=== PATIENT | female | born 1980 | race Caucasian/White ===

== ENCOUNTER 2019-08-31 09:10 | Outpatient (CLI) | payer OTHER, SELFPAY ==
--- NOTE | 2019-08-31 09:30 | MM_ITS ---
WS: [id number] BILATERAL DIGITAL DIAGNOSTIC MAMMOGRAM MAMMOGRAPHY WITH CAD CLINICAL INFORMATION: LUMP IN BREAST HISTORY: Multiple bilateral breast lumps COMPARISON: None available TECHNIQUE: Bilateral CC, MLO, and ML views. FINDINGS: The breasts are composed of heterogeneous fibroglandular density, which can limit the detection of sm all underlying mass lesions. No suspicious abnormalities right breast. Dense breast tissue upper outer left breast in the area of the 2 palpable markers. Ultrasound is pending. ULTRASOUND BILATERAL BREAST TECHNIQUE: Ultrasound bilateral breast focused area of concern. CLINICAL INFORMATION: LUMP IN BREAST FINDINGS: Ultrasound RIGHT breast 9:00 position. No evidence of cystic or solid mass right breast in the area o f concern. No pathologic lesions right breast. Ultrasound LEFT breast at the 12:00 and 2:00 position. Hypoechoic irregular lesion at the 2:00 positi on measuring 1.0 x 0.6 x 0.8 cm. Dense associated shadowing. This lesion has a suspicious appearance and recommend further evaluation with ultrasound-guided biopsy. Additional palpable lesion at the 12:00 position appears to represent a slightly enlarged lymph node measuring 1.0 x 0.4 x 0.9 CM. Echogenic fatty hilum with cortical thickening. This could also be biop sied at the time of above procedure. MM/[place] [id number] IMPRESSION: Recommend Ultrasound guided biopsy of the 2 lesions LEFT breast. BI-RADS: 4C-Suspicious: Moderate FOLLOW UP: US Guided Biopsy Recommended
--- NOTE | 2019-08-31 10:33 | US_ITS ---
WS: [id number] BILATERAL DIGITAL DIAGNOSTIC MAMMOGRAM MAMMOGRAPHY WITH CAD CLINICAL INFORMATION: LUMP IN BREAST HISTORY: Multiple bilateral breast lumps COMPARISON: None available TECHNIQUE: Bilateral CC, MLO, and ML views. FINDINGS: The breasts are composed of heterogeneous fibroglandular density, which can limit the detection of sm all underlying mass lesions. No suspicious abnormalities right breast. Dense breast tissue upper outer left breast in the area of the 2 palpable markers. Ultrasound is pending. ULTRASOUND BILATERAL BREAST TECHNIQUE: Ultrasound bilateral breast focused area of concern. CLINICAL INFORMATION: LUMP IN BREAST FINDINGS: Ultrasound RIGHT breast 9:00 position. No evidence of cystic or solid mass right breast in the area o f concern. No pathologic lesions right breast. Ultrasound LEFT breast at the 12:00 and 2:00 position. Hypoechoic irregular lesion at the 2:00 positi on measuring 1.0 x 0.6 x 0.8 cm. Dense associated shadowing. This lesion has a suspicious appearance and recommend further evaluation with ultrasound-guided biopsy. Additional palpable lesion at the 12:00 position appears to represent a slightly enlarged lymph node measuring 1.0 x 0.4 x 0.9 CM. Echogenic fatty hilum with cortical thickening. This could also be biop sied at the time of above procedure. US/US breast BI limited* [id number] IMPRESSION: Recommend Ultrasound guided biopsy of the 2 lesions LEFT breast. BI-RADS: 4C-Suspicious: Moderate FOLLOW UP: US Guided Biopsy Recommended
== END 2019-08-31 09:11 | disposition home or self-care (01) ==
PROVIDERS: Family Provider Family Medicine; Visit Provider Obstetrics & Gynecology
DX: N63.21 Unspecified lump in the left breast, upper outer quadrant (principal); N63.20 Unspecified lump in the left breast, unspecified quadrant; N63.10 Unspecified lump in the right breast, unspecified quadrant
CPT/HCPCS: 76642; 77066

== ENCOUNTER 2019-09-11 12:05 | Outpatient (CLI) | payer MEDICAID, SELFPAY ==
--- NOTE | 2019-09-11 12:42 | US_ITS ---
WS: [id number] ULTRASOUND-GUIDED LEFT BREAST BIOPSY CLINICAL INFORMATION: LUMP S LEFT BREAST COMPARISON: None. FINDINGS: The procedure including risks, benefits, and complications were discussed with the patient who agreed to proceed. Using sterile technique patient was prepped and draped in the usual sterile fashion. Aft er 1% lidocaine utilizing real-time ultrasound guidance 5 14-gauge cores were obtained of the left br east lesion at the 12 o'clock position. Subsequently a titanium clip was placed in the biopsy cavity. No immediate complications. Attention was then turned to the 2:00 lesion and 5 14-gauge cores were obtained. Titanium clip was pl aced in the biopsy cavity. Pathology demonstrates : Left breast 12:00, needle core biopsy: 1. Changes consistent with fibroadenoma 2. No malignancy identified 3. Microcalifications identified Left breast 2:00, needle core biopsy: 1. Fibrocystic changes and focal changes suggestive of fibroadenoma 2. No malignancy identified 1. Uncomplicated ultrasound-guided left breast biopsy with biopsy of the 12:00 and 2:00 lesions. 2. The pathology demonstrates changes consistent with fibroadenoma at the 12:00 and 2:00 position. N o evidence of malignancy. US/[place] [id number] IMPRESSION: BI-RADS: 2-Benign FOLLOW UP: 1 year Recommend return to annual screening mammography.
== END 2019-09-11 12:06 | disposition home or self-care (01) ==
PROVIDERS: Family Provider Family Medicine; PCP Family Medicine; Visit Provider Obstetrics & Gynecology
DX: N63.21 Unspecified lump in the left breast, upper outer quadrant (principal); R92.0 Mammographic microcalcification found on diagnostic imaging of breast
CPT/HCPCS: 19083; 19084; 88305; J2001

== ENCOUNTER 2020-09-14 18:53 | Emergency (ER) | payer SELFPAY ==
--- NOTE | 2020-09-14 18:55 | XR_ITS ---
WS: [id number] Exam: XR chest 1V portable [id number] Date/Time of Exam: 09/14/2020 7:01 PM Reason For Exam: cp Comparison 02/27/2016. Findings: The lungs are clear and fully expanded. Costophrenic angles are sharp. No infiltrates. Bronchovascula r relief appears normal. Cardiac silhouette is unremarkable. Bony elements are intact. XR/XR chest 1V portable [id number] IMPRESSION: Unremarkable chest radiograph.
[2020-09-14 19:06] VITALS: BP 110/71; PULSE 64; RESP 18; TEMP 36.8; O2SAT 97; BMI 26.9
--- NOTE | 2020-09-14 19:21 | ED_ITS ---
HPI - Chest Pain General: Chief Complaint: Chest Pain Stated Complaint: CHEST PAIN Time Seen by Provider: 09/14/20 19:21 Source: patient and family Mode of arrival: ambulatory Limitations: no limitations History of Present Illness: HPI narrative: 40 yo female comes in with chest pain since 1 pm. She states she felt lightheaded and dizzy with this pain. She states it did resolve but then came back again. She had similar pain last . She did see her PCP on saturday. She is scheduled to see a paralegal supervisor next week. She states it feels like someone is sitting on her chest. She stated her arms felt funny at that time as well. She rated it as a 8-9/10 at it's worse. MD complaint: chest pain and chest heaviness Timing of current episode: still present (less intense pain, now 2/10) Prior episodes: Yes Onset: during rest Pain location: left chest Pain radiation: left arm and jaw/teeth Severity: similar to previous episodes Pain scale (0-10): 9 Quality: heaviness Relieving factors: nothing Exacerbating factors: nothing Associated symptoms: Reports nausea (no new N/V) and vomiting (no new N/V); Deny abdominal pain, diaphoresis, dyspnea, fever(s), leg edema, palpitations, sense of impending doom or syncope Treatment prior to arrival: none Review of Systems General: Reports: 10 or more systems reviewed and unremarkable except in HPI and below Const: Denies: fever(s), chills, body aches, fatigue, night sweats or diaphoresis Eyes: Denies: blurry vision ENMT: Denies: throat pain or odynophagia Card: Reports: chest pain (current chief complaint) and lightheadedness; Denies: palpitations, irregular heart rhythm, edema, swelling of feet/ankles, syncope, pre-syncope, dyspnea on exertion, orthopnea, leg pain with exertion or acrocyanosis Resp: Denies: dyspnea, productive cough, non-productive cough, wheezing, stridor, pain on inspiration or chest congestion GI: Reports: nausea (no new N/V) and vomiting (no new N/V); Denies: abdominal pain, dysphagia, heartburn, diarrhea, constipation or bloating : Denies: flank pain, difficulty voiding or dysuria Musc: Reports: other (arms felt funny); Denies: neck pain, back pain, extremity pain, extremity swelling, joint pain, joint swelling, joint redness, joint warmth, joint stiffness, limited range of motion, muscle cramps, muscle weakness or decrease in muscle mass Neuro: Reports: headache(s) (she stated chest pain went up here jaw into her head); Denies: weakness in extremities, difficulty walking, dizziness, vertigo or confusion Physical Exam Narrative: EXAM NARRATIVE: 40 yo female appears in no acute distress. Const: COMMON NORMALS: no acute distress, average body habitus, patient oriented x3, no limitations, healthy appearing, alert and well nourished GENERAL APPEARANCE: cooperative, comfortable, well kempt and well developed; not in distress and not anxious NUTRITIONAL APPEARANCE: not cachectic ORIENTATION/CONSCIOUSNESS: Yes awake, Yes oriented to person, Yes oriented to place and Yes oriented to time HENMT: COMMON NORMALS: normocephalic and atraumatic HEAD & SCALP: normal to inspection, normocephalic and atraumatic FACE & SINUS: normal facial exam and face symmetric MOUTH: Normal oral and palatal mucosa present Eye: COMMON NORMALS: Equal, round and reactive pupils present, EOMs intact bilaterally, conjunctivae normal and no scleral icterus GENERAL EYE: appearance normal, both eyes and all related structures CONJUNCTIVA: Yes conjunctivae normal PUPIL: Yes Equal, round and reactive pupils present Neck/C-Spine: COMMON NORMALS: full ROM, supple, no meningeal signs and no JVD GENERAL: Yes normal visual inspection and Yes trachea midline Resp: COMMON NORMALS: normal respiratory effort, No retractions, No use of accessory muscles and clear to auscultation bilaterally EFFORT & INSPECTION: Yes able to speak in complete sentences, Yes symmetric chest movement, No respiratory distress, No decreased respiratory effort and No uses accessory muscles AUSCULTATION: clear to auscultation bilaterally Cardio: COMMON NORMALS: no JVD, regular rate, regular rhythm and No murmurs present (Cardio) JUGULAR VENOUS DISTENTION: no JVD RATE: regular rate RHYTHM: regular rhythm GI: COMMON NORMALS: Soft to palpation, non-tender and No hepatosplenomegaly present INSPECTION: Yes normal to inspection PALPATION: Yes Soft to palpation and Yes No hepatosplenomegaly present : COMMON NORMALS: Yes no CVA tenderness BLADDER/KIDNEY EXAM: Yes no CVA tenderness Back/Pelvis: COMMON NORMALS: no CVA tenderness THORACIC SPINE/UPPER BACK: Yes thoracic spinal tenderness and Yes paraspinal muscle tenderness Extremity: COMMON NORMALS: normal to inspection, full ROM, capillary refill normal, no joint enlargement, no clubbing, cyanosis or edema, no calf tenderness and no pedal edema Neuro: COMMON NORMALS: patient oriented x3 SENSORIUM/ORIENTATION: Yes alert, Yes oriented to person, Yes oriented to place and Yes oriented to time MENINGEAL SIGNS: Yes no meningeal signs Psych: APPEARANCE: Yes well kempt Skin: COMMON NORMALS: no rashes or lesions noted, no wounds, turgor normal, no jaundice, no petechiae and no mottling GENERAL SKIN EXAM: no rashes or lesions noted and turgor normal Course Vital Signs: Vital signs: Vital Signs Temperature 98.3 F 09/14/20 19:06 Pulse Rate 86 09/14/20 21:16 Respiratory Rate 22 H 09/14/20 21:16 Blood Pressure 110/77 09/14/20 21:16 Pulse Oximetry 98 09/14/20 21:16 MDM - Chest Pain Lab Data: Labs: Lab Results 09/14/20 09/14/20 09/14/20 Range/Units 19:29 19:29 19:29 WBC 7.8 (4.0-10.0) 10^3/ uL RBC 4.94 (4.1-5.3) 10^6/u L Hgb 12.6 (11.5-15.3) g/dL Hct 39.2 (37.0-47.0) % MCV 79.4 L (81-99) fL MCH 25.5 L (28.0-34.0) pg MCHC 32.1 (30.0-36.0) g/dL RDW 15.3 H (12.1-15.1) % Plt Count 370 (130-400) 10^3/c mm MPV 9.5 (7.4-10.4) fL Neut % (Auto) 53.3 % Lymph % (Auto) 38.7 % Wilkes % (Auto) 6.5 % Eos % (Auto) 1.0 % Baso % (Auto) 0.4 % Neut # (Auto) 4.17 (1.8-7.7) 10^3/u L Lymph # (Auto) 3.0 (0.8-4.8) 10^3/u L Wilkes # (Auto) 0.5 (0.2-0.9) 10^3/u L Eos # (Auto) 0.1 (0.0-0.8) 10^3/u L Baso # (Auto) 0.0 (0.0-0.1) 10^3/u L Nucleated RBC % (a uto) 0 % Nucleated RBCs # 0.0 /100WBC Sodium 142 (136-145) mmol/L Potassium 3.9 (3.5-5.1) mmol/L Chloride 108 H (98-107) mmol/L Carbon Dioxide 19 L (22-29) mmol/L Anion Gap 18.9 (5-19) BUN 8 (6-20) mg/dL Creatinine 0.7 (0.5-0.9) mg/dL GFR Calculation 93.2 (90-130) mL/min Glucose 86 (65-115) mg/dL Calculated Osmolal ity 292 (285-295) mOsm/k g Calcium 8.5 (8.5-10.5) mg/dL Total Bilirubin 0.2 (0.15-1.2) mg/dL AST 18 (0-32) U/L ALT 12 (0-33) U/L Alkaline Phosphata se 74 (35-105) IU/L Troponin T Baselin e 9 (0-10) ng/L Troponin T 120 Min praveen (0-10) ng/L Delta Troponin T (0-10) ABS# Total Protein 7.8 (6.6-8.7) g/dL Albumin 4.4 (3.5-5.2) g/dL Globulin 3.4 (1.3-4.6) g/dL 09/14/20 Range/Units 21:00 WBC (4.0-10.0) 10^3/ uL RBC (4.1-5.3) 10^6/u L Hgb (11.5-15.3) g/dL Hct (37.0-47.0) % MCV (81-99) fL MCH (28.0-34.0) pg MCHC (30.0-36.0) g/dL RDW (12.1-15.1) % Plt Count (130-400) 10^3/c mm MPV (7.4-10.4) fL Neut % (Auto) % Lymph % (Auto) % Wilkes % (Auto) % Eos % (Auto) % Baso % (Auto) % Neut # (Auto) (1.8-7.7) 10^3/u L Lymph # (Auto) (0.8-4.8) 10^3/u L Wilkes # (Auto) (0.2-0.9) 10^3/u L Eos # (Auto) (0.0-0.8) 10^3/u L Baso # (Auto) (0.0-0.1) 10^3/u L Nucleated RBC % (a uto) % Nucleated RBCs # /100WBC Sodium (136-145) mmol/L Potassium (3.5-5.1) mmol/L Chloride (98-107) mmol/L Carbon Dioxide (22-29) mmol/L Anion Gap (5-19) BUN (6-20) mg/dL Creatinine (0.5-0.9) mg/dL GFR Calculation (90-130) mL/min Glucose (65-115) mg/dL Calculated Osmolal ity (285-295) mOsm/k g Calcium (8.5-10.5) mg/dL Total Bilirubin (0.15-1.2) mg/dL AST (0-32) U/L ALT (0-33) U/L Alkaline Phosphata se (35-105) IU/L Troponin T Baselin e (0-10) ng/L Troponin T 120 Min praveen 8.92 (0-10) ng/L Delta Troponin T -0.08 L (0-10) ABS# Total Protein (6.6-8.7) g/dL Albumin (3.5-5.2) g/dL Globulin (1.3-4.6) g/dL Discharge Plan Discharge Prescriptions: No Action No Known Home Medications RF: 0 Referrals: Rakesh Cruz [Primary Care Provider] - Coding Level of Care Code ED Monorail Operator for Camilla Brown
[2020-09-14 19:36] LABS: Basophils % 0.4 %; Eosinophils # 0.1 10^3/uL (0.0-0.8); Hematocrit 39.2 % (37.0-47.0); Hemoglobin 12.6 g/dL (11.5-15.3); Lymphocytes % 38.7 %; Mean Corpuscular HGB Conc 32.1 g/dL (30.0-36.0); Mean Corpuscular Hemoglobin 25.5 pg (28.0-34.0); Mean Corpuscular Volume 79.4 fL (81-99); Mean Platelet Volume 9.5 fL (7.4-10.4); Monocytes # 0.5 10^3/uL (0.2-0.9); Monocytes % 6.5 %; Neutrophils # 4.17 10^3/uL (1.8-7.7); Neutrophils % 53.3 %; Nucleated Red Blood Cells % 0 %; Platelet Count 370 10^3/cmm (130-400); Red Blood Count 4.94 10^6/uL (4.1-5.3); Red Cell Distribution Width 15.3 % (12.1-15.1); White Blood Count 7.8 10^3/uL (4.0-10.0)
[2020-09-14 19:53] VITALS: PULSE 96; RESP 21; O2SAT 99
--- NOTE | 2020-09-14 19:53 | PC.NURSE ---
EKG taken and given to provider
[2020-09-14 20:23] LABS: Troponin(5th) Baseline 9 ng/L (0-10)
[2020-09-14 20:24] LABS: Alanine Aminotransferase 12 U/L (0-33); Albumin Level 4.4 g/dL (3.5-5.2); Alkaline Phosphatase 74 IU/L (35-105); Anion Gap 18.9 (5-19); Aspartate Amino Transferase 18 U/L (0-32); Blood Urea Nitrogen 8 mg/dL (6-20); Calcium 8.5 mg/dL (8.5-10.5); Carbon Dioxide 19 mmol/L (22-29); Chloride 108 mmol/L (98-107); Globulin 3.4 g/dL (1.3-4.6); Glomerular Filtration Rate 93.2 mL/min (90-130); Glucose 86 mg/dL (65-115); Osmolality Calculated 292 mOsm/kg (285-295); Potassium 3.9 mmol/L (3.5-5.1); Sodium 142 mmol/L (136-145); Total Bilirubin 0.2 mg/dL (0.15-1.2); Total Protein 7.8 g/dL (6.6-8.7)
[2020-09-14 20:48] VITALS: BP 121/53; PULSE 83; RESP 20; O2SAT 99
--- NOTE | 2020-09-14 21:09 | PC.NURSE ---
when coming out of another exam room the visitor for this patient was leaving the room stating how do I get the hell out of here . When this nurse went into patient exam room patient was pacing, visibly upset, saying I have to leave now or he'll leave me, he's got my truck keys. Asked patient if she wanted to speak with Dr. Cadet. Patient said no, get this IV out now . This nurse notified Dr. Cadet and asked community health representative to get AMA form. AMA form signed and IV dc'd.
[2020-09-14 21:16] VITALS: BP 110/77; PULSE 86; RESP 22; O2SAT 98
[2020-09-14 21:24] LABS: Troponin 5 2HR 8.92 ng/L (0-10)
[2020-09-14 21:28] LABS: Troponin 5 2HR Delta -0.08 ABS# (0-10)
== END 2020-09-14 21:16 | disposition left against medical advice (07) ==
PROVIDERS: Emergency Medicine; Emergency Provider Emergency Medicine; PCP Family Medicine
DX: R07.9 Chest pain, unspecified (principal)
CPT/HCPCS: 71045; 80053; 84484; 85025; 99284

== ENCOUNTER 2020-10-06 07:00 | Outpatient (CLI) | payer SELFPAY ==
--- NOTE | 2020-10-06 07:15 | USCV_ITS ---
Eloina Orellana Age: 40 Gender: F : 1980 Exam Date: 10/06/2020 07:31 Ordering Phys: Samara Mathews MD ([email or web address]) Technologist: Mckay Casillas Exam Location: [facility] [place] Indication: PALPITATIONS BP: 109 / 66 HR: 47 Rhythm: Sinus Technical Quality: Good MEASUREMENTS (Male / Female) Normal Values 2D ECHO LV Diastolic Diameter PLAX 4.6 cm 4.2 - 5.9 / 3.9 - 5.3 cm LV Systolic Diameter PLAX 2.2 cm IVS Diastolic Thickness 1.5 cm 0.6 - 1.0 / 0.6 - 0.9 cm IVS Systolic Thickness 1.7 cm LVPW Diastolic Thickness 1.3 cm 0.6 - 1.0 / 0.6 - 0.9 cm LVPW Systolic Thickness 2.4 cm LVOT Diameter 2.0 cm LV Ejection Fraction 2D Teich 83.1 % LV Ejection Fraction MOD 2C 85.1 % LV Ejection Fraction 2C AL 87.4 % LA Diameter 3.6 cm LA Width 4.4 cm LA Height 5.0 cm RA Width 4.0 cm RA Height 4.2 cm Aorta at Sinotubular Diameter 2.9 cm M-MODE LV Diastolic Diameter MM 4.7 cm 4.2 - 5.9 / 3.9 - 5.3 cm LV Systolic Diameter MM 2.3 cm LV Ejection Fraction MM Teich 83.2 % IVS Diastolic Thickness MM 0.9 cm 0.6 - 1.0 / 0.6 - 0.9 cm IVS Systolic Thickness MM 1.5 cm LVPW Diastolic Thickness MM 1.2 cm 0.6 - 1.0 / 0.6 - 0.9 cm LVPW Systolic Thickness MM 1.9 cm Aortic Annulus Diameter 2.9 cm LA Ao Ratio MM 1.2 MV E Point Septal Separation 0.3 cm DOPPLER AV Peak Velocity 358.0 cm/s LVOT Peak Velocity 264.0 cm/s AV Area Cont Eq vti 2.8 cm squared AV Area Cont Eq pk 2.3 cm squared MV Area PHT 3.7 cm squared Mitral E to A Ratio 1.4 MV E' Velocity 50.0 cm/s Mitral E to MV E' Ratio 7.4 Mitral E to LV E' Lateral Ratio 6.8 Mitral E to LV E' Septal Ratio 8.4 TR Peak Velocity 209.1 cm/s TR Peak Gradient 17.5 mmHg TR Mean Velocity 143.5 cm/s TR Mean Gradient 9.0 mmHg TR Velocity Time Integral 46.0 cm Right Atrial Pressure 3.0 mmHg Pulmonary Artery Systolic Pressu 20.5 mmHg PV Peak Velocity 104.0 cm/s FINDINGS Left Ventricle Normal left ventricular cavity size. Increased left ventricular wall thickness. Severe concentric left ventricular hypertrophy. Normal left ventricular systolic function. Left ventricular ejection fraction is estimated at 70-75 %. No regional wall motion abnormalities. Normal diastolic function. Right Ventricle Normal right ventricular size and systolic function. Right ventricular systolic pressure 20.5 mmHg. Right Atrium Normal right atrial size. Left Atrium Mildly increased left atrial size. Mitral Valve Moderately thickened mitral valve. Systolic anterior motion of anterior mitral valve leaflet. No mitral valve stenosis. Mild somewhat posteriorly directed mitral valve regurgitation. Aortic Valve Possibly bicuspid aortic valve. No aortic valve stenosis. Mild aortic valve regurgitation. Flow acceleration noted in left ventricular outflow tract. Peak velocity through left ventricular outflow tract of 3.6 m/sec and peak gradient 51 mm Hg and mean gradient 24 mm Hg. Tricuspid Valve Structurally normal tricuspid valve. Mild tricuspid valve regurgitation. Pulmonic Valve Pulmonic valve not well visualized. Pericardium No pericardial effusion. Aorta Normal size aortic root and proximal ascending aorta. CONCLUSIONS 1. Normal left ventricular cavity size. Severe concentric left ventricular hypertrophy. Normal left ventricular systolic function. Left ventricular ejection fraction is estimated at 70- 75 %. No regional wall motion abnormalities. Normal diastolic function. 2.Mildly increased left atrial size. 3. Moderately thickened mitral valve. Systolic anterior motion of anterior mitral valve leaflet. Mild somewhat posteriorly directed mitral valve regurgitation. 4. Possibly bicuspid aortic valve. Flow acceleration noted in left ventricular outflow tract. Peak velocity through left ventricular outflow tract of 3.6 m/sec and peak gradient 51 mm Hg and mean gradient 24 mm Hg. No aortic valve stenosis. Mild aortic valve regurgitation. 5. No prior similar studies to compare. Samara Mathews MD (Electronically Signed) Final Date: 09 October 2020 12:04 S
== END 2020-10-06 07:01 | disposition home or self-care (01) ==
LOC: US 07:02
PROVIDERS: PCP Nurse Practitioner Family; Visit Provider Internal Medicine Cardiovascular Disease
DX: R00.2 Palpitations (principal); R01.1 Cardiac murmur, unspecified; I08.0 Rheumatic disorders of both mitral and aortic valves
CPT/HCPCS: 93306

== ENCOUNTER → 2020-11-22 10:13 | Outpatient (BNVA) | payer OTHER, SELFPAY | PROVIDERS: PCP Nurse Practitioner Family; Visit Provider Internal Medicine Cardiovascular Disease | DX: Z01.818 Encounter for other preprocedural examination (principal); Z20.822 Contact with and (suspected) exposure to COVID-19 | CPT/HCPCS: 87635 ==

== ENCOUNTER 2020-11-28 10:37 | Day surgery (SDC) | payer SELFPAY ==
[2020-11-25 08:25] VITALS: BMI 26.9
[2020-11-28 11:07] VITALS: BP 116/64; PULSE 48; RESP 18; TEMP 36.8; O2SAT 100
[2020-11-28] MEDS: sodium chloride 0.9% 1,000 ML 30 ML IV (11:13)
--- NOTE | 2020-11-28 11:41 | ANES.PREANE2 ---
Pre-Anesthetic Assessment Pre-Anesthetic Assessment: Height/Weight: Height 1.57 m Weight 66.678 kg Temp Pulse Resp BP Pulse Ox 98.3 F 48 L 18 116/64 100 11/28/20 11:07 11/28/20 11:07 11/28/20 11:07 11/28/20 11:07 11/28/20 11:07 Preop Diagnosis: HOCM Proposed Procedure: Operation Date: 11/28/20 12:00 Proposed Procedures p ANATOLY 29159 I34.0(Not Applicable) - Samara Mathews MD Familial anesthetic complications: None Was Beta Aditya taken within 24 hours: Yes Was Clonidine taken within 24 hours: N/A Last intake: Intake > 8 hrs Last Liquid Date 11/27/20 Last Solid Date 11/27/20 Social: Social History: Alcohol and Tobacco Comment: 2-4 beers a day Exam: Pre-Anes Outpt Exam: alert, oriented x 3, clear to auscultation bilaterally and regular rate & rhythm Airway: Cervical ROM: WNL MP: 3 Dentition: Other (missing, poor dentition) CV/HEM: Comments: HCM w/ WU, AVR and MVR --> avoid tachycardia, increased contractility, and volume contraction Anesthetic Plan: ASA status: 3 Anesthesia: MAC Risk of > 500 ml blood loss (7ml/kg in children): No Meds/Allergies Current Medications: Current Medications Generic Name Dose Route Start Last Admin Trade Name Freq PRN Reason Stop Dose Admin Sodium Chloride 1,000 mls @ 30 ml s/hr 11/28/20 11:15 11/28/20 11:13 Sodium Chloride 0.9% IV 11/29/20 11:14 30 mls/hr .Q24H YASMIN Administration PFSH Anesthesia PFSH: Medical History (Updated 10/19/20 @ 12:51 by Samara Mathews MD) Aortic valve regurgitation Mitral valve regurgitation Surgical History Hx of section Family History Brother Hypertension Grandmother Hypertension Diabetes Mother Hypertension Stroke Diabetes Cancer Breast Grandfather Cancer Father Cirrhosis of liver Social History Smoking and tobacco status: current every day smoker Alcohol intake: current Alcohol intake frequency: 3 or more drinks per day Marital status: Female Reproductive History: Date of last menstrual period: 11/21/20 Data Anesthesia Cardiac Studies: Holter Monitor 10/12/20
--- NOTE | 2020-11-28 11:45 | W.PM.OPSFHP ---
Same Day Surgery H&P Indication for Procedure/HPI DATE OF PROCEDURE: November 28, 2020 CHIEF COMPLAINT/INDICATIONFOR SURGICAL PROCEDURE: 40 yo woman with suspicion of bicuspid aortic valve and HOCM on last echo. Other findings being: Systolic anterior motion of anterior mitral valve leaflet. Mild somewhat posteriorly directed mitral valve regurgitation. Possibly bicuspid aortic valve. Flow acceleration noted in left ventricular outflow tract. Peak velocity through left ventricular outflow tract of 3.6 m/sec and peak gradient 51 mm Hg and mean gradient 24 mm Hg. No aortic valve stenosis. Mild aortic valve regurgitation. She is here today for assessment of aortic valve, mitral valve and LVOT. PREOP DIAGNOSIS: HOCM PLANNED PROCEDRUE: Operation Date: 11/28/20 12:00 Proposed Procedures p ANATOLY 67526 I34.0(Not Applicable) - Samara Mathews MD Medications/Allergies* Home Medications Medication Instructions Recorded Confirmed Type ondansetron HCl 4 mg tablet 4 mg PO Q8H 09/21/20 11/28/20 History Allergies/Adverse Reactions Allergy/AdvReac Type Severity Reaction Status Date / Time morphine Allergy ALGY-Hives Verified 11/28/20 11:06 Current Medications: Generic Name Dose Route Start Last Admin Trade Name Freq PRN Reason Stop Dose Admin Sodium Chloride 1,000 mls @ 30 mls/hr 11/28/20 11:15 11/28/20 11:13 Sodium Chloride 0.9% IV 11/29/20 11:14 30 mls/hr .Q24H YASMIN Administration Pertinent History/Comorbid Conditions* Medical History (Updated 10/19/20 @ 12:51 by Samara Mathews MD) Aortic valve regurgitation Mitral valve regurgitation Surgical History (Updated 09/21/20 @ 10:32 by Samara Mathews MD) Hx of section Family History (Updated 09/21/20 @ 10:05 by Apple Soriano RN) Diabetes Grandmother Mother Cirrhosis of liver Father Cancer Mother Breast Grandfather Hypertension Brother Grandmother Mother Stroke Mother Social History Smoking and tobacco status: current every day smoker Alcohol intake: current Alcohol intake frequency: 3 or more drinks per day Marital status: Pertinent Exam Findings alert, oriented x 3, clear to auscultation bilaterally, regular rate & rhythm and procedure specific exam findings (ASA II, Airway 3) Recommendations Surgery/Procedure today Coding Level of Care Code Acute Nematology Teacher for Xenag Stephanie
--- NOTE | 2020-11-28 12:00 | USCV_ITS ---
Eloina Orellana Age: 40 Gender: F : 1980 Exam Date: 11/28/2020 12:15 Ordering Phys: Samara Mathews MD ([email or web address]) Technologist: Shayy Daily Exam Location: [facility] – [place] Indication: Severe left ventricular hypertrophy, bicuspid aortic valve, aortic regurgitation, ?HOCM BP: 126 / 49 HR: 64 Rhythm: Sinus Technical Quality: Good MEASUREMENTS (Male / Female) Normal Values DOPPLER AV Peak Velocity 365.8 cm/s LVOT Peak Velocity 306.0 cm/s Medications Patient given IV sedation by anesthesia service, for details please refer to the anesthesia report. Complications To patient easily. Attempts x1. No blood on probe post procedure. Patient tolerated procedure well. Proc. Components The patient was brought to the ANATOLY examination room in a fasting state after obtaining an informed consent. The ANATOLY probe was passed into the posterior pharynx , mid-esophagus, distal esophagus, and gastric fundus. The patient tolerated the procedure well and there were no complications. FINDINGS Left Ventricle Normal left ventricular cavity size and systolic function. Moderately to markedly increased left ventricular wall thickness. Severe asymmetric left ventricular hypertrophy ( IVSd=2.7 cm, LVPWd=1.3 cm) . Left ventricular ejection fraction is estimated at 70-75 %. No regional wall motion abnormalities. Flow acceleration noted in left ventricular outflow tract. Peak left-ventricular outflow velocity of 4 m/s and peak gradient 64 mmHg. Right Ventricle Normal right ventricular size and systolic function. Right ventricular systolic pressure 29 mmHg. Right Atrium Normal right atrial size. Left Atrium Mildly increased left atrial size. LA Appendage Normal left atrial appendage. Normal flow velocities in the left atrial appendage. No thrombus visualized in the left atrial appendage. IA Septum Normal interatrial septum. No patent foramen ovale or atrial septal defect by color Doppler or agitated saline study. Mitral Valve Systolic anterior motion of anterior mitral leaflet. No mitral valve stenosis. Trace to mild eccentric mitral valve regurgitation. Aortic Valve Bicuspid Type 1 aortic valve (fusion of right and left coronary cusp). No aortic valve stenosis. Mild to moderate aortic valve regurgitation. Tricuspid Valve Structurally normal tricuspid valve. No tricuspid valve stenosis. Trace to mild tricuspid valve regurgitation. Pulmonic Valve Structurally normal pulmonic valve. Trace pulmonary valve regurgitation. Pericardium No pericardial effusion. Aorta Normal size aortic root and proximal ascending aorta. No aortic dilation aneurysm or dissection noted. CONCLUSIONS 1. Normal left ventricular cavity size and systolic function. Moderately to markedly increased left ventricular wall thickness. Severe asymmetric left ventricular hypertrophy ( IVSd=2.7 cm, LVPWd=1.3 cm) . Left ventricular ejection fraction is estimated at 70-75 %. No regional wall motion abnormalities. 2. Flow acceleration noted in left ventricular outflow tract. Peak left-ventricular outflow velocity of 4 m/s and peak resting gradient 64 mmHg. 3. Bicuspid Type 1 aortic valve (fusion of right and left coronary cusp). No aortic valve stenosis. Mild to moderate aortic valve regurgitation. 4. Systolic anterior motion of anterior mitral leaflet. Trace to mild eccentric mitral valve regurgitation. 5. Pulmonary artery pressure estimated at 29 mmHg. 6. No prior similar studies to compare. Samara Mathews MD (Electronically Signed) Final Date: 09 December 2020 17:05 S
--- NOTE | 2020-11-28 13:08 | PM.ACPR ---
Procedure/Consent Time out: Time Out Performed: Yes Consent: Consent for Procedure: Consent obtained from patient, Risks & Benefits reviewed and Agrees to proceed with procedure Procedure Narrative: ANATOLY Procedure note Indication: Evaluation of aortic valve, mitral valve and HOCM Sedation: Propofol by anesthesia The patient was brought down to the GI lab. Procedure was explained to the patient in detail and informed consent was obtained. Timeout was called. After achieving adequate sedation, the probe was inserted on first attempt. No blood on the probe post procedure. Prelim report: Normal left ventricle size and systolic function. Asymmetric left ventricular hypertrophy with WU of anterior mitral valve leaflet. At least moderate MR. Bicuspid aortic valve. No left atrial or left atrial appendage mass or thrombus visualized. No ASD or PFO identified. Full report to follow. Patient tolerated the procedure well and initial recovery in GI lab and subsequently was discharged home. No changes to medications were made. Acute Procedures Epistaxis Control: Time out performed: Yes
[2020-11-28 13:09] VITALS: BP 101/58; PULSE 69; RESP 18; TEMP 36.6; O2SAT 97
[2020-11-28 13:23] VITALS: BP 94/62; PULSE 60; RESP 18; O2SAT 99
--- NOTE | 2020-11-28 14:24 | ANE.PACU2 ---
Inpatient post-anesthesia follow up: Airway intact: Yes Vital signs: Temperature 97.8 F Pulse Rate 60 Respiratory Rate 18 Blood Pressure 94/62 Pulse Oximetry 99 Oxygen Delivery Me thod Room Air Oxygen Flow Rate Fraction of Inspir ed Oxygen Hydration adequate: Yes Nausea and vomiting: No Pain level: 2 Mental status: Baseline
== END 2020-11-28 13:59 | disposition home or self-care (01) ==
PROVIDERS: PCP Nurse Practitioner Family; Visit Provider Internal Medicine Cardiovascular Disease
PROC: (CPT 93312; principal; 2020-11-28 12:00)
DX: I34.0 Nonrheumatic mitral (valve) insufficiency (principal); F17.210 Nicotine dependence, cigarettes, uncomplicated
CPT/HCPCS: 81025; 93312; 93318; 93320; 93325; 96360; 96361; J2704; J7030

== ENCOUNTER 2020-12-07 10:59 | Outpatient (CLI) | payer SELFPAY ==
[2020-12-07 12:03] VITALS: BMI 28.7
--- NOTE | 2020-12-07 12:04 | ECG_ITS ---
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 Interpretive Statements NAME OF STUDY: TREADMILL STRESS ECHOCARDIOGRAM INDICATION: Hypertrophic cardiomyopathy protocol PROCEDURE: At the baseline, the patient's blood pressure was 153/77 mm Hg with a heart rate of 58 bpm. The baseline electrocardiogram showed normal sinus rhythm, right axis deviation, IVCD. Possible old anteroseptal infarct. The patient exercised for 6 minutes and 21 seconds on a [standard Carlos A protocol]. Patient attained a maximum heart rate of 131 beats per minute( 72 % of the maximum predicted heart rate) with a blood pressure at the peak exercise of 1773/81 mm Hg. The EKG at the peak exercise revealed sinus tachycardia with no significant St-T wave changes. Patient did not have any chest pain or any significant EKG changes with the exercise. Study was terminated due to exertional fatigue. During the recovery phase, there were no new changes. Blood pressure at the end of the recovery phase was 91/74 mm Hg with a heart rate of 68 beats per minute. Echocardiographic pictures were taken at the baseline, immediately following the peak exercise and during the recovery phase. CONCLUSION: 1. Normal EKG response to treadmill exercise with submaximal stress. 2. No exercise-induced chest pain or cardiac arrhythmia. 3. Patient reached 72% MPHR after exercising for 6 minutes 20 seconds. Decreased for age exercise tolerance, attained a maximum of 10.2 METs. Maximum VO2 of 35.7 ml/kg/min. 4. Please see separate report for the echocardiographic response to exercise. Electronically Signed On 12-16-2020 8:04:06 CDT by Samara Mathews M.D. [id number]
--- NOTE | 2020-12-07 12:12 | USCV_ITS ---
Stress Echo Eloina Orellana Age: 40 Gender: F : 1980 Exam Date: 12/07/2020 12:25 Ordering Phys: Samara Mathews MD ([email or web address]) Technologist: Exam Location: [facility] – [place] Indication: HCM Protocol Rhythm: Sinus Patient History: Cardiac Medications: Beta bill Medications in past 24 hours: Contrast: Stress Results Protocol: Carlos A Total dose(mL): Exercise Duration (min:sec): 6:20 METS: 10.2 Resting HR: 69 Resting BP: 153 / 77 Peak HR: 131 Peak BP: 173 / 93 Max Predicted HR: 181 72 % Max Predicted HR Target HR: 154 Double Product: [id number] Stress Summary: The patient's target heart rate was not achieved due to fatigue BP Response: Normal Reason for Termination: Maximal effort/unable to continue Cardiac Symptoms: None ECG Analysis Resting ECG: Stress ECG: Arrhythmia: MEASUREMENTS (Male/Female) Normal Values FINDINGS PROCEDURE: At the baseline, the patient's blood pressure was 153/77 mmHg with a heart rate of 69 bpm. The patient exercised for 6 minutes and 20 seconds on a standard Carlos A protocol. Patient attained a maximum heart rate of 131 beats per minute( 72 % of the maximum predicted heart rate) with a blood pressure at the peak exercise of 173/93 mm Hg. During the recovery phase, there were no new changes. Echocardiographic pictures were taken at the baseline, immediately following the peak exercise and during the recovery phase. Baseline echocardiogram: Normal left ventricular size and hyperdynamic systolic function with ejection fraction estimated at 75 %. No regional wall motion abnormalities. Somewhat asymmetric septal hypertrophy (basal to mid septal wall). Resting left ventricular outflow tract gradient of 71 mm Hg (peak velocity 4.2 m/sec). Left ventricular outflow tract gradient with valsalva of 117 mm Hg (5.4 m.sec). Turbulence noted in left ventricular outflow tract. Thickened and elongated anterior mitral valve leaflet with systolic anterior motion of anterior mitral leaflet. Mild mitral valve regurgitation. Mild to moderate AI. Normal right ventricle size and systolic function. Normal left and right atrial size. No pericardial effusion. Peak exercise echocardiogram: Marked augmentation of left ventricular systolic function with exercise. No new regional wall motion abnormalities. Left ventricular outflow tract gradient post exercise of 96 mm Hg (4.9 m/sec) Recovery echocardiogram: Left ventricular systolic function normalizes. No regional wall motion abnormalities. CONCLUSIONS 1. This is a treadmill stress echocardiogram with HCM protocol. 2. Decreased exercise tolerance for age. Patient exercised for 6 minutes and 20 seconds and achieves peak HR of 131 bpm (72% of maximum predicted heart rate). 3. Normal left ventricular size and hyperdynamic systolic function with ejection fraction estimated at 75 %. No regional wall motion abnormalities. Somewhat asymmetric septal hypertrophy (basal to mid septal wall). Resting left ventricular outflow tract gradient of 71 mm Hg (peak velocity 4.2 m/sec). Left ventricular outflow tract gradient with valsalva of 117 mm Hg (5.4 m.sec). Turbulence noted in left ventricular outflow tract. Thickened and elongated anterior mitral valve leaflet with systolic anterior motion of anterior mitral leaflet. Mild mitral valve regurgitation. Mild to moderate AI 4. Left ventricular outflow tract gradient post exercise of 96 mm Hg (4.9 m/sec). 5. Normal echocardiographic response to sub maximal exercise. 6. Please see separate report for the EKG portion of the study. Samara Mathews MD (Electronically Signed) Final Date: 16 December 2020 07:25 S
[2020-12-07 13:07] VITALS: BP 91/74; PULSE 68
== END 2020-12-07 11:00 | disposition home or self-care (01) ==
LOC: CDL 11:00
PROVIDERS: PCP Nurse Practitioner Family; Visit Provider Internal Medicine Cardiovascular Disease
DX: I42.2 Other hypertrophic cardiomyopathy (principal); I05.9 Rheumatic mitral valve disease, unspecified
CPT/HCPCS: 93017; 93350

== ENCOUNTER 2020-12-08 07:57 | Outpatient (CLI) | payer SELFPAY ==
--- NOTE | 2020-12-08 08:04 | MM_ITS ---
WS: [id number] SCREENING DIGITAL MAMMOGRAM WITH CAD HISTORY: Screening. COMPARISON: 08/31/2019 and 04/07/2018 Bilateral CC and MLO views submitted. Computer aided detection analyzed. Breast composition: The breasts are heterogeneously dense, which may obscure small masses. There is b een a moderate change in appearance of the breasts since the prior study. Increase in the bilateral f ibroglandular densities. Irregular shaped asymmetries are noted posteriorly within each breast, just medial to the nipple line and probably just above the nipple line. There is an additional asymmetry s een in the lateral posterior RIGHT breast. MM/[place] [id number] IMPRESSION: BI-RADS: 0-Incomplete: Need additional imaging evaluation FOLLOW UP: Need Additional Imaging Bilateral breast: Spot compression views (CC and MLO). True ML. Ultrasound to f ollow if abnormality persists.
== END 2020-12-08 07:58 | disposition home or self-care (01) ==
LOC: RADSHAW 08:00
PROVIDERS: PCP Nurse Practitioner Family; Visit Provider Nurse Practitioner Family
DX: Z12.31 Encounter for screening mammogram for malignant neoplasm of breast (principal)
CPT/HCPCS: 77067

== ENCOUNTER 2021-02-08 08:59 | Outpatient (CLI) | payer OTHER, SELFPAY ==
--- NOTE | 2021-02-08 09:19 | US_ITS ---
WS: [id number] ADDITIONAL VIEWS BILATERAL MAMMOGRAM AND BILATERAL BREAST ULTRASOUND ADDITIONAL VIEWS BILATERAL MAMMOGRAM HISTORY: INCONCLUSIVE MAMMOGRAM COMPARISON: 12/08/2020, 08/31/2019 and 04/07/2018 Right breast: Asymmetry in the superior posterior and medial/central RIGHT breast nearly completely r esolves. There is dense fibroglandular tissue persisting for which ultrasound will be submitted. Left breast: Asymmetric density towards the posterior mid LEFT breast nearly completely resolves with additional views. Ultrasound will be performed. BREAST ULTRASOUND RIGHT breast: At 10:00 hypoechoic fibroglandular echoes are identified. Very benign in appearance and is consistent with fibrocystic disease or complex cyst. LEFT breast: Multiple hypoechoic masses are identified in the LEFT breast. These have been previously described an d some of these masses have undergone biopsy as noted on 09/11/2019. These masses are very similar in appearance to each other and prior examinations. 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 As these masses ar e very similar to each other and several prior biopsies were negative no additional workup necessary unless there is a palpable abnormality. US/US breast BI limited* [id number] IMPRESSION: BI-RADS: 2-Benign FOLLOW UP: 1 Year Follow-up
== END 2021-02-08 09:00 | disposition home or self-care (01) ==
LOC: RADSHAW 09:09
PROVIDERS: PCP Nurse Practitioner Family; Visit Provider Nurse Practitioner Family
DX: R92.8 Other abnormal and inconclusive findings on diagnostic imaging of breast (principal); N63.20 Unspecified lump in the left breast, unspecified quadrant
CPT/HCPCS: 76642; 77066

== ENCOUNTER → 2021-06-02 15:22 | Outpatient (BNVA) | payer MEDICAID, SELFPAY | PROVIDERS: PCP Nurse Practitioner Family; Referring Provider Nurse Practitioner Family; Visit Provider Obstetrics & Gynecology | DX: Z12.4 Encounter for screening for malignant neoplasm of cervix (principal); N93.9 Abnormal uterine and vaginal bleeding, unspecified | CPT/HCPCS: 84443; 87624; 88305 ==

== ENCOUNTER → 2021-07-18 09:55 | Outpatient (BNVA) | payer MEDICAID, SELFPAY | PROVIDERS: PCP Nurse Practitioner Family; Visit Provider Obstetrics & Gynecology | DX: N93.9 Abnormal uterine and vaginal bleeding, unspecified (principal); D25.9 Leiomyoma of uterus, unspecified | CPT/HCPCS: 76830 ==

== ENCOUNTER → 2021-08-18 13:02 | Outpatient (BNVA) | payer MEDICAID, SELFPAY | PROVIDERS: PCP Nurse Practitioner Family; Visit Provider Obstetrics & Gynecology | DX: N93.9 Abnormal uterine and vaginal bleeding, unspecified (principal); N94.6 Dysmenorrhea, unspecified; R93.89 Abnormal findings on diagnostic imaging of other specified body structures; Z20.822 Contact with and (suspected) exposure to COVID-19 | CPT/HCPCS: 87635 ==

== ENCOUNTER 2021-08-22 08:36 | Day surgery (SDC) | payer MEDICAID, SELFPAY ==
--- NOTE | 2021-08-21 08:04 | ECG_ITS ---
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 Measurements Intervals [place] Rate: 64 P: 67 TX: 184 QRS: 171 QRSD: 111 T: 47 QT: 420 QTc: 433 Interpretive Statements SINUS RHYTHM POSSIBLE LEFT ATRIAL ENLARGEMENT [-0.1mV P-WAVE IN V1/V2] POSSIBLE RIGHT VENTRICULAR HYPERTROPHY [SOME/ALL OF: PROMINENT R IN V1, LATE TRANSITION, RAD, JACIEL, SSS] ANTERIOR MYOCARDIAL INFARCTION , OF INDETERMINATE AGE [40+ ms Q WAVE AND/OR ST/T ABNORMALITY IN V3/V4] No previous ECG available for comparison Electronically Signed On 08-21-2021 17:19:50 BONDING AGENT by Walter Hennessy M.D. [id number]
[2021-08-21 08:08] VITALS: BMI 28.0
--- NOTE | 2021-08-21 09:46 | P.ANESASSM_ITS ---
Pre-Anesthetic Assessment Height/Weight: Height 1.57 m Weight 69.4 kg Preop Diagnosis: HOCM Operation Date: 08/22/21 10:10 Proposed Procedures p Hysteroscopy w/ Myosure 66180,41343/thick end R93.89/abn uterine blee N93.9(Not Applicable) - Vanda Larson MD Familial anesthetic complications: None Was Beta Aditya taken within 24 hours: Yes Was Clonidine taken within 24 hours: N/A Social Alcohol (Daily beer) and Tobacco Exam alert, oriented x 3, clear to auscultation bilaterally and regular rate & rhythm Airway Submandibular: within normal limits Cervical ROM: within normal limits Mallampati: Class II Dentition: chipped Pulmonary Chronic Obstructive Pulmonary Disease CV/HEM Hypertension and Murmur (AI and MR) HCM: Echo 12/12 CONCLUSIONS ?1. This is a treadmill stress echocardiogram with HCM protocol.? ?2. Decreased exercise tolerance for age. Patient exercised for 6 ?minutes and 20 seconds and achieves peak HR of 131 bpm (72% of ?maximum predicted heart rate). ?3. Normal left ventricular size and hyperdynamic systolic ?function with ejection fraction estimated at 75 %.? No regional ?wall motion abnormalities.? Somewhat asymmetric septal ?hypertrophy (basal to mid septal wall). Resting left ventricular ?outflow tract gradient of 71 mm Hg (peak velocity 4.2 m/sec).? ?Left ventricular outflow tract gradient with valsalva of 117 mm ?Hg (5.4 m.sec). Turbulence noted in left ventricular outflow ?tract. Thickened and elongated anterior mitral valve leaflet ?with systolic anterior motion of anterior mitral leaflet. Mild ?mitral valve regurgitation. Mild to moderate AI ?4. Left ventricular outflow tract gradient post exercise of 96 ?mm Hg (4.9? m/sec). ?5. Normal echocardiographic response to sub maximal exercise. ?6. Please see separate report for the EKG portion of the study. GI Gastroesophageal Reflux Disease Anesthetic Plan ASA status: 3 Anesthesia: General Medications/Allergies Home Medications Medication Instructions Recorded Confirmed Last Taken Type ondansetron HCl 4 mg tablet 4 mg PO Q8H 09/21/20 08/21/21 2 Weeks Ago History (Zofran) ~11/14/20 epinephrine 0.3 mg/0.3 mL 0.3 mg IM Q10M PRN 06/02/21 08/21/21 Unknown History injection, auto-injector metoprolol tartrate 25 mg tablet 25 mg PO TID #90 tab 07/06/21 08/21/21 Unknown Rx Allergies Allergy/AdvReac Type Severity Reaction Status Date / Time morphine Allergy ALGY-Hives Verified 07/24/21 13:05 [facility] Anesthesia Medical History Aortic valve regurgitation Mitral valve regurgitation Surgical History History of hernia repair Hx of section Family History Brother Hypertension Grandmother Hypertension Maternal Diabetes Maternal Mother Hypertension Stroke Diabetes Breast cancer Grandfather Cancer Maternal--unsure if liver or lung Father Cirrhosis of liver Denies family history of CAD (coronary artery disease) Hyperlipidemia Chronic kidney disease (CKD) Bleeding disorder Thyroid disease Social History Alcohol intake: current Alcohol intake frequency: 3 or more drinks per day Marital status: Female Reproductive History Date of last menstrual period: 08/04/21 Data Anesthesia Cardiac Studies: Echocardiogram Ultrasound 10/06/20 Transesophageal Echocardiogram 11/28/20 Stress Echocardiogram 12/07/20 Cardiac Event Monitor 05/09/21 Holter Monitor 10/12/20
[2021-08-22] VITALS (8 sets, daily range): BP systolic 92–154; BP diastolic 48–83; PULSE 61–73; RESP 16–18; TEMP 36.1–36.8; O2SAT 99–100
--- NOTE | 2021-08-22 09:01 | ANES.PAUD2 ---
Pre-Anesthetic Update Pre-Anesthetic Assessment: Date of Surgery/Procedure: 08/22/21 Preop Diagnosis: AUB Proposed Procedure: Operation Date: 08/22/21 10:10 Proposed Procedures p Hysteroscopy w/ Myosure 13727,77325/thick end R93.89/abn uterine blee N93.9(Not Applicable) - Vanda Larson MD Any changes to Pre-Anesthetic Assessment?: No Changes from Pre-Anesthetic Assessment: None Last Intake: > 8 hrs Exam: Pre-Anes Outpt Exam: alert, oriented x 3, clear to auscultation bilaterally and regular rate & rhythm Cardiac Studies: Echocardiogram Ultrasound 10/06/20 Transesophageal Echocardiogram 11/28/20 Stress Echocardiogram 12/07/20 Cardiac Event Monitor 05/09/21 Holter Monitor 10/12/20
[2021-08-22] MEDS: sodium chloride 0.9% 1,000 ML 30 ML IV (09:13)
[2021-08-22] MEDS: ketorolac 30 mg/mL INJ IVP (09:15)
[2021-08-22] MEDS: ondansetron 2 mg/ML SDV 2 mL 4 MG IVP (09:15)
[2021-08-22] MEDS: scopolamine 1.5 Patch 1 PATCH TRANSDERMA (09:19)
--- NOTE | 2021-08-22 09:20 | W.PM.OPSUD ---
Surgery/Procedure H&P Update DATE OF PROCEDURE: August 22, 2021 DATE H&P PERFORMED: 08/21/21 H&P UPDATE INFORMATION: I have reviewed H&P completed within last 30 days, I have examined patient prior to procedure and No changes to prior documentation PREOP DIAGNOSIS: AUB PLANNED PROCEDURE: Operation Date: 08/22/21 10:10 Proposed Procedures p Hysteroscopy w/ Myosure 28461,71501/thick end R93.89/abn uterine blee N93.9(Not Applicable) - Vanda Larson MD Related Problem List Diagnoses (1) Abnormal uterine bleeding (AUB):
[2021-08-22 09:24] LABS: OR HCG Qualitative Urine Negative (Negative)
--- NOTE | 2021-08-22 10:19 | P.OP_ITS ---
Operative Report Date of procedure: August 22, 2021 Pre-op diagnosis: Preop Diagnosis AUB Post-op diagnosis: same Post-op findings: multiple uterine fibroids and polyps Procedure done: hysteroscopy, dilation and curettage with myosure Specimens removed/disposition: endometrial curettings to pathology Surgeon: Vanda Larson Anesthesia: General Estimated blood loss (mL): 5 IV fluids (mL): 700 Complications: none Findings: hysteroscopy deficit 125 ml Condition: stable Disposition: PACU Procedure: The patient was taken to the operating room where monitored anesthesia was administered and to be adequate. She was prepped and draped in the normal sterile fashion in the dorsal lithotomy position in [facility]. A weighted speculum was placed into the vagina and the anterior lip of the cervix grasped with a single-tooth tenaculum. The uterus was sounded to 8.5 cm. The cervix was dilated to 16 Albanian. The hysteroscope was advanced into the endometrial cavity. There was some extra tissue, polyps, fibroids visualized. The MyoSure device was activated and the tissue was removed. Pictures were taken pre procedure. There was some bleeding with the fibroids and a post procedure picture was unable to be obtained. All instruments were removed. The patient tolerated the procedure well. Sponge lap and needle counts were correct x3. She was taken to the recovery room in stable condition.
--- NOTE | 2021-08-22 10:25 | PM.DCS ---
Discharge Providers Date of Admission: 08/22/21 Date of Discharge: August 22, 2021 Attending Provider at Admission: Vanda Larson MD Attending Provider at Discharge: Vanda Larson MD Primary Care Provider: PAUL Cantu Diagnoses at Discharge Discharge Diagnosis (1) Abnormal uterine bleeding (AUB): Status: Acute Reason for Visit Reason for Visit: thick endometrium R93.89/N93.9 Hospital Course Hospital Course The patient was admitted for surgery. she did well postoperativley and was ready for discharge. Discharge Data Studies Completed and Pending Pending at discharge Category Date Time Status ES surgery / GI images Routine Exams 08/22/21 09:07 Taken Pathology: Surgical [PTH] Routine Pth 08/22/21 09:56 Ordered Laboratory Results Urine HCG, Qual Negative (Negative) 08/22/21 09:19 Vitals Last Vital Signs Temp 98.2 F 08/22/21 10:16 Pulse 70 08/22/21 10:20 Resp 18 08/22/21 10:20 BP 147/65 08/22/21 10:20 Pulse Ox 100 08/22/21 10:20 Discharge Plan Discharge Patient Disposition: Home Condition: Stable Prescriptions: Continued ondansetron HCl [Zofran] 4 mg tablet 4 mg PO Q8H 0RF epinephrine 0.3 mg/0.3 mL auto-injector 0.3 mg IM Q10M PRN (Reason: wasp stings) 0RF Rx Instructions: for 2 doses metoprolol tartrate 25 mg tablet 25 mg PO TID Qty: 90 11RF Discharge Orders: Discharge Order (Routine); Ordered 08/22/21 Ordered By: Vanda Larson Discharge Attestations Time Spent in Discharge Care*: less than 30 min Quality Metrics Clinical Quality Measures [ No reported AMI, CVA or VTE this stay] Coding Level of Care Code Acute Chg FW DC note Diagnoses Abnormal uterine bleeding (AUB) N93.9
--- NOTE | 2021-08-22 12:51 | ANE.PACU2 ---
Inpatient post-anesthesia follow up: Airway intact: Yes Vital signs: Temperature 97.0 F Pulse Rate 66 Respiratory Rate 16 Blood Pressure 121/62 Pulse Oximetry 99 Oxygen Delivery Me thod Room Air Oxygen Flow Rate Fraction of Inspir ed Oxygen Hydration adequate: Yes Nausea and vomiting: No Pain level: 2 Mental status: Baseline
== END 2021-08-22 11:08 | disposition home or self-care (01) ==
PROVIDERS: Anesthesiology; PCP Nurse Practitioner Family; Visit Provider Obstetrics & Gynecology
PROC: 0UDB8ZZ Extraction of Endometrium, Via Natural or Artificial Opening Endoscopic (ICD-10-PCS; CPT 58558; principal; 2021-08-22 10:00)
DX: D25.9 Leiomyoma of uterus, unspecified (principal); N93.9 Abnormal uterine and vaginal bleeding, unspecified; J44.9 Chronic obstructive pulmonary disease, unspecified; I10 Essential (primary) hypertension; Z82.49 Family history of ischemic heart disease and other diseases of the circulatory system
CPT/HCPCS: 58558; 81025; 84703; 88305; 93005; 96374; 96375; J0690; J1100; J1200; J1885; J2250; J2405; J2704; J3010; J7030

== ENCOUNTER → 2022-01-30 14:57 | Outpatient (BNVA) | payer MEDICAID, SELFPAY | PROVIDERS: PCP Nurse Practitioner Family; Visit Provider Internal Medicine Cardiovascular Disease | DX: R00.2 Palpitations (principal); R55 Syncope and collapse; I42.2 Other hypertrophic cardiomyopathy; Q23.1 Congenital insufficiency of aortic valve; F17.200 Nicotine dependence, unspecified, uncomplicated | CPT/HCPCS: 99213; 99214 ==

== ENCOUNTER 2022-06-19 10:52 | Outpatient (CLI) | payer MEDICAID, SELFPAY ==
--- NOTE | 2022-06-19 10:58 | MM_ITS ---
WS: [id number] SCREENING DIGITAL BREAST TOMOSYNTHESIS MAMMOGRAM WITH CAD HISTORY: SCREENING COMPARISON: 09/11/2019, 12/08/2020, 02/08/2021, 08/31/2019 Bilateral CC and MLO with tomosynthesis and synthetic mammography submitted. Computer aided detection analyzed. Breast composition: The breasts are heterogeneously dense, which may obscure small masses. 2 prior br east biopsy clips are noted in the LEFT breast, one at 12:00 and one in the upper-outer quadrant. The re is an additional partially obscured mass in the posterior LEFT breast against the chest wall which is just medial to the nipple line. This appears slightly smaller in size as compared to prior studie s but better visualized due to reduction in the fibroglandular densities. This mass has not definitel y been visualized on prior ultrasounds. Attempt at visualizing by ultrasound is recommended. The RIGH T breast is negative. MM/[id number] IMPRESSION: BI-RADS: 0-Incomplete: Need additional imaging evaluation FOLLOW UP: Need Additional Imaging Recommendation: LEFT breast ultrasound directed along the chest wall central an d just medial to the nipple line. There is a partially obscured nodule measurin g approximately 12 mm. This mass has not been previously described. 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 Ultrasound should be directed t o the posterior LEFT breast along the chest wall. The previously biopsied fibro adenomas do not need to be breech imaged.
== END 2022-06-19 10:53 | disposition home or self-care (01) ==
LOC: RAD 10:53
PROVIDERS: PCP Nurse Practitioner Family; Visit Provider Nurse Practitioner Family
DX: Z12.31 Encounter for screening mammogram for malignant neoplasm of breast (principal)
CPT/HCPCS: 77063; 77067

== ENCOUNTER 2022-06-27 13:11 | Outpatient (CLI) | payer MEDICAID, SELFPAY ==
--- NOTE | 2022-06-27 13:20 | US_ITS ---
WS: [id number] ULTRASOUND BREAST LEFT TECHNIQUE: Ultrasound left breast focused area of concern. CLINICAL INFORMATION: ABNORMAL MAMMO COMPARISON: June 19, 2022 and FINDINGS: Ultrasound LEFT breast 10:00-11:00 position and 4 cm from the nipple near the chest wall. Well-circum scribed hypoechoic nodule measuring 1.6 x 0.8 x 1.4 CM. This appears to correspond to the prior lesio n at the 10:00 position 4 cm from the nipple identified on February 08, 2021. This does not appear sign ificantly changed and has imaging characteristics compatible with fibroadenoma. 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 No other suspicious findings. US/US breast LT limited* [id number] IMPRESSION: Recommend return to annual screening mammography.
== END 2022-06-27 13:12 | disposition home or self-care (01) ==
PROVIDERS: PCP Nurse Practitioner Family; Visit Provider Nurse Practitioner Family
DX: R92.8 Other abnormal and inconclusive findings on diagnostic imaging of breast (principal)
CPT/HCPCS: 76642

== ENCOUNTER 2023-02-20 08:27 | Outpatient (CLI) | payer MEDICAID, SELFPAY ==
--- NOTE | 2023-02-20 08:45 | USCV_ITS ---
Eloina Orellana Age: 42 Gender: F : 1980 Exam Date: 02/20/2023 08:39 Ordering Phys: Samara Mathews MD ([email or web address]) Technologist: Shayy Daily Exam Location: [facility] [place] Indication: HCM, SOB, bicuspid AOV BP: 104 / 60 HR: 51 Rhythm: Sinus Technical Quality: Good MEASUREMENTS (Male / Female) Normal Values 2D ECHO LV Diastolic Diameter PLAX 4.5 cm 4.2 - 5.9 / 3.9 - 5.3 cm LV Systolic Diameter PLAX 1.9 cm IVS Diastolic Thickness 1.5 cm 0.6 - 1.0 / 0.6 - 0.9 cm IVS Systolic Thickness 2.4 cm LVPW Diastolic Thickness 1.1 cm 0.6 - 1.0 / 0.6 - 0.9 cm LVPW Systolic Thickness 2.2 cm LVOT Diameter 2.0 cm LV Ejection Fraction 2D Teich 87.8 % LV Ejection Fraction MOD 2C 91.5 % LV Ejection Fraction 2C AL 93.0 % LA Diameter 3.3 cm LA Width 3.7 cm LA Height 3.3 cm RA Width 2.6 cm RA Height 3.7 cm Aorta at Sinotubular Diameter 2.2 cm IVC Diameter 1.4 cm M-MODE MV E Point Septal Separation 0.7 cm DOPPLER AV Peak Velocity 413.3 cm/s LVOT Peak Velocity 347.0 cm/s AV Area Cont Eq vti 2.2 cm squared AV Area Cont Eq pk 2.6 cm squared MV Peak Velocity 163.0 cm/s MV Area PHT 2.7 cm squared Mitral E to A Ratio 1.8 MV E' Velocity 44.8 cm/s Mitral E to MV E' Ratio 10.3 Mitral E to LV E' Lateral Ratio 12.2 Mitral E to LV E' Septal Ratio 8.9 TR Peak Velocity 242.8 cm/s TR Peak Gradient 23.6 mmHg Right Atrial Pressure 5.0 mmHg Pulmonary Artery Systolic Pressu 28.6 mmHg PV Peak Velocity 240.7 cm/s RV Acceleration Time 0.2 s RV Ejection Time 0.3 s RV AcT/ET 0.5 FINDINGS Left Ventricle Normal left ventricular size, systolic function and markedly increased wall thickness, with no regional wall motion abnormalities. Severe asymmetric left ventricular hypertrophy (IVSd=2.3 cm, PWd=1.6 cm) Left ventricular ejection fraction is estimated at 75 %. Grade II diastolic dysfunction, moderately elevated filling pressures. Right Ventricle Normal right ventricular size and systolic function. Right ventricular systolic pressure 28.6 mmHg. Right Atrium Normal right atrial size. Left Atrium Mildly increased left atrial size. Mitral Valve Severely thickened mitral valve. No mitral valve stenosis. Mild mitral valve regurgitation. Systolic anterior motion of anterior mitral valve leaflet. Aortic Valve Aortic valve not well visualized. Possibly bicuspid aortic valve. Flow acceleration noted in left ventricular outflow tract. Peak velocity through left ventricular outflow tract of 3.9 m/sec and peak gradient 60 mm Hg and mean gradient 24 mm Hg. No aortic valve stenosis. Mild aortic valve regurgitation. Tricuspid Valve Structurally normal tricuspid valve. No tricuspid valve stenosis. Trace to mild tricuspid valve regurgitation. Pulmonic Valve Structurally normal pulmonic valve. No pulmonary valve stenosis. Trace pulmonary valve regurgitation. Pericardium No pericardial effusion. Aorta Normal size aortic root and proximal ascending aorta. IVC Normal IVC dimension with >50% respiratory change of the inferior vena cava. CONCLUSIONS 1. Normal left ventricular size, systolic function and markedly increased wall thickness, with no regional wall motion abnormalities. Severe asymmetric left ventricular hypertrophy (IVSd=2.3 cm, PWd=1.6 cm) Left ventricular ejection fraction is estimated at 75 %. Grade II diastolic dysfunction, moderately elevated filling pressures. 2. Severely thickened mitral valve. Mild mitral valve regurgitation. Systolic anterior motion of anterior mitral valve leaflet. 3. Possibly bicuspid aortic valve. Flow acceleration noted in left ventricular outflow tract. Peak velocity through left ventricular outflow tract of 3.9 m/sec and peak gradient 60 mm Hg and mean gradient 24 mm Hg. No aortic valve stenosis. Mild aortic valve regurgitation. 4. When compared to previous study LV wall thickness and LVOT velocity seems to have increased. Samara Mathews MD (Electronically Signed) Final Date: 20 March 2023 23:00 S
== END 2023-02-20 08:28 | disposition home or self-care (01) ==
PROVIDERS: PCP Nurse Practitioner Family; Visit Provider Internal Medicine Cardiovascular Disease
DX: I42.2 Other hypertrophic cardiomyopathy (principal); R06.02 Shortness of breath; I08.0 Rheumatic disorders of both mitral and aortic valves
CPT/HCPCS: 93306

== ENCOUNTER 2023-07-25 10:41 | Outpatient (CLI) | payer MEDICAID, SELFPAY ==
--- NOTE | 2023-07-25 | US_ITS ---
WS: [id number] BILATERAL 3D TOMOSYNTHESIS DIGITAL DIAGNOSTIC MAMMOGRAPHY WITH CAD CLINICAL INFORMATION: BREAST PAIN HISTORY: LEFT breast pain. History of fibroadenomas. COMPARISON: 2021 TECHNIQUE: Bilateral CC, MLO, and ML views. FINDINGS: The breasts are composed of heterogeneous fibroglandular density, which can limit the detection of sm all underlying mass lesions. Parenchymal pattern is unchanged compared to 2022. Palpable marker LEFT breast. Prior biopsy clips LE FT breast unchanged. RIGHT breast is unchanged and unremarkable. ULTRASOUND BREAST LEFT TECHNIQUE: Ultrasound left breast focused area of concern. CLINICAL INFORMATION: BREAST PAIN COMPARISON: 06/27/2022 FINDINGS: Ultrasound LEFT breast at the 10:00 and 12:00 positions. Well-circumscribed hypoechoic nodules in the se locations compatible with fibroadenomas. The 10:00 lesion is unchanged measuring 1.1 x 1.2 x 0.7 c m 4 cm from the nipple. 12:00 lesion 3 cm from the nipple measures 1.0 x 0.8 x 0.4 cm also compatible with fibroadenoma. This is unchanged in appearance since 02/08/2021. No other suspicious findings. IMPRESSION: US/US breast LT limited* [id number] BI-RADS: 2-Benign FOLLOW UP: 1 Year Follow-up Recommend return to annual screening mammography.
--- NOTE | 2023-07-25 10:50 | MM_ITS ---
WS: [id number] BILATERAL 3D TOMOSYNTHESIS DIGITAL DIAGNOSTIC MAMMOGRAPHY WITH CAD CLINICAL INFORMATION: BREAST PAIN HISTORY: LEFT breast pain. History of fibroadenomas. COMPARISON: 2021 TECHNIQUE: Bilateral CC, MLO, and ML views. FINDINGS: The breasts are composed of heterogeneous fibroglandular density, which can limit the detection of sm all underlying mass lesions. Parenchymal pattern is unchanged compared to 2022. Palpable marker LEFT breast. Prior biopsy clips LE FT breast unchanged. RIGHT breast is unchanged and unremarkable. ULTRASOUND BREAST LEFT TECHNIQUE: Ultrasound left breast focused area of concern. CLINICAL INFORMATION: BREAST PAIN COMPARISON: 06/27/2022 FINDINGS: Ultrasound LEFT breast at the 10:00 and 12:00 positions. Well-circumscribed hypoechoic nodules in the se locations compatible with fibroadenomas. The 10:00 lesion is unchanged measuring 1.1 x 1.2 x 0.7 c m 4 cm from the nipple. 12:00 lesion 3 cm from the nipple measures 1.0 x 0.8 x 0.4 cm also compatible with fibroadenoma. This is unchanged in appearance since 02/08/2021. No other suspicious findings. IMPRESSION: MM/[place] [id number] BI-RADS: 2-Benign FOLLOW UP: 1 Year Follow-up Recommend return to annual screening mammography.
== END 2023-07-25 10:42 | disposition home or self-care (01) ==
LOC: RAD 10:41
PROVIDERS: PCP Nurse Practitioner Family; Visit Provider Family Medicine
DX: Z12.31 Encounter for screening mammogram for malignant neoplasm of breast (principal); Z80.3 Family history of malignant neoplasm of breast
CPT/HCPCS: 76642; 77062; G0279

== ENCOUNTER 2023-11-10 20:28 | Emergency (ER) | payer MEDICAID, SELFPAY ==
--- NOTE | 2023-11-10 20:31 | ECG_ITS ---
[facility] Test Date: 2023-11-10 Pat Name: Eloina Orellana Department: Room: Gender: Female Ncqa Specialist: : 1980 Requested By: Pee Rondon Order Number: [id number] Norwood MD: Jeremie Bartholomew M.D. Measurements Intervals [place] Rate: 74 P: -85 AL: 345 QRS: 167 QRSD: 113 T: 64 QT: 395 QTc: 439 Interpretive Statements SINUS RHYTHM RIGHT AXIS DEVIATION [QRS AXIS > 100] PATTERN CONSISTENT WITH PULMONARY DISEASE MODERATE INTRAVENTRICULAR CONDUCTION DELAY [110+ ms QRS DURATION] Compared to ECG 08/21/2021 08:23:49 Right-axis deviation now present Intraventricular conduction delay now present Myocardial infarct finding no longer present Electronically Signed On 11-11-2023 12:53:20 CDT by Jeremie Bartholomew M.D. [id number]
[2023-11-10 20:35] VITALS: BP 97/62; PULSE 74; RESP 17; TEMP 36.6; O2SAT 96; BMI 26.3
--- NOTE | 2023-11-10 20:40 | XRR_ITS ---
PROCEDURE INFORMATION: Exam: XR Chest Exam date and time: 11/10/2023 9:07 PM Age: 43 years old Clinical indication: Angina pectoris; Patient HX: Chest pain/jaw pain; Hypertrophic cardiomyopathy TECHNIQUE: Imaging protocol: Radiologic exam of the chest. Views: 1 view. COMPARISON: CR XR chest 1V portable [id number] 09/14/2020 7:31 PM FINDINGS: Lungs: No significant or acute findings. No consolidation. Pleural spaces: No significant costophrenic angle blunting. No pneumothorax. Heart/Mediastinum: Heart size is normal. Bones/joints: No acute osseous abnormality. XR/XR chest 1V portable [id number] IMPRESSION: No acute abnormality demonstrated.
[2023-11-10 21:01] LABS: Basophils % 0.3 %; Eosinophils # 0.1 10^3/uL (0.0-0.8); Eosinophils % 1.5 %; Hematocrit 43.2 % (36-47); Lymphocytes # 3.1 10^3/uL (0.8-4.8); Lymphocytes % 43.1 %; Mean Corpuscular HGB Conc 34.7 g/dL (30-55); Mean Corpuscular Volume 89.3 fl (85-98); Mean Platelet Volume 9.3 fL (7.4-10.4); Monocytes # 0.5 10^3/uL (0.2-0.9); Neutrophils # 3.42 10^3/uL (1.8-7.7); Nucleated Red Blood Cells % 0 %; Platelet Count 286 10^3/cmm (157-399); Red Blood Count 4.84 10^6/uL (3.85-5.65); Red Cell Distribution Width 13.1 % (12.1-15.1); White Blood Count 7.13 10^3/uL (3.29-11.43)
[2023-11-10 21:17] LABS: HCG, Serum Qual Negative (Negative)
[2023-11-10 21:18] LABS: Troponin(5th) Baseline 9 ng/L (0-10)
[2023-11-10 21:26] LABS: NT Pro B Type Natriuretic Pept 1884 pg/mL (0-125)
[2023-11-10 21:44] LABS: Alanine Aminotransferase 9 U/L (0-33); Albumin Level 4.1 g/dL (3.5-5.2); Alkaline Phosphatase 60 U/L (35-105); Anion Gap 14.9 (5-19); Aspartate Amino Transferase 14 U/L (0-32); Blood Urea Nitrogen 9 mg/dL (6-20); Calcium 9.2 mg/dL (8.5-10.5); Carbon Dioxide 23 mmol/L (22-29); Chloride 108 mmol/L (98-107); Creatinine Clr Calc Pharmacy 92.8643; Globulin 2.6 g/dL (1.3-4.6); Glomerular Filtration Rate 91.8 mL/min (90-130); Glucose 98 mg/dL (65-115); Osmolality Calculated 293 mOsm/kg (285-295); Potassium 3.9 mmol/L (3.5-5.1); Sodium 142 mmol/L (136-145); Total Bilirubin 0.3 mg/dL (0.15-1.2); Total Protein 6.7 g/dL (6.6-8.7)
[2023-11-10 21:47] VITALS: BP 121/62; PULSE 61; RESP 17; O2SAT 98
[2023-11-10 22:33] VITALS: BP 108/55; PULSE 66; RESP 18; O2SAT 97
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
== END 2023-11-10 22:35 | disposition home or self-care (01) ==
PROVIDERS: Nurse Practitioner Family; Emergency Provider Emergency Medicine; PCP Nurse Practitioner Family
DX: R07.9 Chest pain, unspecified (principal); I42.2 Other hypertrophic cardiomyopathy
CPT/HCPCS: 36415; 71045; 80053; 83880; 84484; 84703; 85025; 93005; 99285

== ENCOUNTER 2024-01-19 22:03 | Emergency (ER) | payer MEDICAID, SELFPAY ==
[2024-01-19 22:19] VITALS: BP 92/56; PULSE 66; RESP 16; TEMP 36.7; O2SAT 99
--- NOTE | 2024-01-19 22:24 | ECG_ITS ---
[facility] Test Date: 2024-01-19 Pat Name: Eloina Orellana Department: Room: Gender: Female Ldr Rn: : 1980 Requested By: Pee Rondon Order Number: [id number] Cuco MD: Jeremie Bartholomew M.D. Measurements Intervals [place] Rate: 57 P: 51 [place]: 134 QRS: 117 QRSD: 116 T: 49 QT: 418 QTc: 409 Interpretive Statements SINUS BRADYCARDIA LEFT POSTERIOR FASCICULAR BLOCK [QRS AXIS > 109, INFERIOR Q] POSSIBLE ANTERIOR MYOCARDIAL INFARCTION , OF INDETERMINATE AGE [30 ms Q WAVE IN V3/V4, OR R < 0.2 mV IN V4] Compared to ECG 11/10/2023 20:31:01 Left posterior fascicular block now present Myocardial infarct finding now present Sinus rhythm no longer present Right-axis deviation no longer present Intraventricular conduction delay no longer present Electronically Signed On 01-20-2024 7:52:45 CDT by Jeremie Bartholomew M.D. [id number]
[2024-01-20 00:06] VITALS: BP 114/48; PULSE 63; O2SAT 100
[2024-01-20 00:30] VITALS: BP 107/54; PULSE 62; O2SAT 100
--- NOTE | 2024-01-20 00:41 | CTR_ITS ---
PROCEDURE INFORMATION: Exam: CT Head Without Contrast Exam date and time: 01/20/2024 12:59 AM Age: 43 years old Clinical indication: Pain; Headache; Patient HX: C/O MORENO with hypertension TECHNIQUE: Imaging protocol: Computed tomography of the head without contrast. Radiation optimization: All CT scans at this facility use at least one of these dose optimization techniques: automated exposure control; mA and/or kV adjustment per patient size (includes targeted exams where dose is matched to clinical indication); or iterative reconstruction. COMPARISON: No relevant prior studies available. RADIATION DOSE METRICS: Total DLP (mGy-cm): 961.28 FINDINGS: Brain: Normal. No hemorrhage. Unremarkable white matter. No mass effect. Cerebral ventricles: No ventriculomegaly. Paranasal sinuses: Visualized sinuses are unremarkable. No fluid levels. Mastoid air cells: Visualized mastoid air cells are well aerated. Bones: Unremarkable. No acute fracture. Soft tissues: Unremarkable. CT/CT head wo con* [id number] IMPRESSION: No acute intracranial abnormality.
--- NOTE | 2024-01-20 01:21 | W.ED.HA ---
HPI - Headache General: Chief Complaint: Headache Stated Complaint: Dizzy\Weak\N\Headache Time Seen by Provider: 01/20/24 00:10 History of Present Illness: 43-year-old female complaining of several days of headache, throbbing frontal in nature, with associated generalized weakness, chest discomfort at times, and dizziness. She does not normally get headaches. She has a history of hypertrophic cardiomyopathy, and called her gallery or museum attendant in [place]'s office earlier in the evening and was told to come to the emergency department. She went to an outside facility emergency department last night, and was given medication for headache which seem to help transiently. Evidently her blood work was normal at that facility at that time. [facility] ED PFSH: Medical History NSVT (nonsustained ventricular tachycardia) Mitral valve regurgitation Aortic valve regurgitation Surgical History S/P partial hysterectomy History of hernia repair Hx of section Family History Brother Hypertension Grandmother Hypertension Maternal Diabetes Maternal Mother Hypertension Stroke Diabetes Breast cancer Grandfather Cancer Maternal--unsure if liver or lung Father Cirrhosis of liver Social History Smoking and tobacco/nicotine status: current every day tobacco/nicotine user Alcohol intake: current Alcohol intake frequency: 3 or more drinks per day Substance/Drug Use: current 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 Marital status: Physical Exam Const: COMMON NORMALS: no acute distress GENERAL APPEARANCE: cooperative and ill appearing (Mildly); not frail appearing HENMT: COMMON NORMALS: normocephalic, atraumatic and Normal external nose present HEAD & SCALP: normocephalic and atraumatic FACE & SINUS: normal facial exam and face symmetric NOSE: Normal external nose present Eye: COMMON NORMALS: Equal, round and reactive pupils present and EOMs intact bilaterally PUPIL: Yes Equal, round and reactive pupils present Neck/C-Spine: GENERAL: Yes trachea midline Chest: CHEST: Yes Symmetrical chest wall rise Resp: COMMON NORMALS: normal respiratory effort, No retractions, No use of accessory muscles and clear to auscultation bilaterally AUSCULTATION: clear to auscultation bilaterally Cardio: COMMON NORMALS: regular rate and regular rhythm RATE: regular rate RHYTHM: regular rhythm GI: COMMON NORMALS: Normal to inspection, nondistended, normoactive bowel sounds present Extremity: COMMON NORMALS: no pedal edema Neuro: KALE COMA SCALE: document GCS findings Kale coma scale eye opening: Spontaneous [place] coma scale verbal response: Orientated [place] coma scale motor response: Obey commands Kale coma scale total score: 15 SENSORY EXAM: Yes extremities (intact) Psych: COMMON NORMALS: speech normal SPEECH: Yes normal speech Skin: COMMON NORMALS: no rashes or lesions noted GENERAL SKIN EXAM: no rashes or lesions noted Course Vital Signs: Vital signs: Vital Signs Temperature 98.1 F 01/19/24 22:19 Pulse Rate 50 L 01/20/24 02:30 Respiratory Rate 16 01/19/24 22:19 Blood Pressure 120/53 01/20/24 02:30 Pulse Oximetry 100 01/20/24 02:30 Oxygen Delivery Me thod Room Air 01/20/24 01:30 MDM - Headache Medical Decision Making Head CT shows no acute abnormality. She is mildly hypotensive, but relates that this is not abnormal for her. Her vital signs are otherwise stable. Laboratories pending. She is given Toradol and Reglan for her head. Pain is down to 1-2. She is feeling much improved after fluid. Hemoglobin is 14, white count is 7. BNP is mildly elevated as is her baseline. Her head CT is negative. Urinalysis is negative. EKG shows no acute ST wave changes. She will be allowed discharge. Lab Data 01/20/24 01:26 01/20/24 01:[address] 01/20/24 00:41 IMPRESSION: No acute intracranial abnormality. Laboratory Results WBC 7.02 10^3/uL (3.29-11.43) 01/20/24 01:26 RBC 4.55 10^6/uL (3.85-5.65) 01/20/24 01:26 Hgb 14.10 g/dL (11.27-16.99) 01/20/24 01:26 Hct 41.1 % (36-47) 01/20/24: MCV 90.3 fl (85-98) 07/29/24 01:26 MCH 31.0 pg (27-33) 01/20/24 01: MCHC 34.3 g/dL (30-55) 01/20/24 01:26 RDW 12.9 % (12.1-15.1) 01/20/24 01:26 Plt Count 216 10^3/cmm (157-399) 01/20/24 01:26 MPV 9.9 fL (7.4-10.4) 01/20/24 01:26 Neut % (Auto) 52.2 % 01/20/24 01:26 Lymph % (Auto) 39.7 % 01/20/24 01:26 [place] % (Auto) 6.1 % 01/20/24 01: Eos % (Auto) 1.6 % 01/20/24 01:26 Baso % (Auto) 0.3 % 01/20/24 01:26 Neut # (Auto) 3.66 10^3/uL (1.8-7.7) 01/20/24 01:26 Lymph # (Auto) 2.8 10^3/uL (0.8-4.8) 01/20/24 01:26 [place] # (Auto) 0.4 10^3/uL (0.2-0.9) 01/20/24 01:26 Eos # (Auto) 0.1 10^3/uL (0.0-0.8) 01/20/24 01:26 Baso # (Auto) 0.0 10^3/uL (0.0-0.1) 01/20/24 01:26 Nucleated RBC % (auto) 0 % 01/20/24 01:26 Nucleated RBCs # 0.0 /100WBC 01/20/24 01:26 Sodium 143 mmol/L (136-145) 01/20/24 01:26 Potassium 3.9 mmol/L (3.5-5.1) 01/20/24 01:26 Chloride 111 mmol/L (98-107) H 01/20/24 01:26 Carbon Dioxide 21 mmol/L (22-29) L 01/20/24 01:26 Anion Gap 14.9 (5-19) 01/20/24 01:26 BUN 13 mg/dL (6-20) 01/20/24 01:26 Creatinine 0.7 mg/dL (0.5-0.9) 01/20/24 01:26 GFR Calculation 91.8 mL/min (90-130) 01/20/24 01:26 Glucose 101 mg/dL (65-115) 01/20/24 01:26 Calculated Osmolality 296 mOsm/kg (285-295) H 01/20/24 01:26 Calcium 8.9 mg/dL (8.5-10.5) 01/20/24 01:26 Magnesium 1.8 mg/dL (1.7-2.3) 01/20/24 01:26 Total Bilirubin 0.2 mg/dL (0.15-1.2) 01/20/24 01:26 AST 14 U/L (0-32) 01/20/24 01:26 ALT 9 U/L (0-33) 01/20/24 01:26 Alkaline Phosphatase 49 U/L (35-105) 01/20/24 01:26 NT-Pro-B Natriuret Pep 1139 pg/mL (0-125) H 01/20/24 01:26 Total Protein 6.2 g/dL (6.6-8.7) L 01/20/24 01:26 Albumin 3.7 g/dL (3.5-5.2) 01/20/24 01:26 Globulin 2.5 g/dL (1.3-4.6) 01/20/24 01:26 Urine Color Yellow (Yellow) 01/20/24 01:47 Urine Appearance Clear (CLEAR) 01/20/24 01:47 Urine pH 5 (5-7) 01/20/24 01:47 Ur Specific [place] 1.020 (1.005-1.030) 01/20/24 01:47 Urine Protein Neg (Negative) 01/20/24 01:47 Urine Glucose (UA) Norm (Normal) 01/20/24 01:47 Urine Ketones Negative (Negative) 01/20/24 01:47 Urine Blood Neg (Negative) 01/20/24 01:47 Urine Nitrate Negative (Negative) 01/20/24 01:47 Urine Bilirubin Neg (Negative) 01/20/24 01:47 Urine Urobilinogen Neg mg/dL (Negative) 01/20/24 01:47 Ur Leukocyte Esterase Negative (Negative) 01/20/24 01:47 SARS-CoV-2 Ag (Rapid) negative (Negative) 01/20/24 01:47 All radiology interpretation(s) finalized by discharge Discharge Plan Discharge Patient Disposition: Home Clinical Impression: Headache, Dizziness Condition: Stable Prescriptions: No Action atenolol 50 mg tablet 50 mg PO DAILY Discharge Orders: Discharge ED (Routine); Ordered 01/20/24 Ordered By: Pee Rutherford Referrals: Sierra Law FNP [Primary Care Provider] - 1-3 days Patient Instructions: Acute Headache (ED), Dizziness (ED), Opioid Safety, Pain Management Activity Restrictions/Additional Instructions: Your lab work was not remarkable this morning. Your head CAT scan showed normal brain. Drink plenty of liquids the next 48 hours. Return for fever, shortness of breath, return of chest pain, vision changes, mental status changes, significant weakness, other concerning symptoms. See your doctor this week. 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
[2024-01-20 01:30] VITALS: BP 104/45; PULSE 62; O2SAT 100
[2024-01-20 01:32] LABS: Basophils % 0.3 %; Eosinophils # 0.1 10^3/uL (0.0-0.8); Eosinophils % 1.6 %; Hematocrit 41.1 % (36-47); Lymphocytes # 2.8 10^3/uL (0.8-4.8); Lymphocytes % 39.7 %; Mean Corpuscular HGB Conc 34.3 g/dL (30-55); Mean Corpuscular Volume 90.3 fl (85-98); Mean Platelet Volume 9.9 fL (7.4-10.4); Monocytes # 0.4 10^3/uL (0.2-0.9); Monocytes % 6.1 %; Neutrophils # 3.66 10^3/uL (1.8-7.7); Neutrophils % 52.2 %; Nucleated Red Blood Cells % 0 %; Platelet Count 216 10^3/cmm (157-399); Red Blood Count 4.55 10^6/uL (3.85-5.65); Red Cell Distribution Width 12.9 % (12.1-15.1); White Blood Count 7.02 10^3/uL (3.29-11.43)
[2024-01-20] MEDS: metoclopramide 5 mg/mL SDV 2 mL 10 MG IVP (01:34)
[2024-01-20] MEDS: sodium chloride 0.9% 1,000 ML 999 ML IV (01:34)
[2024-01-20] MEDS: ketorolac 30 mg/mL INJ IVP (01:34)
[2024-01-20 02:00] VITALS: BP 97/49; PULSE 62; O2SAT 99
[2024-01-20 02:03] LABS: Alanine Aminotransferase 9 U/L (0-33); Albumin Level 3.7 g/dL (3.5-5.2); Alkaline Phosphatase 49 U/L (35-105); Blood Urea Nitrogen 13 mg/dL (6-20); Calcium 8.9 mg/dL (8.5-10.5); Carbon Dioxide 21 mmol/L (22-29); Chloride 111 mmol/L (98-107); Creatinine Clr Calc Pharmacy 94.0642; Globulin 2.5 g/dL (1.3-4.6); Glomerular Filtration Rate 91.8 mL/min (90-130); Glucose 101 mg/dL (65-115); Magnesium 1.8 mg/dL (1.7-2.3); NT Pro B Type Natriuretic Pept 1139 pg/mL (0-125); Osmolality Calculated 296 mOsm/kg (285-295); Sodium 143 mmol/L (136-145); Total Bilirubin 0.2 mg/dL (0.15-1.2); Total Protein 6.2 g/dL (6.6-8.7)
[2024-01-20 02:06] LABS: Add Urine Microscopic? NO; Charge for UA Resulting for Rev
[2024-01-20 02:08] LABS: Anion Gap 14.9 (5-19); Aspartate Amino Transferase 14 U/L (0-32); Potassium 3.9 mmol/L (3.5-5.1)
[2024-01-20 02:25] LABS: Bilirubin Urine Neg (Negative); Blood Urine Neg (Negative); Glucose Urine UA Norm (Normal); Ketones Urine Negative (Negative); Leukocyte Esterase Urine Negative (Negative); Nitrate Urine Negative (Negative); Protein Urine Neg (Negative); Urine Appearance Clear (CLEAR); Urine Color Yellow (Yellow); Urobilinogen Urine Neg (Negative); pH Urine 5 (5-7)
[2024-01-20 02:30] VITALS: BP 120/53; PULSE 50; O2SAT 100
[2024-01-20 02:36] LABS: SARS Covid-2 Antigen negative (Negative)
== END 2024-01-20 03:12 | disposition home or self-care (01) ==
PROVIDERS: Emergency Provider Emergency Medicine; PCP Nurse Practitioner Family
DX: R51.9 Headache, unspecified (principal); R42 Dizziness and giddiness; Z11.52 Encounter for screening for COVID-19; Z72.0 Tobacco use
CPT/HCPCS: 70450; 80053; 81003; 83735; 83880; 85025; 87426; 93005; 96374; 96375; 99285; J1885; J2765; J7030

== ENCOUNTER 2024-02-14 20:37 | Emergency (ER) | payer MEDICAID, SELFPAY ==
--- NOTE | 2024-02-14 20:38 | XRR_ITS ---
PROCEDURE INFORMATION: Exam: XR Chest Exam date and time: 02/14/2024 8:55 PM Age: 43 years old Clinical indication: Chest pressure; Patient HX: Chest pain; Hypertrophic cardiomyopathy; Additional info: Chest chest pain; Hypertrophic cardiomyopathy TECHNIQUE: Imaging protocol: Radiologic exam of the chest. Views: 1 view. COMPARISON: CR XR chest 1V portable [id number] 11/10/2023 9:07 PM FINDINGS: Lungs: Unremarkable. No consolidation. Pleural spaces: Unremarkable. No pleural effusion. No pneumothorax. Heart/Mediastinum: Unremarkable. No cardiomegaly. Bones/joints: Unremarkable. XR/XR chest 1V portable [id number] IMPRESSION: No acute findings.
--- NOTE | 2024-02-14 20:38 | ECG_ITS ---
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 Measurements Intervals [place] Rate: 81 P: 60 AL: 186 QRS: 83 QRSD: 123 T: 45 QT: 386 QTc: 449 Interpretive Statements SINUS RHYTHM POSSIBLE LEFT ATRIAL ENLARGEMENT [-0.1mV P-WAVE IN V1/V2] MODERATE INTRAVENTRICULAR CONDUCTION DELAY [110+ ms QRS DURATION] Compared to ECG 01/19/2024 22:23:03 Intraventricular conduction delay now present Sinus bradycardia no longer present Left posterior fascicular block no longer present Myocardial infarct finding no longer present Electronically Signed On 02-14-2024 22:13:31 CDT by Jeremie Bartholomew M.D. [id number]
[2024-02-14 20:40] VITALS: BP 127/52; PULSE 81; RESP 16; TEMP 37.1; O2SAT 96; BMI 24.7
--- NOTE | 2024-02-14 20:45 | W.ED.CHESTPA ---
HPI - Chest Pain General: Chief Complaint: Chest Pain Stated Complaint: CP Time Seen by Provider: 02/14/24 20:45 History of Present Illness: Presents to the ER today by EMS with complaints of sudden onset chest pain. Chest pain started about 730 was substernal radiated pain into both arms. Patient stated her heart rate was 140 beats a minute with the maximum this was occurring. She states the business info consultant does not like her heart rate to be above 60 and also wants her blood pressure to be on the lower side due to her hypertrophic cardiomyopathy. There was no nausea vomiting diaphoresis or shortness of breath. She called EMS. By the time EMS arrived there the pain was resolving and by the time she arrived to the ER the pain had totally resolved. Patient is on a new medicine for her hypertrophic cardiomyopathy that she just darted today. She is only taken 1 dose. She sees a doctor up in [place] for her hypertrophic cardiomyopathy, she also sees Dr. Hutson. Related Data Home Medications Medication Instructions Recorded Confirmed atenolol 50 mg tablet 50 mg PO DAILY 07/30/23 01/06/24 Allergies Allergy/AdvReac Type Severity Reaction Status Date / Time morphine Allergy ALGY-Hives Verified 01/19/24 22:24 Review of Systems General: Reports: 10 or more systems reviewed and unremarkable except in HPI and below PFSH ED PFSH: Medical History NSVT (nonsustained ventricular tachycardia) Mitral valve regurgitation Aortic valve regurgitation Surgical History S/P partial hysterectomy History of hernia repair Hx of section Family History Brother Hypertension Grandmother Hypertension Maternal Diabetes Maternal Mother Hypertension Stroke Diabetes Breast cancer Grandfather Cancer Maternal--unsure if liver or lung Father Cirrhosis of liver Social History Smoking and tobacco/nicotine status: current every day tobacco/nicotine user Alcohol intake: current Alcohol intake frequency: 3 or more drinks per day Substance/Drug Use: current 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 Marital status: Physical Exam Const: COMMON NORMALS: no acute distress, average body habitus, patient oriented x3, no limitations, healthy appearing, alert and well nourished HENMT: COMMON NORMALS: normocephalic, atraumatic, hearing grossly normal bilaterally, external ears normal, Normal external nose present and moist oral mucous membranes HEAD & SCALP: normocephalic and atraumatic NOSE: Normal external nose present EXTERNAL EAR: Yes external ears normal Neck/C-Spine: COMMON NORMALS: no JVD Chest: COMMONS NORMALS: normal inspection of the chest and normal palpation of entire chest wall Resp: COMMON NORMALS: normal respiratory effort, No retractions, No use of accessory muscles and clear to auscultation bilaterally AUSCULTATION: clear to auscultation bilaterally Cardio: COMMON NORMALS: no JVD, regular rate, regular rhythm, S1 normal heart sound present, S2 normal heart sound present, No gallops present (Cardio), No clicks present (Cardio), No murmurs present (Cardio) and No rub (Cardio) RATE: regular rate RHYTHM: regular rhythm HEART SOUNDS: S1 normal heart sound present and S2 normal heart sound present GI: COMMON NORMALS: Normal to inspection, nondistended, normoactive bowel sounds present, Soft to palpation, non-tender, No hepatosplenomegaly present and no masses PALPATION: Yes Soft to palpation and Yes No hepatosplenomegaly present Neuro: COMMON NORMALS: patient oriented x3 SENSORIUM/ORIENTATION: Yes alert Course Vital Signs: Vital signs: Vital Signs Temperature 98.8 F 02/14/24 20:40 Pulse Rate 66 02/14/24 23:23 Respiratory Rate 16 02/14/24 21:13 Blood Pressure 111/61 02/14/24 23:23 Pulse Oximetry 96 02/14/24 23:23 Oxygen Delivery Me thod Room Air 02/14/24 23:23 MDM - Chest Pain Medical Decision Making Patient was worked up in a standard chest pain fashion with serial lab work serial EKGs serial enzymes and chest x-ray, serial EKGs negative for ST changes, initial troponin was seven 2-hour troponin was 11.3 for delta of 4.3. Patient was pain-free during her time here. Patient be discharged home. Differential Diagnosis Unlikely acute massive pulmonary embolism, acute respiratory failure, acute myocardial infarction, cardiac arrest or sudden cardiac Medical Records I reviewed the patient's medical records. Lab Data I reviewed the patient's lab results. 02/14/24 20:57 02/14/24 20:57 Radiology Impressions Chest X-Ray 02/14/24 20:38 IMPRESSION: No acute findings. Laboratory Results WBC 6.46 10^3/uL (3.29-11.43) 02/14/24 20:57 RBC 4.73 10^6/uL (3.85-5.65) 02/14/24 20:57 Hgb 14.60 g/dL (11.27-16.99) 02/14/24 20:57 Hct 42.8 % (36-47) 02/14/24 20:57 MCV 90.5 fl (85-98) 02/14/24 20:57 MCH 30.9 pg (27-33) 02/14/24 20:57 MCHC 34.1 g/dL (30-55) 02/14/24 20:57 RDW 12.5 % (12.1-15.1) 02/14/24 20:57 Plt Count 240 10^3/cmm (157-399) 02/14/24 20:57 MPV 9.7 fL (7.4-10.4) 02/14/24 20:57 Neut % (Auto) 91.9 % 02/14/24 20:57 Lymph % (Auto) 7.4 % 02/14/24 20:57 [place] % (Auto) 0.3 % 02/14/24 20:57 Eos % (Auto) 0.0 % 02/14/24 20:57 Baso % (Auto) 0.2 % 02/14/24 20:57 Neut # (Auto) 5.94 10^3/uL (1.8-7.7) 02/14/24 20:57 Lymph # (Auto) 0.5 10^3/uL (0.8-4.8) L 02/14/24 20:57 [place] # (Auto) 0.0 10^3/uL (0.2-0.9) L 02/14/24 20:57 Eos # (Auto) 0.0 10^3/uL (0.0-0.8) 02/14/24 20:57 Baso # (Auto) 0.0 10^3/uL (0.0-0.1) 02/14/24 20:57 Nucleated RBC % (auto) 0 % 02/14/24 20:57 Nucleated RBCs # 0.0 /100WBC 02/14/24 20:57 Sodium 139 mmol/L (136-145) 02/14/24 20:57 Potassium 3.9 mmol/L (3.5-5.1) 02/14/24 20:57 Chloride 106 mmol/L (98-107) 02/14/24 20:57 Carbon Dioxide 17 mmol/L (22-29) L 02/14/24 20:57 Anion Gap 19.9 (5-19) H 02/14/24 20:57 BUN 16 mg/dL (6-20) 02/14/24 20:57 Creatinine 0.7 mg/dL (0.5-0.9) 02/14/24 20:57 GFR Calculation 91.8 mL/min (90-130) 02/14/24 20:57 Glucose 220 mg/dL (65-115) H 02/14/24 20:57 Calculated Osmolality 296 mOsm/kg (285-295) H 02/14/24 20:57 Calcium 9.0 mg/dL (8.5-10.5) 02/14/24 20:57 Total Bilirubin 0.2 mg/dL (0.15-1.2) 02/14/24 20:57 AST 14 U/L (0-32) 02/14/24 20:57 ALT 9 U/L (0-33) 02/14/24 20:57 Alkaline Phosphatase 55 U/L (35-105) 02/14/24 20:57 Troponin T Baseline 7 ng/L (0-10) 02/14/24 20:57 Troponin T 120 Minute 11.30 ng/L (0-10) H 02/14/24 22:50 Delta Troponin T 4.30 ABS# (0-10) 02/14/24 22:50 Total Protein 6.3 g/dL (6.6-8.7) L 02/14/24 20:57 Albumin 4.1 g/dL (3.5-5.2) 02/14/24 20:57 Globulin 2.2 g/dL (1.3-4.6) 02/14/24 20:57 Urine Color Yellow (Yellow) 02/14/24 21:15 Urine Appearance Clear (CLEAR) 02/14/24 21:15 Urine pH 6.0 (5-7) 02/14/24 21:15 Ur Specific [place] 1.013 (1.005-1.030) 02/14/24 21:15 Urine Protein Negative (Negative) 02/14/24 21:15 Urine Glucose (UA) 2+ (Normal) H 02/14/24 21:15 Urine Ketones Negative (Negative) 02/14/24 21:15 Urine Blood Trace (Negative) A 02/14/24 21:15 Urine Nitrate Negative (Negative) 02/14/24 21:15 Urine Bilirubin Negative (Negative) 02/14/24 21:15 Urine Urobilinogen 0.2 mg/dL (Negative) 02/14/24 21:15 Ur Leukocyte Esterase Negative (Negative) 02/14/24 21:15 Urine RBC 0-2 /hpf (0-2) 02/14/24 21:15 Urine WBC 0-5 /hpf (0-5) 02/14/24 21:15 Ur Squamous Epith Cells 6-10 /hpf (0-5) 02/14/24 21:15 Amorphous Sediment Not Reportable 02/14/24 21:15 Urine Bacteria None seen /hpf (NONE) 02/14/24 21:15 Hyaline Casts 2.46 /lpf 02/14/24 21:15 All radiology interpretation(s) finalized by discharge Discharge Plan Discharge Patient Disposition: Home Clinical Impression: Chest pain Qualifiers: Chest pain type: unspecified Qualified Code(s): R07.9 - Chest pain, unspecified Condition: Stable Prescriptions: No Action atenolol 50 mg tablet 50 mg PO DAILY Discharge Orders: Discharge ED (Routine); Ordered 02/14/24 Ordered By: Gelacio Cazares Referrals: Sierra Law FNP [Primary Care Provider] - 1 week Patient Instructions: Chest Pain (DC) Activity Restrictions/Additional Instructions: Your evaluation ER did not show any acute cardiac cause of your chest pain. Your chest pain is felt to be noncardiac in nature. Your cardiac enzymes were normal as well as your EKGs. Please follow-up with your family practice physician and/or business info consultant within next 7 to 10 days for further evaluation and treatment. Thank you for choosing [facility] for your healthcare needs today. Please realize that you were seen in the emergency department and that we are providing you with an emergency medical screening exam and this may not be a complete and all exclusive of all testing and/or medical workup we may need to determine your element or severity of your illness. It is very important that you follow-up as instructed with your primary care provider or specialist for the additional evaluation and to discuss your medical treatment plan. You may return to the emergency department should you have concerns or if your condition changes or worsens in any way. Coding Level of Care Code ED Retail Maintenance Technician for Camilla Brown
[2024-02-14 20:53] VITALS: BP 127/52; PULSE 81; RESP 16; O2SAT 96
[2024-02-14 21:00] LABS: Basophils % 0.2 %; Hematocrit 42.8 % (36-47); Lymphocytes # 0.5 10^3/uL (0.8-4.8); Lymphocytes % 7.4 %; Mean Corpuscular HGB Conc 34.1 g/dL (30-55); Mean Corpuscular Hemoglobin 30.9 pg (27-33); Mean Corpuscular Volume 90.5 fl (85-98); Mean Platelet Volume 9.7 fL (7.4-10.4); Monocytes % 0.3 %; Neutrophils # 5.94 10^3/uL (1.8-7.7); Neutrophils % 91.9 %; Nucleated Red Blood Cells % 0 %; Platelet Count 240 10^3/cmm (157-399); Red Blood Count 4.73 10^6/uL (3.85-5.65); Red Cell Distribution Width 12.5 % (12.1-15.1); White Blood Count 6.46 10^3/uL (3.29-11.43)
[2024-02-14] MEDS: ondansetron 2 mg/ML SDV 2 mL 4 MG IVP (21:09)
[2024-02-14 21:13] VITALS: BP 127/52; PULSE 97; RESP 16; O2SAT 97
[2024-02-14 21:19] LABS: Troponin(5th) Baseline 7 ng/L (0-10)
[2024-02-14 21:20] LABS: Charge for UA Resulting for Rev
[2024-02-14 21:22] LABS: Alanine Aminotransferase 9 U/L (0-33); Albumin Level 4.1 g/dL (3.5-5.2); Alkaline Phosphatase 55 U/L (35-105); Anion Gap 19.9 (5-19); Aspartate Amino Transferase 14 U/L (0-32); Blood Urea Nitrogen 16 mg/dL (6-20); Carbon Dioxide 17 mmol/L (22-29); Chloride 106 mmol/L (98-107); Creatinine Clr Calc Pharmacy 90.1656; Globulin 2.2 g/dL (1.3-4.6); Glomerular Filtration Rate 91.8 mL/min (90-130); Glucose 220 mg/dL (65-115); Osmolality Calculated 296 mOsm/kg (285-295); Potassium 3.9 mmol/L (3.5-5.1); Sodium 139 mmol/L (136-145); Total Bilirubin 0.2 mg/dL (0.15-1.2); Total Protein 6.3 g/dL (6.6-8.7)
[2024-02-14 21:24] VITALS: BP 127/57; PULSE 83; O2SAT 96
[2024-02-14 21:31] LABS: Bilirubin Urine Negative (Negative); Blood Urine Trace (Negative); Glucose Urine UA 2+ (Normal); Ketones Urine Negative (Negative); Leukocyte Esterase Urine Negative (Negative); Nitrate Urine Negative (Negative); Protein Urine Negative (Negative); Specific Gravity, Urine 1.013 (1.005-1.030); Urine Appearance Clear (CLEAR); Urine Color Yellow (Yellow); Urobilinogen Urine 0.2 mg/dL (Negative)
[2024-02-14 21:33] VITALS: BP 126/66; PULSE 77; O2SAT 96
[2024-02-14 21:36] LABS: Bacteria Urine None Seen /hpf; Hyaline Casts Urine 2.46 /lpf; RBC Urine 0-2 /hpf (0-2); WBC Urine 0-5 /hpf (0-5)
--- NOTE | 2024-02-14 22:36 | ECG_ITS ---
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 Measurements Intervals [place] Rate: 67 P: 63 [place]: 188 QRS: 76 QRSD: 118 T: 52 QT: 419 QTc: 445 Interpretive Statements SINUS RHYTHM POSSIBLE LEFT ATRIAL ENLARGEMENT [-0.1mV P-WAVE IN V1/V2] MODERATE INTRAVENTRICULAR CONDUCTION DELAY [110+ ms QRS DURATION] Compared to ECG 02/14/2024 20:43:18 No significant changes Electronically Signed On 02-15-2024 18:50:13 CDT by Walter Hennessy M.D. [id number]
[2024-02-14 23:23] VITALS: BP 111/61; PULSE 66; O2SAT 96
[2024-02-15 00:18] VITALS: BP 111/61; PULSE 65; RESP 16; O2SAT 95
[2024-02-15 00:21] LABS: Ketone (Acetest) Serum Negative (Negative)
[2024-02-15 00:28] LABS: Magnesium 1.6 mg/dL (1.7-2.3); Phosphorus 1.6 mg/dL (2.5-4.5)
== END 2024-02-15 00:02 | disposition home or self-care (01) ==
PROVIDERS: Emergency Provider Emergency Medicine; PCP Nurse Practitioner Family
DX: R07.9 Chest pain, unspecified (principal); Z72.0 Tobacco use
CPT/HCPCS: 36415; 71045; 80053; 81003; 81015; 82009; 83735; 84100; 84484; 85025; 93005; 96374; 99285; J2405

== ENCOUNTER 2024-08-17 09:38 | Outpatient (CLI) | payer MEDICAID, SELFPAY ==
--- NOTE | 2024-08-17 09:49 | MM_ITS ---
WS: [id number] BILATERAL SCREENING DIGITAL TOMOSYNTHESIS MAMMOGRAM WITH CAD HISTORY: SCREENING COMPARISON: 07/25/2023, 06/19/2022, 12/08/2020, 08/30/2021, ultrasound 07/25/2023 and 06/27/2022 Bilateral CC and MLO views with tomosynthesis and synthetic mammography submitted. Computer aided detection analyzed. Breast composition: The breasts are heterogeneously dense, which may obscure small masses. No suspicious masses, microcalcifications or architectural distortion. Patient has known fibroadenoma scattered throughout the LEFT breast. None of these masses have increased in size and no new mass identified. Biopsy clips are noted noted within the LEFT breast also. RIGHT breast is negative. MM/MM scr BI tomosynthesis [id number] IMPRESSION: BI-RADS: 2 - Benign FOLLOW UP: 1 Year Follow-up
== END 2024-08-17 09:39 | disposition home or self-care (01) ==
LOC: RAD 09:44
PROVIDERS: PCP Nurse Practitioner Family; Visit Provider Nurse Practitioner Family
DX: Z12.31 Encounter for screening mammogram for malignant neoplasm of breast (principal); R92.333 Mammographic heterogeneous density, bilateral breasts; D24.2 Benign neoplasm of left breast
CPT/HCPCS: 77063; 77067

== ENCOUNTER 2024-08-18 16:15 | Observation (INO) | payer MEDICAID, SELFPAY ==
--- NOTE | 2024-08-18 16:17 | ECG_ITS ---
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1980 Requested By: Magali Barnard Order Number: [id number] Cuco MD: CLAUDIA LOPEZ Measurements Intervals [place] Rate: 67 P: 71 [place]: 200 QRS: 88 QRSD: 104 T: 65 QT: 417 QTc: 440 Interpretive Statements SINUS RHYTHM POSSIBLE ANTERIOR MYOCARDIAL INFARCTION , OF INDETERMINATE AGE [30 ms Q WAVE IN V3/V4, OR R < 0.2 mV IN V4] Compared to ECG 02/14/2024 22:36:56 Myocardial infarct finding now present Intraventricular conduction delay no longer present Electronically Signed On 08-18-2024 23:32:52 STRING LASTER by CLAUDIA LOPEZ [id number] [id number]
[2024-08-18 16:20] VITALS: BP 108/60; PULSE 68; RESP 16; TEMP 36.9; O2SAT 96; BMI 26.9
--- NOTE | 2024-08-18 16:21 | XRR_ITS ---
PROCEDURE INFORMATION: Exam: XR Chest Exam date and time: 08/18/2024 4:24 PM Age: 44 years old Clinical indication: Pain; Angina pectoris; Additional info: Cp TECHNIQUE: Imaging protocol: Radiologic exam of the chest. Views: 1 view. COMPARISON: CR XR chest 1V portable [id number] 02/14/2024 8:55 PM FINDINGS: Lungs: Unremarkable. No consolidation. Pleural spaces: Unremarkable. No pleural effusion. No pneumothorax. Heart/Mediastinum: Unremarkable. No cardiomegaly. Bones/joints: Unremarkable. XR/XR chest 1V portable [id number] IMPRESSION: No acute findings.
--- NOTE | 2024-08-18 16:30 | W.ED.CHESTPA ---
HPI - Chest Pain General: Chief Complaint: Chest Pain Stated Complaint: Stemi Alert Time Seen by Provider: 08/18/24 16:21 Source: patient and EMS Mode of arrival: EMS Limitations: no limitations History of Present Illness: 44-year-old female who states that she has a history of hypertrophic cardiomyopathy states she started having chest pain roughly 2 to 3 hours ago states is a pressure pain center of her chest rating down her arms states that she gets pain but does not typically last this long is a severe patient received nitro and aspirin and route pain has resolved STEMI was alerted by EMS looking at their EKG and comparing to her previous she has no acute changes compared to old EKGs with no signs of STEMI she denies any shortness of breath currently Associated symptoms: Reports dyspnea; Deny abdominal pain, fever(s), nausea or vomiting Related Data Home Medications ?Medication ?Instructions ?Recorded ?Confirmed atenolol 50 mg tablet 50 mg PO DAILY 07/30/23 08/18/24 naproxen 500 mg tablet 500 mg PO BID PRN Pain 07/17/24 08/18/24 baclofen 10 mg tablet 10 mg PO BID 08/18/24 08/18/24 cyclobenzaprine 10 mg tablet 10 mg PO TID 08/18/24 08/18/24 epinephrine 0.3 mg/0.3 mL 0.3 mg IM PRN PRN Allergic Reaction 08/18/24 08/18/24 injection, auto-injector Allergies Allergy/AdvReac Type Severity Reaction Status Date / Time morphine Allergy ALGY-Hives Verified 07/17/24 09:53 Review of Systems Const: Denies: fever(s), chills, body aches or change in appetite ENMT: Denies: throat pain or dental pain Card: Reports: chest pain Resp: Reports: dyspnea GI: Denies: abdominal pain, nausea, vomiting or diarrhea Musc: Denies: neck pain or back pain Skin/Breast: Denies: rash Neuro: Denies: headache(s) PFSH ED PFSH: Medical History NSVT (nonsustained ventricular tachycardia) Mitral valve regurgitation Aortic valve regurgitation Surgical History S/P partial hysterectomy History of hernia repair Hx of section Family History Brother Hypertension Grandmother Hypertension Maternal Diabetes Maternal Mother Hypertension Stroke Diabetes Breast cancer Grandfather Cancer Maternal--unsure if liver or lung Father Cirrhosis of liver Social History Smoking and tobacco/nicotine status: current every day tobacco/nicotine user (0.5 ppd) Alcohol intake: current Alcohol intake frequency: 3 or more drinks per day Substance/Drug Use: current 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 Marital status: Physical Exam Const: COMMON NORMALS: no acute distress, patient oriented x3 and healthy appearing HENMT: COMMON NORMALS: normocephalic and atraumatic HEAD & SCALP: normocephalic and atraumatic Neck/C-Spine: COMMON NORMALS: full ROM and supple Chest: COMMONS NORMALS: normal inspection of the chest Resp: COMMON NORMALS: normal respiratory effort, No retractions, No use of accessory muscles and clear to auscultation bilaterally AUSCULTATION: clear to auscultation bilaterally Cardio: COMMON NORMALS: regular rate, regular rhythm and No murmurs present (Cardio) RATE: regular rate RHYTHM: regular rhythm Extremity: COMMON NORMALS: normal to inspection and full ROM Neuro: COMMON NORMALS: patient oriented x3, moves all extremities and no focal motor deficits Psych: COMMON NORMALS: mental status grossly normal, Normal thought process present and cooperative THOUGHT PROCESS: Normal thought process present Skin: COMMON NORMALS: no rashes or lesions noted and no wounds GENERAL SKIN EXAM: no rashes or lesions noted Course Vital Signs: Vital signs: Vital Signs Temperature 98.4 F 08/18/24 16:20 Pulse Rate 63 08/18/24 19:12 Respiratory Rate 11 L 08/18/24 19:12 Blood Pressure 102/66 08/18/24 19:12 Pulse Oximetry 97 08/18/24 19:12 Oxygen Delivery Me thod Room Air 08/18/24 19:12 MDM - Chest Pain Medical Decision Making Patient presents here with chest pain troponins EKG are normal patient was seen in the ER by 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 She has been stable on the ER with pain resolved Medical Records I reviewed the patient's medical records. Lab Data I reviewed the patient's lab results. 08/18/24 16:25 08/18/24 17:19 Radiology Impressions Chest X-Ray 08/18/24 16:21 IMPRESSION: No acute findings. Laboratory Results WBC 9.98 10^3/uL (3.29-11.43) 08/18/24 16: RBC 4.22 10^6/uL (3.85-5.65) 08/18/24 16:25 Hgb 12.80 g/dL (11.27-16.99) 08/18/24 16: Hct 38.4 % (36-47) 08/18/24 16: MCV 91.0 fl (85-98) 08/18/24 16: MCH 30.3 pg (27-33) 08/18/24 16: MCHC 33.3 g/dL (30-55) 08/18/24 16: RDW 13.2 % (12.1-15.1) 08/18/24 16: Plt Count 240 10^3/cmm (157-399) 08/18/24 16: MPV 10.1 fL (7.4-10.4) 08/18/24 16: Neut % (Auto) 65.7 % 08/18/24 16:25 Lymph % (Auto) 27.1 % 08/18/24 16:25 [place] % (Auto) 4.5 % 08/18/24: Eos % (Auto) 2.1 % 08/18/24: Baso % (Auto) 0.4 % 08/18/24: Neut # (Auto) 6.56 10^3/uL (1.8-7.7) 08/18/24 16: Lymph # (Auto) 2.7 10^3/uL (0.8-4.8) 08/18/24 16:25 [place] # (Auto) 0.5 10^3/uL (0.2-0.9) 08/18/24 16:25 Eos # (Auto) 0.2 10^3/uL (0.0-0.8) 08/18/24 16:25 Baso # (Auto) 0.0 10^3/uL (0.0-0.1) 08/18/24 16:25 Nucleated RBC % (auto) 0 % 08/18/24 16:25 Nucleated RBCs # 0.0 /100WBC 08/18/24 16:25 PT 12.40 SECONDS (12.1-14.9) 08/18/24 16:25 INR 0.86 (0.8-1.2) 08/18/24 16:25 Sodium 142 mmol/L (136-145) 08/18/24 17:19 Potassium 3.9 mmol/L (3.5-5.1) 08/18/24 17:19 Chloride 113 mmol/L (98-107) H 08/18/24 17:19 Carbon Dioxide 20 mmol/L (22-29) L 08/18/24 17:19 Anion Gap 12.9 (5-19) 08/18/24 17:19 BUN 13 mg/dL (6-20) 08/18/24 17:19 Creatinine 0.5 mg/dL (0.5-0.9) 08/18/24 17:19 GFR Calculation 134.7 mL/min (90-130) H 08/18/24 17:19 Glucose 86 mg/dL (65-115) 08/18/24 17:19 Calculated Osmolality 293 mOsm/kg (285-295) 08/18/24 17:19 Calcium 8.5 mg/dL (8.5-10.5) 08/18/24 17:19 Total Bilirubin 0.4 mg/dL (0.15-1.2) 08/18/24 17:19 AST 16 U/L (0-32) 08/18/24 17:19 ALT 10 U/L (0-33) 08/18/24 17:19 Alkaline Phosphatase 52 U/L (35-105) 08/18/24 17:19 Troponin T Baseline 8 ng/L (0-10) 08/18/24 16:25 Troponin T 120 Minute 8.21 ng/L (0-10) 08/18/24 18:54 Delta Troponin T 0.21 ABS# (0-10) 08/18/24 18:54 Total Protein 6.1 g/dL (6.6-8.7) L 08/18/24 17:19 Albumin 3.7 g/dL (3.5-5.2) 08/18/24 17:19 Globulin 2.4 g/dL (1.3-4.6) 08/18/24 17:19 Lipase 26 U/L (13-60) 08/18/24 17:19 All radiology interpretation(s) finalized by discharge EKG Data EKG 1: I personally reviewed and interpreted this EKG as follows: EKG interpretation date: 08/18/24 EKG interpretation time: 16:17 Interpretation: nsr hr [address] elevatin unchanged from previous qrs 104 qtc 432 Discharge Plan Discharge Condition: Stable Prescriptions: No Action atenolol 50 mg tablet 50 mg PO DAILY naproxen 500 mg tablet 500 mg PO BID PRN (Reason: Pain) cyclobenzaprine 10 mg tablet 10 mg PO TID baclofen 10 mg tablet 10 mg PO BID epinephrine 0.3 mg/0.3 mL auto-injector 0.3 mg IM PRN PRN (Reason: Allergic Reaction) Referrals: Sierra Law FNP [Primary Care Provider] - Print Language: Bruneian Coding Level of Care Code ED Hand Roller for Chg Stephanie
[2024-08-18 16:39] LABS: Basophils % 0.4 %; Eosinophils # 0.2 10^3/uL (0.0-0.8); Eosinophils % 2.1 %; Hematocrit 38.4 % (36-47); Lymphocytes # 2.7 10^3/uL (0.8-4.8); Lymphocytes % 27.1 %; Mean Corpuscular HGB Conc 33.3 g/dL (30-55); Mean Corpuscular Hemoglobin 30.3 pg (27-33); Mean Platelet Volume 10.1 fL (7.4-10.4); Monocytes # 0.5 10^3/uL (0.2-0.9); Monocytes % 4.5 %; Neutrophils # 6.56 10^3/uL (1.8-7.7); Neutrophils % 65.7 %; Nucleated Red Blood Cells % 0 %; Platelet Count 240 10^3/cmm (157-399); Red Blood Count 4.22 10^6/uL (3.85-5.65); Red Cell Distribution Width 13.2 % (12.1-15.1); White Blood Count 9.98 10^3/uL (3.29-11.43)
[2024-08-18 16:53] LABS: INR 0.86 (0.8-1.2)
[2024-08-18 17:06] LABS: Troponin(5th) Baseline 8 ng/L (0-10)
[2024-08-18 17:45] LABS: Alanine Aminotransferase 10 U/L (0-33); Albumin Level 3.7 g/dL (3.5-5.2); Alkaline Phosphatase 52 U/L (35-105); Anion Gap 12.9 (5-19); Aspartate Amino Transferase 16 U/L (0-32); Blood Urea Nitrogen 13 mg/dL (6-20); Calcium 8.5 mg/dL (8.5-10.5); Carbon Dioxide 20 mmol/L (22-29); Chloride 113 mmol/L (98-107); Creatinine Clr Calc Pharmacy 129.9302; Globulin 2.4 g/dL (1.3-4.6); Glomerular Filtration Rate 134.7 mL/min (90-130); Glucose 86 mg/dL (65-115); Lipase 26 U/L (13-60); Osmolality Calculated 293 mOsm/kg (285-295); Potassium 3.9 mmol/L (3.5-5.1); Sodium 142 mmol/L (136-145); Total Bilirubin 0.4 mg/dL (0.15-1.2); Total Protein 6.1 g/dL (6.6-8.7)
--- NOTE | 2024-08-18 17:59 | ECG_ITS ---
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1980 Requested By: Magali Barnard Order Number: [id number] Cuco MD: CLAUDIA LOPEZ Measurements Intervals [place] Rate: 54 P: 75 HI: 198 QRS: 84 QRSD: 110 T: 60 QT: 440 QTc: 420 Interpretive Statements SINUS BRADYCARDIA POSSIBLE ANTERIOR MYOCARDIAL INFARCTION , OF INDETERMINATE AGE [30 ms Q WAVE IN V3/V4, OR R < 0.2 mV IN V4] Compared to ECG 08/18/2024 16:17:31 Sinus rhythm no longer present Myocardial infarct finding still present Electronically Signed On 08-18-2024 23:45:07 TRANSPORTATION PLANNER by CLAUDIA LOPEZ [email or web address]
[2024-08-18 19:12] VITALS: BP 102/66; PULSE 63; RESP 11; O2SAT 97
[2024-08-18 19:30] LABS: Troponin 5 2HR 8.21 ng/L (0-10); Troponin 5 2HR Delta 0.21 ABS# (0-10)
--- NOTE | 2024-08-18 20:15 | PM.HP ---
Providers/Chief Complaint Primary Care Provider: PAUL Cantu Chief Complaint: Stemi Alert History of Present Illness Eloina Orellana is a 44 year old female with history of HOCM, follows up with HCM specialist at [facility], presented with chief complaint of chest pain. Patient is stating that she woke up with chest pain around 9:30 AM, she has been experiencing on and off chest pain for quite some time, this time this pain was different, it was lasting longer than few minutes, it was radiating towards her arm and neck, it was associated with extreme discomfort, she did not express any diaphoresis or vomiting. Patient is a smoker who is trying to cut back on her smoking smoking 6 cigarettes a day, patient is due for open heart intervention she is not a candidate for alcohol ablation, patient is due for pulmonary function test as well before her myomectomy In the ER patient is chest pain-free, EKG without any active/acute infarctive changes evaluated by cardiology plan for coronary angiogram in the morning troponin without significant delta Patient takes atenolol 50 mg 3 times a day, currently patient is bradycardic heart rate around 55, Patient is stating that she probably also has bicuspid aortic valve Review of Systems Const: Denies: fever(s) Eyes: Denies: change in vision ENMT: Denies: throat pain Card: Reports: chest pain Resp: Reports: dyspnea GI: Reports: nausea; Denies: abdominal pain : Denies: flank pain Medications/Allergies Home Medications ?Medication ?Instructions ?Recorded ?Confirmed ?Last Taken ?Type atenolol 50 mg tablet 50 mg PO DAILY 07/30/23 08/18/24 Unknown History naproxen 500 mg tablet 500 mg PO BID PRN Pain 07/17/24 08/18/24 Unknown History baclofen 10 mg tablet 10 mg PO BID 08/18/24 08/18/24 Unknown History cyclobenzaprine 10 mg tablet 10 mg PO TID 08/18/24 08/18/24 Unknown History epinephrine 0.3 mg/0.3 mL 0.3 mg IM PRN PRN Allergic Reaction 08/18/24 08/18/24 Unknown History injection, auto-injector Allergies Allergy/AdvReac Type Severity Reaction Status Date / Time morphine Allergy ALGY-Hives Verified 07/17/24 09:53 PFSH Acute PFSH: Medical History NSVT (nonsustained ventricular tachycardia) Mitral valve regurgitation Aortic valve regurgitation Surgical History S/P partial hysterectomy History of hernia repair Hx of section Family History Brother Hypertension Grandmother Hypertension Maternal Diabetes Maternal Mother Hypertension Stroke Diabetes Breast cancer Grandfather Cancer Maternal--unsure if liver or lung Father Cirrhosis of liver Social History Smoking and tobacco/nicotine status: current every day tobacco/nicotine user (0.5 ppd) Alcohol intake: current Alcohol intake frequency: 3 or more drinks per day Substance/Drug Use: current 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 Marital status: Vitals/I&O/Wt Last Vital Signs Temp 98.4 F 08/18/24 16:20 Pulse 63 08/18/24 19:12 Resp 11 L 08/18/24 19:12 BP 102/66 08/18/24 19:12 Pulse Ox 97 08/18/24 19:12 O2 Del Method Room Air 08/18/24 19:12 Weight last 48 hrs Weight 66.678 kg Physical Exam Narrative: Heart rate 55, hemodynamically stable Euvolemic Chest pain-free Pleasant and cooperative Nonfocal neuroexam S1, S2 No audible stridor or wheezing Nonfocal neuroexam Data 08/18/24 16:25 08/18/24 17:19 A&P Assessment and plan (1) Mitral valve regurgitation: Qualifiers: Cardiac valve disease etiology: nonrheumatic Qualified Code(s): I34.0 - Nonrheumatic mitral (valve) insufficiency (2) Aortic valve regurgitation: Qualifiers: Cardiac valve disease etiology: nonrheumatic Qualified Code(s): I35.1 - Nonrheumatic aortic (valve) insufficiency (3) Bicuspid aortic valve: (4) Hypertrophic cardiomyopathy: Plan Unstable angina Plan for angiogram in the morning N.p.o. midnight Dr. Cadet consulted No active infarctive changes No active non-STEMI changes Heart rate 55 patient takes atenolol 50 mg 3 times a day I will reduce the dose to 50 mg twice a day for now She is hemodynamically stable Full code N.p.o. after midnight Gentle fluid hydration overnight, continue aspirin, Patient is stating that she is due for myomectomy, AICD placement at [facility] in near future She will need pulmonary function test before her intervention Patient is asking to get a referral for the PDMP PDMP Reviewed: Not Reviewed Attestations Medical Necessity Statement*: Angiogram in the morning anticipating discharge within 24 to 48 hours Diagnoses Nonrheumatic mitral valve regurgitation I34.0 Cardiac valve disease etiology: nonrheumatic Nonrheumatic aortic valve insufficiency I35.1 Cardiac valve disease etiology: nonrheumatic Bicuspid aortic valve Q23.1 Hypertrophic cardiomyopathy I42.2
[2024-08-18 20:25] VITALS: BP 102/66; PULSE 61; RESP 16; O2SAT 98
--- NOTE | 2024-08-18 21:22 | PM.CONSULT ---
Providers/Reason For Consult Consulting Physician/Specialty*: Sandi Cadet MD Reason for Consult*: Chest pain Requesting Physician: Dr. Barnard Primary Care Provider: PAUL Cantu History of Present Illness History of Present Illness Eloina Orellana is a 44 year old female who has a history of hypertrophic cardiomyopathy started having chest pain earlier today. She described as chest pressure at the center of her chest that radiated down her arms and even went to her back and sometimes her jaw. She received an aspirin and nitro and route which significantly helped the pain. Currently she is chest pain-free but does report some back pain. She originally was thought to have a STEMI but looking at the EKG she had no acute changes and no ST elevation present. She states that she is seeing a cardiomyopathy center in [place]. She states she was recommended to have a myectomy and they are waiting on a left heart cath. Troponin so far negative. She states she was told she has a bicuspid valve. She does have a systolic murmur in the aortic space. Review of Systems Narrative: Consitutional: denies fever, chills, body aches, or changes in appetite, denies abnormal weight loss Eyes: Denies changes in vision Card: Denies chest pain, palpitations, irregular heart rhythm, edema, syncope, shortness of breath, orthopnea, leg pain with exertion Resp: Denies shortness of breath, denies hemoptysis, denies cough GI: denies abdominal pain, denies nausea or voimting, denies blood in stool : denies blood in urine, denies dysuria Musc: reports mid back pain Skin: Denies rash, lesions, or wounds, denies changes to skin color Neuro: Denies nubmness in extremities, h/a, s/s of stroke Jimy: Denies easy bruiding/bleeding Medications/Allergies Home Medications ?Medication ?Instructions ?Recorded ?Confirmed ?Last Taken ?Type atenolol 50 mg tablet 50 mg PO DAILY 07/30/23 08/18/24 Unknown History naproxen 500 mg tablet 500 mg PO BID PRN Pain 07/17/24 08/18/24 Unknown History baclofen 10 mg tablet 10 mg PO BID 08/18/24 08/18/24 Unknown History cyclobenzaprine 10 mg tablet 10 mg PO TID 08/18/24 08/18/24 Unknown History epinephrine 0.3 mg/0.3 mL 0.3 mg IM PRN PRN Allergic Reaction 08/18/24 08/18/24 Unknown History injection, auto-injector Allergies Allergy/AdvReac Type Severity Reaction Status Date / Time morphine Allergy ALGY-Hives Verified 07/17/24 09:53 PFSH Acute PFSH: Medical History NSVT (nonsustained ventricular tachycardia) Mitral valve regurgitation Aortic valve regurgitation Surgical History S/P partial hysterectomy History of hernia repair Hx of section Family History Brother Hypertension Grandmother Hypertension Maternal Diabetes Maternal Mother Hypertension Stroke Diabetes Breast cancer Grandfather Cancer Maternal--unsure if liver or lung Father Cirrhosis of liver Social History Smoking and tobacco/nicotine status: current every day tobacco/nicotine user (0.5 ppd) Alcohol intake: current Alcohol intake frequency: 3 or more drinks per day Substance/Drug Use: current 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 Marital status: Vitals/I&O/Wt Last Vital Signs Temp 98.4 F 08/18/24 16:20 Pulse 61 08/18/24 20:25 Resp 16 08/18/24 20:25 BP 102/66 08/18/24 20:25 Pulse Ox 98 08/18/24 20:25 O2 Del Method Room Air 08/18/24 20:25 Weight last 48 hrs Weight 147 lb Physical Exam Narrative: General: No apparent distress, healthy appearing, well nourished HENMT: normoceophalic Neck: No carotid bruit bilaterally Muskuloskeletal: Full ROM Lymphatic: no lymphedema noted Respiratory: Normal respiratory effort, clear to auscultation bilaterally throughout all lung mccall, no use of accessory muscles Cardio: No JVD, regular rate, regular rhythm, S1 S2 normal, systolic murmur aortic space, peripheral pulses 2+ radial palpated bilaterally GI: Normal to inspection, nondistended Extremities: Full ROM, normal, normal capillary refill, no cyanosis or edema Neuro: Alert and oriented x4, no focal motor deficits Psych: Affect normal, denies suicidal ideation, mental status grossly normal Skin: No rashes or lesions noted, no wounds Data 08/18/24 16:25 08/18/24 17:19 A&P Assessment and plan (1) Bicuspid aortic valve: (2) Hypertrophic cardiomyopathy: (3) Chest pain: Qualifiers: Chest pain type: unspecified Qualified Code(s): R07.9 - Chest pain, unspecified Plan At this time, patient is chest pain free. Troponins are stable. Due to recent episode of severe chest pain and needing ischemic workup prior to her open heart surgery, will proceed with left heart cath on inpatient basis. We will obtain echo as well. Recommend to continue to control heart rate. At this time, it is well controlled. We may do the angiogram as early as tomorrow. For now, will keep NPO after midnight. Thank you, Dr. Barnard, for allowing us to care for this very pleasant 44 year old female. PDMP PDMP Reviewed: Not Reviewed Consult Attestations Medical Necessity Statement: Patient stay expected to cross 2 midnights due to the above defined care. Coding Level of Care Code Acute Code for Chg Fwd Diagnoses Bicuspid aortic valve Q23.1 Hypertrophic cardiomyopathy I42.2 Chest pain R07.9 Chest pain type: unspecified
[2024-08-18 21:27] VITALS: BP 102/66; PULSE 57; RESP 14; O2SAT 98
--- NOTE | 2024-08-18 22:21 | ECG_ITS ---
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1980 Requested By: Magali Barnard Order Number: [id number] Reading MD: CLAUDIA LOPEZ Measurements Intervals [place] Rate: 50 P: 79 WI: 188 QRS: 92 QRSD: 109 T: 52 QT: 429 QTc: 394 Interpretive Statements SINUS BRADYCARDIA INDETERMINATE AXIS POSSIBLE ANTERIOR MYOCARDIAL INFARCTION , OF INDETERMINATE AGE [30 ms Q WAVE IN V3/V4, OR R < 0.2 mV IN V4] Compared to ECG 08/18/2024 17:59:24 Indeterminate axis now present Myocardial infarct finding still present Electronically Signed On 08-18-2024 23:45:02 SECOND MATE by CLAUDIA LOPEZ [email or web address]
[2024-08-18 23:07] VITALS: BP 105/49; PULSE 52; RESP 15; O2SAT 98
[2024-08-18 23:22] LABS: Troponin 5 6HR 9.54 ng/L (0-10); Troponin 5 6HR Delta 1.54 ng/L (0-12)
[2024-08-18 23:43] VITALS: RESP 18; O2SAT 99
[2024-08-18] MEDS: fentaNYL 50 mcg/mL INJ 2mL 25 MCG IVP (23:43)
[2024-08-18] MEDS: sodium chloride 0.9% 1,000 ML 75 ML IV (23:43)
[2024-08-19] VITALS (15 sets, daily range): BP systolic 93–134; BP diastolic 38–58; PULSE 46–72; RESP 12–25; TEMP 36.5–36.9; O2SAT 97–100; BMI 27.7
[2024-08-19 00:04] LABS: Vitamin B12 228 pg/mL (232-1245)
[2024-08-19 03:47] LABS: Basophils % 0.4 %; Eosinophils # 0.2 10^3/uL (0.0-0.8); Hematocrit 36.6 % (36-47); Lymphocytes # 3.3 10^3/uL (0.8-4.8); Lymphocytes % 40.1 %; Mean Corpuscular HGB Conc 33.6 g/dL (30-55); Mean Corpuscular Hemoglobin 30.3 pg (27-33); Mean Corpuscular Volume 90.1 fl (85-98); Mean Platelet Volume 9.6 fL (7.4-10.4); Monocytes # 0.5 10^3/uL (0.2-0.9); Monocytes % 5.5 %; Neutrophils # 4.23 10^3/uL (1.8-7.7); Neutrophils % 51.8 %; Nucleated Red Blood Cells % 0 %; Platelet Count 205 10^3/cmm (157-399); Red Blood Count 4.06 10^6/uL (3.85-5.65); Red Cell Distribution Width 13.2 % (12.1-15.1); White Blood Count 8.17 10^3/uL (3.29-11.43)
[2024-08-19 04:08] LABS: Anion Gap 13.1 (5-19); Blood Urea Nitrogen 13 mg/dL (6-20); Carbon Dioxide 20 mmol/L (22-29); Chloride 113 mmol/L (98-107); Creatinine Clr Calc Pharmacy 108.2752; Glomerular Filtration Rate 109.1 mL/min (90-130); Glucose 99 mg/dL (65-115); Magnesium 1.8 mg/dL (1.7-2.3); Osmolality Calculated 294 mOsm/kg (285-295); Potassium 4.1 mmol/L (3.5-5.1); Sodium 142 mmol/L (136-145)
[2024-08-19] MEDS: oxyCODONE 5 mg IR Tab/Cap PO (04:34)
[2024-08-19] MEDS: aspirin 81 mg EC Tablet PO (07:46)
[2024-08-19] MEDS: pantoprazole 40 mg SDV IVP (07:46)
--- NOTE | 2024-08-19 08:04 | XACV_ITS ---
Exam Room: [facility] Ht: 157 cm Wt: 67 kg BSA: 1.73 m2 Gender: Female : 1980 Any Known Allergies: Morphine Exam Priority: Routine Procedure(s): Procedure Description: Diagnostic procedure Procedure Description: Left Heart Catheterization Procedure Description: Left ventriculography Procedure Description: Coronary Angiography Chichi SHANKAR; Diagnostic Cath Status: Elective Diagnostic Findings * No disease noted in the Left Main, Left Anterior Descending, Right, or Circumflex coronary arteries. 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 * Coronary angiography shows right dominance. Conclusions 1. No disease noted in the Left Main, Left Anterior Descending, Right, or Circumflex coronary arteries. 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 2. Hyperdynamic left ventricular systolic function. Ejection fraction of 75%. Recommendations * Continue current medical management and risk factor modification. Diagnostic RX Recommendation: medical therapy and/or counseling LV EDP: 13 mmHg Ventriculography Ejection Fraction: 75.0 % Pressures Phase:Rest AO : 75 / 40 ( 55 ) @ 9:46:00 AM 72 / 46 ( 58 ) @ 9:50:00 AM 71 / 39 ( 54 ) @ 9:56:00 AM 72 / 38 ( 54 ) @ 9:56:00 AM LV : 104 / 15 / 18 @ 9:54:00 AM / @ 9:55:00 AM 76 / @ 9:56:00 AM Valves Phase:DefaultPhase AV : 5.0 @ 10:00:15 AM AV Mean Gradient: 5.0 @ 10:00:15 AM 5.0 @ 10:00:15 AM Clinical Evaluation EBL: 5mL-10mL Procedural Details Procedure Consent Obtained. Pre-Procedure Time Out. Identified patient by full name and date of as verbalized by the patient/guarantor. Does the consent match the physician's order: Yes. Accurate & Complete Informed Consent: Yes. Inpatient/Outpatient History & Physical on Chart: Yes. If H&P is completed, is and addenduem needed: No. Visualize and Verify Site with Patient/Guarantor: N/A. Relevant Radiology Images available: Yes. The risks, benefits, and alternatives of sedation and/or procedure were discussed by physician. The patient agrees to continue. Procedure started. [facility] Clinical Fraility Score: 3: Managing Well. Director Of Officiating Indications: Hypertrophic obstructive cardiomyopathy. Chest Pain Symptom Assessment: Typical Angina Symptoms. Cardiovascular Instability: No. Correct patient, site and procedure confirmed by cath team. PERRLA. 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 Lungs clear x 5 lobes. IV Site on Arrival: 18 gauge in the right anticubital. IV Site on Arrival: 20 gauge in the left anticubital. IV Fluids: 0.9% NaCl at KVO. 600 mL infused prior to [employer]. Pre Procedural Pulses: bilateral radial was 3+. Oxygen started at 2liters/min via nasal canula. right groin was prepped with chloroprep then draped in the usual sterile fashion. right radial was prepped with chloroprep then draped in the usual sterile fashion. Physician notified. Patient's family is in the [employer] waiting room. Dr. Cadet will update a tthe completion of the procedure. Equipment: 6F - Radial. Cardiac Cath Pack. ACIST Manifold Kit Model BT 2000. Heparinized Saline (2 units/mL), 1000 mL bag. Physician arrived. Baseline sample Acquired. HR: 75 BPM. Physician scrubbed in. Immediate Pre-Procedure Time Out. Correct Patient: Yes; Correct Procedure: Yes; Correct Site: Yes; Correct Patient Position: Yes; Correct Supplies: Yes; Dried Flammable Prep: Yes; Blood Products Available: N/A;. Lidocaine 1% infiltrated to the right radial. Arterial access obtained. Lidocaine 1% infiltrated to the right radial. A 5 portuguese TIG catheter in over the exchange J wire. Multiple views taken of left coronary artery. Catheter redirected to the RCA. Multiple views taken of right coronary artery. Catheter removed over the exchange J wire. A 5 portuguese Angled Pig catheter in over th exchange J wire. EDP Sample taken: LV 104/15,18; HR: 109 BPM; SpO2: 98%. LV gram performed in CORDOVA @ 10 mL/second for a total of 30 mL. EDP Sample taken: LV 73/9,19; HR: 68 BPM; SpO2: 98%. Pullback taken: LV 76/10,19; AO 71/39(54); Mean: 5mmHg, Peak to Peak: 5mmHg, SEP: 22sec/min; HR: 63 BPM; SpO2: 98%. Catheter removed over the exchange J wire. Dr. Cadet scrubbed out. A TR Band was successful obtaining hemostatsis at the Right Radial artery insertion site. Post Procedure: Pulses reassessed and unchanged. PERRLA. 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 No VTE prophylaxis required. Medication's Wasted: Lidocaine 1% = 18 mL. Medication's Wasted: Nitro = 50 mg. Medication's Wasted: Heparin = 1000 untis. Medication's Wasted: Other = Versed 1 mg. Medication's Wasted: Other = Fentanyl 25 mcg. Total IV fluids: 215 mL. Post-op diagnosis: Normal coronaries/HOCM. Complications: none. Estimated blood loss: 5mL-10mL. Responsiveness - Normal response to verbal stimuli; alert and oriented, PERRLA. Airway - Unaffected, no intervention required; spontaneous ventilation. Circulation: W/N/L, pulses unchanged. Nausea/Vomiting: No. Procedure completed. Patient transferred by bed to 1st floor. Vital chart was stopped. Access Site Site: Right Radial artery Sheath Size: 6 Fr Hemostasis Method: TR Band Hemostasis Success: Successful Procedure Medications Start: 9:31 AM Stop: 9:31 AM Medication: Versed Amount: 1 mg Route: I.V. Start: 9:31 AM Stop: 9:31 AM Medication: Fentanyl Amount: 25 mcg Route: I.V. Start: 9:37 AM Stop: 9:37 AM Medication: Versed Amount: 1 mg Route: I.V. Start: 9:37 AM Stop: 9:37 AM Medication: Fentanyl Amount: 25 mcg Route: I.V. Start: 9:43 AM Stop: 9:43 AM Medication: 0.9% Saline Amount: 250 ml Route: I.V. bolus Start: 9:43 AM Stop: 9:43 AM Medication: Versed Amount: 1 mg Route: I.V. Start: 9:43 AM Stop: 9:43 AM Medication: Fentanyl Amount: 25 mcg Route: I.V. Start: 9:45 AM Stop: 9:45 AM Medication: Heparin Amount: 5000 units Route: I.V. I, the attending physician, have reviewed and verified all procedure medications. Yes, all medications given per verbal order History/Risk Factors Hypertension: No Dyslipidemia: No Peripheral Arterial Disease (PAD): No Myocardial Infarction (OK): No Obesity: No Renal Disease: No Tobacco Use: Current/Recent(w/in 1 year) Prior Interventions PCI: No CABG: No Valve Surgery: No Report Signatures Finalized by Sandi Cadet MD on 08/19/2024 10:10 AM
[2024-08-19] MEDS: enoxaparin 40 mg/0.4 mL Syringe SUBCUT (08:32)
--- NOTE | 2024-08-19 09:23 | PC.CHAP ---
Pastoral Care Encounter/Spiritual Assessment Type of Contact [] Declined client care specialist visit [] Patient/Family/Request visit [] Outpatient visit [] Follow-up visit [] Physician referral [] Code/Alert [x] Routine visit [] Staff referral [] Actively dying [] Patient sleeping [] Family support [] [] Out of room [] Palliative care [] [] Receiving care in room [] Pre-surgical visit [] Trauma [] Long length of stay [] ICU visit [] Other: Relational/Emotional Strength [x] Patient feels connected with others/family/visitors/staff [] Distress [] Loneliness/isolation [] Abandonment Spirituality of Patient [x] Person of Dayanara [] Attends Church of their [place] [x] Believes in Prayer [] Reads Bible or Voodoo materials [] There are Spiritual issues to be addressed Lumber Marker Interventions [x] Prayer [x] Active listening [] Non-anxious presence [x] Spiritual/emotional support [] Crisis/trauma care [] Spiritual counseling [] Bereavement support [] Provided bereavement packet [] Provided Bible/devotional materials [] Provided toy/stuffed animal, coloring book to patient or family member [] Provided Communion [] Anointing/[place] [] Salvation [x] Completed spiritual assessment [] Other: Impact on Illness or Injury [] Angry [] Fearful [] Anxious [] Often cries [] Exhaustion [] Unable to work [] Unable to attend restorationism [] Unable to walk/stand [] Unable to read [] Unable to drive [] Unable to eat/drink [] Unable to sleep [] Unable to be with family [] Patient intubated [] Other: Summary Time spent with patient 5 min
--- NOTE | 2024-08-19 09:32 | W.PM.OPSUD ---
Surgery/Procedure H&P Update DATE OF PROCEDURE: August 19, 2024 DATE H&P PERFORMED: 08/18/24 PREOP DIAGNOSIS: Preop clearance for cardiac surgery/myomectomy/HOCM//chest pain PRIMARY INDICATION FOR PROCEDURE: Patient is scheduled for possible myomectomy for HOCM, she continues to have off-and-on chest pain presented with chest pain again in the ER, EKG was abnormal however troponin remains normal. Since patient continues to have chest pain and because of the fact she will be going for possible myomectomy we will proceed with left heart cath. Patient has been explained all risk-benefit and alternative for the procedure she would like to proceed with it. PATIENT REASSESSED PRIOR TO SEDATION, WITH NO CHANGE NOTED: Yes PHYSICAL EXAM: alert, oriented x 3, clear to auscultation bilaterally and regular rate & rhythm AIRWAY EVAL/ANESTHESIA PLAN: ASA II, Risks, benefits & alternatives of sedation and/or procedure discussed and Patient agrees to continue as planned
--- NOTE | 2024-08-19 14:33 | PC.NURSE ---
TR band removed. Dressing applied to non bleeding site.
--- NOTE | 2024-08-19 14:53 | P.PN_ITS ---
Subjective 2 Subjective: Patient is n.p.o. for cardiac catheterization. She has required about whether or not some testing will be available here at [facility] this recommended for her. The paper does show testing C/A/P which I suspect is probably a CT chest abdomen and pelvis but there going to confirm that. That is a case and that should not be a problem getting done here as outpatient basis. She is also to have pulmonary function testing done. I called the cardiopulmonary clinic here at [facility] today they report they are no longer doing PFT testing at this time. Therefore she will not be able to get her PFTs done here. She will need the ordering provider send that order to an appropriate facility. I am told many patients in this area using the [facility] system for PFTs currently. [facility] would also be an option. Medications: Reviewed: Yes Vitals/I&O/Wt Last Vital Signs Temp 98.4 F 08/19/24 12:00 Pulse 65 08/19/24 12:00 Resp 16 08/19/24 12:00 BP 107/50 08/19/24 12:00 Pulse Ox 98 08/19/24 12:00 O2 Del Method Room Air 08/19/24 12:00 08/18/24 08/19/24 08/19/24 22:59 06:59 14:59 Intake Total 600 / 600 Output Total 550 / 550 Balance -550 / -550 600 / 600 Weight last 48 hrs Weight 66.95 kg Weight 68.719 kg Weight 66.678 kg Physical Exam 2 Narrative: General: Patient is awake and alert. Pleasant. Head: Normocephalic. Atraumatic. EOM intact. Neck: No JVD. Cardiovascular: RRR. No gallops. No murmurs. No peripheral edema. Lungs: Clear to auscultation, no use of accessory muscles, no crackles or wheezes. Skin: No jaundice. No rashes. Abdomen: Normal bowel sounds, abdomen soft and nontender. Extremities: No cyanosis or clubbing. Musculoskeletal: No swollen or erythematous joints. Neurological: Moves all 4 extremities. No myoclonus. Data 08/19/24 03:28 08/19/24 03:28 A&P Assessment and plan (1) Mitral valve regurgitation: Qualifiers: Cardiac valve disease etiology: nonrheumatic Qualified Code(s): I34.0 - Nonrheumatic mitral (valve) insufficiency (2) Aortic valve regurgitation: Qualifiers: Cardiac valve disease etiology: nonrheumatic Qualified Code(s): I35.1 - Nonrheumatic aortic (valve) insufficiency (3) Bicuspid aortic valve: (4) Hypertrophic cardiomyopathy: Plan Chest pain -Cardiology consulted -N.p.o. for cardiac cath today -If no intervention required on cath, possible discharge in the afternoon History of HOCM -Patient is being worked up outpatient -Her CT scan could be done here if that is what those acronyms mean that she tells me -Her PFTs will not be able to be done here, she will need that coordinated with another health system Low B12 -Recommend replacement -Level will need rechecked as outpatient with PCP PDMP PDMP Reviewed: Not Reviewed Attestations 2 Medical Necessity Statement*: Patient requires ongoing hospitalization for cardiac cath today. Coding Level of Care Code Acute Code for [facility] Fwd Diagnoses Nonrheumatic mitral valve regurgitation I34.0 Cardiac valve disease etiology: nonrheumatic Nonrheumatic aortic valve insufficiency I35.1 Cardiac valve disease etiology: nonrheumatic Bicuspid aortic valve Q23.1 Hypertrophic cardiomyopathy I42.2
--- NOTE | 2024-08-19 15:35 | P.PN_ITS ---
Subjective 2 Subjective: Patient had negative left heart cath today. No complaints at this time. Vitals/I&O/Wt Last Vital Signs Temp 98.4 F 08/19/24 12:00 Pulse 65 08/19/24 12:00 Resp 16 08/19/24 12:00 BP 107/50 08/19/24 12:00 Pulse Ox 98 08/19/24 12:00 O2 Del Method Room Air 08/19/24 12:00 08/19/24 08/19/24 08/19/24 06:59 14:59 22:59 Intake Total 600 / 600 Output Total 550 / 550 Balance -550 / -550 600 / 600 Weight last 48 hrs Weight 147 lb 9.6 oz Weight 151 lb 8 oz Weight 147 lb Physical Exam 2 Narrative: Appears without distress. Data 08/19/24 03:28 08/19/24 03:28 A&P Assessment and plan (1) Bicuspid aortic valve: (2) Hypertrophic cardiomyopathy: Plan Patient may be discharged from cardiology standpoint once TR band has been off for a couple of hours. Will need f/u with her surgeon in the future. F/U in the clinic in 7-10 days for post cath site evaluation. PDMP PDMP Reviewed: Not Reviewed Attestations 2 Medical Necessity Statement*: Deferred to primary. Coding Level of Care Code Acute Code for [facility] Fwd Diagnoses Bicuspid aortic valve Q23.1 Hypertrophic cardiomyopathy I42.2
--- NOTE | 2024-08-19 16:01 | PM.DCS ---
Discharge Providers Date of Admission: 08/18/24 22:38 Date of Discharge: August 19, 2024 Attending Provider at Admission: Sandi Giraldo MD Attending Provider at Discharge: Alcon Anedrsen MD Primary Care Provider: PAUL Cantu Diagnoses at Discharge Discharge Diagnosis (1) Bicuspid aortic valve: Status: Acute (2) Hypertrophic cardiomyopathy: Status: Acute Reason for Visit Reason for Visit: Stemi Alert Hospital Course Hospital Course Eloina Orellana is a very pleasant 41-year-old female with a history of acute coronary syndrome was considered but ruled out with serial troponin, EKG and telemetry monitoring. Cardiology consulted and followed. HOC for which she is following at [facility] who presented with chest pain. Cardiology recommended cardiac catheterization which was performed and negative for obstructive coronary disease. Postprocedure course was uncomplicated. Patient discharged home in stable condition. She is to continue follow-up with her [facility] team and PCP. Patient was found to have low B12 level. She will be started on daily supplementation. Will defer to PCP whether or not she would benefit from B12 injections. Physical Exam Narrative: General: Patient is awake and alert. Pleasant. Head: Normocephalic. Atraumatic. EOM intact. Neck: No JVD. Cardiovascular: RRR. No gallops. No murmurs. No peripheral edema. Lungs: Clear to auscultation, no use of accessory muscles, no crackles or wheezes. Skin: No jaundice. No rashes. Abdomen: Normal bowel sounds, abdomen soft and nontender. Extremities: No cyanosis or clubbing. Musculoskeletal: No swollen or erythematous joints. Neurological: Moves all 4 extremities. No myoclonus. Discharge Data Studies Completed and Pending Completed Studies During Hospitalization Category Date Time Status SCIENTIFIC RESEARCH MANAGER request for service Routine Exams 08/19/24 08:04 Completed XR chest 1V portable [id number] Stat Exams 08/18/24 16:21 Completed Pending at discharge Category Date Time Status HCG Qualitative Urine. Routine Lab 08/18/24 21:27 Ordered CV. echo complete* [id number] Routine Ultrasound 08/19/24 21:28 Taken Radiology Impressions Chest X-Ray 08/18/24 16:21 IMPRESSION: No acute findings. Laboratory Results WBC 8.17 10^3/uL (3.29-11.43) 08/19/24 03:28 RBC 4.06 10^6/uL (3.85-5.65) 08/19/24 03: Hgb 12.30 g/dL (11.27-16.99) 08/19/24 03: Hct 36.6 % (36-47) 08/19/24 03: MCV 90.1 fl (85-98) 08/19/24 03: MCH 30.3 pg (27-33) 08/19/24 03: MCHC 33.6 g/dL (30-55) 08/19/24 03: RDW 13.2 % (12.1-15.1) 08/19/24 03: Plt Count 205 10^3/cmm (157-399) 08/19/24 03: MPV 9.6 fL (7.4-10.4) 08/19/24 03: Neut % (Auto) 51.8 % 08/19/24 03: Lymph % (Auto) 40.1 % 08/19/24 03: Routt % (Auto) 5.5 % 08/19/24 03: Eos % (Auto) 2.0 % 08/19/24 03: Baso % (Auto) 0.4 % 08/19/24 03: Neut # (Auto) 4.23 10^3/uL (1.8-7.7) 08/19/24 03: Lymph # (Auto) 3.3 10^3/uL (0.8-4.8) 08/19/24 03: Routt # (Auto) 0.5 10^3/uL (0.2-0.9) 08/19/24 03: Eos # (Auto) 0.2 10^3/uL (0.0-0.8) 08/19/24 03: Baso # (Auto) 0.0 10^3/uL (0.0-0.1) 08/19/24 03: Nucleated RBC % (auto) 0 % 08/19/24 03: Nucleated RBCs # 0.0 /100WBC 08/19/24 03: PT 12.40 SECONDS (12.1-14.9) 08/18/24 16:25 INR 0.86 (0.8-1.2) 08/18/24 16:25 Sodium 142 mmol/L (136-145) 08/19/24 03:28 Potassium 4.1 mmol/L (3.5-5.1) 08/19/24 03:28 Chloride 113 mmol/L (98-107) H 08/19/24 03:28 Carbon Dioxide 20 mmol/L (22-29) L 08/19/24 03:28 Anion Gap 13.1 (5-19) 08/19/24 03:28 BUN 13 mg/dL (6-20) 08/19/24 03:28 Creatinine 0.6 mg/dL (0.5-0.9) 08/19/24 03:28 GFR Calculation 109.1 mL/min (90-130) 08/19/24 03:28 Glucose 99 mg/dL (65-115) 08/19/24 03:28 Calculated Osmolality 294 mOsm/kg (285-295) 08/19/24 03:28 Calcium 8.0 mg/dL (8.5-10.5) L 08/19/24 03:28 Magnesium 1.8 mg/dL (1.7-2.3) 08/19/24 03:28 Total Bilirubin 0.4 mg/dL (0.15-1.2) 08/18/24 17:19 AST 16 U/L (0-32) 08/18/24 17:19 ALT 10 U/L (0-33) 08/18/24 17:19 Alkaline Phosphatase 52 U/L (35-105) 08/18/24 17:19 Troponin T Baseline 8 ng/L (0-10) 08/18/24 16:25 Troponin T 120 Minute 8.21 ng/L (0-10) 08/18/24 18:54 Delta Troponin T 0.21 ABS# (0-10) 08/18/24 18:54 Troponin T Hi Sens 6Hr 9.54 ng/L (0-10) 08/18/24 22:42 Troponin T Hi Sens 6Hr Delta 1.54 ng/L (0-12) 08/18/24 22:42 Total Protein 6.1 g/dL (6.6-8.7) L 08/18/24 17:19 Albumin 3.7 g/dL (3.5-5.2) 08/18/24 17:19 Globulin 2.4 g/dL (1.3-4.6) 08/18/24 17:19 Lipase 26 U/L (13-60) 08/18/24 17:19 Vitamin B12 228 pg/mL (232-1245) L 08/18/24 22:42 Vitals Last Vital Signs Temp 98.4 F 08/19/24 12:00 Pulse 65 08/19/24 12:00 Resp 16 08/19/24 12:00 BP 107/50 08/19/24 12:00 Pulse Ox 98 08/19/24 12:00 O2 Del Method Room Air 08/19/24 12:00 Discharge Plan Discharge Patient Disposition: Home Condition: Stable Prescriptions: New cyanocobalamin (vitamin B-12) 1,000 mcg capsule 1,000 mcg PO DAILY Qty: 30 1RF Continued atenolol 50 mg tablet 50 mg PO DAILY naproxen 500 mg tablet 500 mg PO BID PRN (Reason: Pain) cyclobenzaprine 10 mg tablet 10 mg PO TID baclofen 10 mg tablet 10 mg PO BID epinephrine 0.3 mg/0.3 mL auto-injector 0.3 mg IM PRN PRN (Reason: Allergic Reaction) Discharge Orders: Discharge Order (Routine); Ordered 08/19/24 Ordered By: Alcon Andersen Referrals: Johanna Byrd FNP [Nurse Practitioner] - 09/02/24 3:30 pm () Sierra Law FNP [Primary Care Provider] - (Patient will need to call the office and make a follow up appointment ) Discharge Diet: Advance as tolerated and Usual diet Discharge Activity: Resume usual activity and Increase activity as tolerated Patient Instructions: Folic Acid/Cyanocobalamin (By mouth), Mitral Regurgitation (DC), Hypertrophic Cardiomyopathy (DC), Opioid Safety Activity Restrictions/Additional Instructions: 1. No driving or operating machinery for 24 hours post procedure. 2. Take medications as prescribed. 3. Follow-up with PCP within 1 week. 4. Follow-up with [facility] team. Discharge Attestations Time Spent in Discharge Care*: greater than 30 min Quality Metrics Clinical Quality Measures [ No reported AMI, CVA or VTE this stay] Coding Level of Care Code Acute Code for Chg Fwd Diagnoses Bicuspid aortic valve Q23.1 Hypertrophic cardiomyopathy I42.2
--- NOTE | 2024-08-19 21:28 | USCV_ITS ---
Eloina Orellana Age: 44 Gender: F : 1980 Exam Date: 08/19/2024 00:21 Ordering Phys: Frances Luna NP Technologist: TOYIN [place] [facility]: hypertrophic cardiomyopathy, CP pending myomectomy and AVR BP: 102 / 66 HR: 49 Rhythm: Sinus Technical Quality: Adequate MEASUREMENTS (Male / Female) Normal Values 2D ECHO LV Diastolic Diameter PLAX 5.0 cm 4.2 - 5.9 / 3.9 - 5.3 cm IVS Diastolic Thickness 2.2 cm 0.6 - 1.0 / 0.6 - 0.9 cm IVS Systolic Thickness 2.8 cm LVPW Diastolic Thickness 1.4 cm 0.6 - 1.0 / 0.6 - 0.9 cm LVPW Systolic Thickness 1.8 cm LVOT Diameter 1.8 cm LV Ejection Fraction 2D Teich 80.3 % LV Ejection Fraction MOD 4C 69.6 % LV Ejection Fraction MOD 2C 69.2 % LV Ejection Fraction 2C AL 76.0 % LA Diameter 3.5 cm Aorta at Sinotubular Diameter 2.5 cm IVC Diameter 1.8 cm M-MODE LA Ao Ratio MM 1.2 AV Cusp Separation MM 1.9 cm DOPPLER AV Peak Velocity 440.0 cm/s LVOT Peak Velocity 380.0 cm/s AV Area Cont Eq vti 1.2 cm squared AV Area Cont Eq pk 2.1 cm squared MV Area PHT 6.2 cm squared Mitral E to A Ratio 2.0 TV Peak Velocity 267.5 cm/s TR Peak Velocity 277.0 cm/s TR Peak Gradient 30.7 mmHg TV Peak E Velocity 45.0 cm/s PV Peak Velocity 100.0 cm/s FINDINGS Left Ventricle Severe left ventricular hypertrophy with more prominent hypertrophy of interventricular septum. Septal thickness of 2.2 cm. LV systolic function is normal with EF of 65 to 70%. No regional wall motion abnormalities are seen Right Ventricle Normal in size and function Right Atrium Normal in size Left Atrium Dilated Mitral Valve Structurally normal mitral valve. Mild mitral regurgitation. Systolic anterior motion of mitral valve Aortic Valve Possible bicuspid aortic valve. Mild to moderate aortic regurgitation. Peak gradient across aortic LVOT is 57mmHg with mean gradient of 20mmHg. Mean gradient across aortic valve is 33mmHG. Tricuspid Valve Mild tricuspid regurgitation. RVSP is normal. Pulmonic Valve Not well visualized Pericardium Normal Aorta Normal in size IVC Appears to be normal CONCLUSIONS Severe left ventricular hypertrophy with more prominent hypertrophy of interventricular septum. Diastolic septal thickness of 2.2 cm. LV systolic function is normal with EF of 65 -70%. Left atrial dilation. Systolic anterior motion of mitral valve. Mild mitral regurgitation Possible bicuspid aortic valve. Mild to moderate aortic regurgitation. Peak gradient across aortic LVOT is 57mmHg with mean gradient of 20mmHg. Mean gradient across aortic valve is 33mmHG. Mild tricuspid regurgitation. Compared to prior echocardiogram from 2022, no significant changes are seen Jeremie Bartholomew MD (Electronically Signed) Final Date: 20 August 2024 09:01 S
== END 2024-08-19 16:45 | disposition home or self-care (01) ==
LOC: ER 16:44 → ER IP 23:08 → CSU 08-19 07:03
PROVIDERS: Internal Medicine Cardiovascular Disease; Admitting Provider Internal Medicine; Emergency Provider Emergency Medicine; PCP Nurse Practitioner Family; Visit Provider Internal Medicine
DX: I34.0 Nonrheumatic mitral (valve) insufficiency (principal); I35.1 Nonrheumatic aortic (valve) insufficiency; Q23.1 Congenital insufficiency of aortic valve; I42.2 Other hypertrophic cardiomyopathy; Z79.899 Other long term (current) drug therapy; Z88.5 Allergy status to narcotic agent; Z90.711 Acquired absence of uterus with remaining cervical stump; F17.210 Nicotine dependence, cigarettes, uncomplicated
CPT/HCPCS: 36415; 71045; 80048; 80053; 82607; 83690; 83735; 84484; 85025; 85610; 93005; 93306; 93458; 96361; 96372; 96374; 99152; 99153; 99285; C1769; C1887; C1894; G0378; J1644; J1650; J2250; J2470; J3010; J3490; J7030; Q9967

== ENCOUNTER 2024-09-01 06:46 | Outpatient (CLI) | payer MEDICAID, SELFPAY ==
[2024-09-01] MEDS: albuterol 2.5 mg/3 mL Neb INHALATION (07:30)
== END 2024-09-01 06:47 | disposition home or self-care (01) ==
PROVIDERS: PCP Nurse Practitioner Family; Visit Provider Nurse Practitioner Family
DX: F17.200 Nicotine dependence, unspecified, uncomplicated (principal); Q23.1 Congenital insufficiency of aortic valve; I42.2 Other hypertrophic cardiomyopathy; R93.89 Abnormal findings on diagnostic imaging of other specified body structures
CPT/HCPCS: 94060; 94726; 94729; J7613

== ENCOUNTER 2024-09-03 13:16 | Outpatient (CLI) | payer MEDICAID, SELFPAY ==
--- NOTE | 2024-09-03 13:15 | CTR_ITS ---
PROCEDURE INFORMATION: Exam: CT Chest Without Contrast; Diagnostic Exam date and time: 09/03/2024 1:18 PM Age: 44 years old Clinical indication: Other: Preoperative for open heard; Pre-operative exam; Cardiovascular screening and respiratory screening exam; Prior surgery; Surgery date: 6+ months; Surgery type: Tubal, hernia, breast markers; Additional info: Preop testing TECHNIQUE: Imaging protocol: Diagnostic computed tomography of the chest without contrast. Radiation optimization: All CT scans at this facility use at least one of these dose optimization techniques: automated exposure control; mA and/or kV adjustment per patient size (includes targeted exams where dose is matched to clinical indication); or iterative reconstruction. COMPARISON: CR XR chest 1V portable [id number] 08/18/2024 4:24 PM RADIATION DOSE METRICS: Total DLP (mGy-cm): 669.42 FINDINGS: Lungs: Unremarkable. No consolidation. No masses. Pleural spaces: Unremarkable. No pneumothorax. No pleural effusion. Heart: Unremarkable. No cardiomegaly. No pericardial effusion. Coronary arteries: No calcification in the visualized coronary arteries. Lymph nodes: Unremarkable. No enlarged lymph nodes. Vasculature: Unremarkable. No aortic aneurysm. Bones/joints: Unremarkable. No acute fracture. Soft tissues: Unremarkable visualized chest wall. Otherwise, unremarkable soft tissues. PROCEDURE INFORMATION: Exam: CT Abdomen And Pelvis Without Contrast Exam date and time: 09/03/2024 1:18 PM Age: 44 years old Clinical indication: Other: Preoperative for open heard; Pre-operative exam; Cardiovascular screening and respiratory screening exam; Prior surgery; Surgery date: 6+ months; Surgery type: Tubal, hernia, breast markers; Additional info: Preop testing TECHNIQUE: Imaging protocol: Computed tomography of the abdomen and pelvis without contrast. Radiation optimization: All CT scans at this facility use at least one of these dose optimization techniques: automated exposure control; mA and/or kV adjustment per patient size (includes targeted exams where dose is matched to clinical indication); or iterative reconstruction. COMPARISON: ES surgery / GI images 08/22/2021 9:05 AM RADIATION DOSE METRICS: Total DLP (mGy-cm): 669.42 FINDINGS: Liver: 2 cm, slightly irregular low-density lesion in the dome of the liver is not a cyst. Uncertain etiology, but statistically this is a benign hemangioma. Otherwise, unremarkable. Gallbladder and biliary ducts: Normal. No calcified stones. No ductal dilation. Pancreas: Normal. No ductal dilation. Spleen: Normal. No splenomegaly. Adrenal glands: Normal. No mass. Kidneys and ureters: Normal. No hydronephrosis. Stomach and bowel: Unremarkable. No obstruction. No mucosal thickening. Appendix: No evidence of appendicitis. Intraperitoneal space: Unremarkable. No free air. No significant fluid collection. Vasculature: Unremarkable. No abdominal aortic aneurysm. Lymph nodes: Unremarkable. No enlarged lymph nodes. Urinary bladder: Unremarkable. Reproductive: Unremarkable. Bones/joints: Unremarkable. No acute fracture. Soft tissues: Unremarkable visualized body wall. Otherwise, unremarkable soft tissues. CT[id number] IMPRESSION: Negative CT of the chest. IMPRESSION: 1. 2 cm, slightly irregular low-density lesion in the dome of the liver is not a cyst. Uncertain etiology, but statistically this is a benign hemangioma. This can be clarified with ultrasound or MRI. 2. Otherwise, negative CT of the abdomen and pelvis.
== END 2024-09-03 13:17 | disposition home or self-care (01) ==
PROVIDERS: PCP Nurse Practitioner Family; Visit Provider Nurse Practitioner Family
DX: Q23.1 Congenital insufficiency of aortic valve (principal); I42.2 Other hypertrophic cardiomyopathy; F17.200 Nicotine dependence, unspecified, uncomplicated; K76.9 Liver disease, unspecified
CPT/HCPCS: 71250; 74176

== ENCOUNTER 2024-10-21 10:00 | Emergency (ER) | payer MEDICAID, SELFPAY ==
[2024-10-21 10:18] VITALS: BP 111/67; PULSE 79; RESP 16; TEMP 36.8; O2SAT 100; BMI 29.2
--- NOTE | 2024-10-21 10:28 | ECG_ITS ---
[facility] Date: 2024-10-21 Pat Name: Eloina Orellana Department: Room: Gender: Female Minister Assistant: : 1980 Requested By: Magali Barnard Order Number: [id number] Norwood MD: Jeremie Bartholomew M.D. Measurements Intervals [place] Rate: 73 P: 66 AL: 162 QRS: 69 QRSD: 146 T: -75 QT: 407 QTc: 451 Interpretive Statements SINUS RHYTHM POSSIBLE LEFT ATRIAL ENLARGEMENT [-0.1mV P-WAVE IN V1/V2] INTRAVENTRICULAR CONDUCTION DELAY [130+ ms QRS DURATION] Compared to ECG 08/18/2024 22:57:47 Intraventricular conduction delay now present Sinus bradycardia no longer present Indeterminate axis no longer present Myocardial infarct finding no longer present Electronically Signed On 10-26-2024 10:39:45 CDT by Jeremie Bartholomew M.D. [id number]
--- NOTE | 2024-10-21 10:38 | CT_ITS ---
WS: [id number] CT HEAD NONCONTRAST HISTORY: fall TECHNIQUE: Contiguous axial imaging performed through the brain. Bone and soft tissue windows. Sagittal and coronal reformats reviewed. All CT scans at [facility] use at least one of these dose optimization techniques: automated exposure control; mA and/or kV adjustment per patient size (includes targeted exams where dose is matched to clinical indication); or iterative reconstruction. DLP: 1226.12 mGy.cm COMPARISON: 01/20/2024 No acute intracranial hemorrhage, midline shift or mass effect. No atrophy or prior infarcts or herniation. Ventricles: Normal size with no hydrocephalus. No inferior displacement the cerebellar tonsils. Paranasal sinuses: As visualized are clear. Mastoid air cells: Well pneumatized. Calvarium and scalp: Skull is intact with no soft tissue edema or swelling. CT/CT head wo con* [id number] IMPRESSION: Negative head CT.
--- NOTE | 2024-10-21 10:38 | CT_ITS ---
WS: [id number] CT CHEST, ABDOMEN AND PELVIS WITH CONTRAST HISTORY: fall, recent open heart surgery. TECHNIQUE: Contiguous 5 mm axial imaging performed through the chest, abdomen and pelvis with IV contrast, oral contrast has not been provided. Coronal and sagittal reformats chest. Coronal and sagittal reformats through the abdomen and pelvis. All CT scans at [facility] use at least one of these dose optimization techniques: automated exposure control; mA and/or kV adjustment per patient size (includes targeted exams where dose is matched to clinical indication); or iterative reconstruction. CONTRAST: Omnipaque 350; 100 mL IV. DLP: 915.45 mGy.cm COMPARISON: 09/03/[address]: Recent median sternotomy postsurgical changes are identified. Aortic valve replacement. No dehiscence. No associated fluid collection or complication. LEFT heart is enlarged. LEFT ventricular septum appears prominent. No pericardial effusions. No pulmonary mass or pneumonia. Curvilinear scar atelectasis at the RIGHT lung base. Normal size pulmonary artery and aorta. No proximal pulmonary embolism. Abdomen CT: Normal size liver. Peripherally enhancing mass measures 1.8 cm in the RIGHT lobe consistent with a hemangioma. Liver normal variant as it wraps around to the LEFT upper quadrant. No intrahepatic duct dilatation. Negative gallbladder. Normal spleen. Negative pancreas and adrenal glands. No renal obstruction. No GI tract obstruction. No mesenteric hematoma or injury. No adenopathy or ascites. Pelvic CT: Negative. No rib fractures. No spine fractures or pelvic fractures. CT/CT chest abdpel w/*[id number] IMPRESSION: 1. Recent median sternotomy with aortic valve replacement. 2. No complications associated with the surgery are evident. 3. No pneumothorax. 4. No visceral organ injury or hematoma. 5. Hepatic hemangioma, 1.8 cm. 6. No GI tract obstruction. 7. No fractures.
--- NOTE | 2024-10-21 10:38 | CT_ITS ---
WS: [id number] CT CERVICAL SPINE HISTORY: fall TECHNIQUE: Contiguous 2.0 mm axial imaging performed through the entire cervical spine. Sagittal and coronal reformats also performed. All CT scans at [facility] use at least one of these dose optimization techniques: automated exposure control; mA and/or kV adjustment per patient size (includes targeted exams where dose is matched to clinical indication); or iterative reconstruction. DLP: 1226.12 mGy.cm COMPARISON: 08/08/2008 Normal cervical alignment. Craniocervical junction, atlantodental interval and C1-C2 alignment is normal. Mild degenerative disc disease at C5-6 with osteophytic ridging. C2-C3: Normal. C3-C4: Normal. C4-C5: Normal. C5-C6: Mild osteophytic ridging encroaching upon the ventral thecal sac. Mild central and LEFT foraminal stenosis. C6-C7: Normal. C7-T1: Normal. Soft tissues are normal. Lung apices are clear. CT/CT cervical spin wo con* [id number] IMPRESSION: No cervical spine fracture.
--- NOTE | 2024-10-21 10:40 | W.ED.DIZZY ---
HPI - Dizziness General: Chief Complaint: Dizziness Stated Complaint: fall (surgery 09/23/24) Time Seen by Provider: 10/21/24 10:16 Source: patient Mode of arrival: ambulatory Limitations: no limitations History of Present Illness: HPI Narrative: 44-year-old female had a history of open heart surgery September 23 states she had surgery for aortic valve repair also had a mitral valve surgery as well and also to have a procedure for her hypertrophic cardiomyopathy states she been doing well but over the last 2 days she has had some lightheadedness especially standing. She states that she had a fall yesterday she did hit her head and having head back on some abdominal pain from a fall. She denies any chest pain at this time denies any vomiting or diarrhea Associated symptoms: Reports headache(s); Denies chills, nausea or vomiting Related Data Home Medications ?Medication ?Instructions ?Recorded ?Confirmed baclofen 10 mg tablet 10 mg PO BID 08/18/24 10/21/24 aspirin 81 mg tablet,delayed 81 mg PO DAILY 10/15/24 10/21/24 release (Adult Low Dose Aspirin) docusate sodium 100 mg capsule 100 mg PO DAILY 10/15/24 10/21/24 gabapentin 100 mg capsule 100 mg PO TID 10/15/24 10/21/24 lidocaine 5 % topical patch 1 patch topical DAILY 10/15/24 10/21/24 (DermacinRx Lidocan) metoprolol succinate 25 mg 25 mg PO DAILY 10/15/24 10/21/24 tablet,extended release 24 hr sennosides 8.6 mg capsule (senna) 8.6 mg PO DAILY 10/15/24 10/21/24 acetaminophen 325 mg tablet 650 mg PO QID PRN Pain 10/21/24 10/21/24 cyclobenzaprine 10 mg tablet 10 mg PO TID 10/21/24 10/21/24 epinephrine 0.3 mg/0.3 mL See Rx Instructions .Route .COMPLEX 10/21/24 10/21/24 injection, auto-injector ondansetron 4 mg disintegrating See Rx Instructions .Route .COMPLEX 10/21/24 10/21/24 tablet Previous Rx's ?Medication ?Instructions ?Recorded warfarin 4 mg tablet 4 mg PO DAILY #90 tabs 10/15/24 Allergies Allergy/AdvReac Type Severity Reaction Status Date / Time morphine Allergy ALGY-Hives Verified 10/15/24 14:51 Review of Systems Const: Denies: fever(s), chills, body aches or change in appetite Eyes: Denies: blurry vision or eye discomfort ENMT: Denies: throat pain or dental pain Card: Reports: lightheadedness and pre-syncope Resp: Denies: dyspnea GI: Reports: abdominal pain; Denies: nausea, vomiting or diarrhea Musc: Reports: back pain; Denies: neck pain Neuro: Reports: headache(s) PFSH ED PFSH: Medical History NSVT (nonsustained ventricular tachycardia) Mitral valve regurgitation Aortic valve regurgitation Surgical History S/P partial hysterectomy History of hernia repair Hx of section Family History Brother Hypertension Grandmother Hypertension Maternal Diabetes Maternal Mother Hypertension Stroke Diabetes Breast cancer Grandfather Cancer Maternal--unsure if liver or lung Father Cirrhosis of liver Social History Smoking and tobacco/nicotine status: current every day tobacco/nicotine user Alcohol intake: current Alcohol intake frequency: 3 or more drinks per day Substance/Drug Use: current 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 Marital status: Physical Exam Const: COMMON NORMALS: no acute distress, patient oriented x3 and healthy appearing HENMT: COMMON NORMALS: normocephalic HEAD & SCALP: normocephalic OTHER: tenderness to post scalp Eye: COMMON NORMALS: Equal, round and reactive pupils present and EOMs intact bilaterally PUPIL: Yes Equal, round and reactive pupils present Neck/C-Spine: COMMON NORMALS: full ROM and supple Chest: COMMONS NORMALS: normal inspection of the chest and normal palpation of entire chest wall Resp: COMMON NORMALS: normal respiratory effort, No retractions, No use of accessory muscles and clear to auscultation bilaterally AUSCULTATION: clear to auscultation bilaterally Cardio: COMMON NORMALS: regular rate RATE: regular rate GI: COMMON NORMALS: Normal to inspection, nondistended, normoactive bowel sounds present, Soft to palpation and no masses PALPATION: Yes Soft to palpation OTHER: diffuse mild tenderness Back/Pelvis: OTHER: Tenderness along thoracic spine Extremity: COMMON NORMALS: normal to inspection and full ROM Neuro: COMMON NORMALS: patient oriented x3, moves all extremities and no focal motor deficits Psych: COMMON NORMALS: mental status grossly normal, Normal thought process present and cooperative THOUGHT PROCESS: Normal thought process present Skin: COMMON NORMALS: no rashes or lesions noted and no wounds GENERAL SKIN EXAM: no rashes or lesions noted Course Vital Signs: Vital signs: Vital Signs Temperature 98.2 F 10/21/24 10:18 Pulse Rate 70 10/21/24 11:36 Respiratory Rate 16 10/21/24 10:18 Blood Pressure 111/67 10/21/24 10:18 Pulse Oximetry 100 10/21/24 11:36 Oxygen Delivery Me thod Room Air 10/21/24 10:18 MDM - Dizziness Medical Decision Making Patient presents with near syncopal event she has been well-appearing here feels much improved after IV fluids imaging here was all normal she has had no chest pain she has follow-up with her CT surgeon tomorrow follow-up as scheduled return if worsening she understands agrees to plan. Medical Records I reviewed the patient's medical records. Lab Data I reviewed the patient's lab results. 10/21/24 10:46 10/21/24 10:46 Radiology Impressions Cervical Spine CT 10/21/24 10:38 IMPRESSION: No cervical spine fracture. Chest/Abdomen/Pelvis CT 10/21/24 10:38 IMPRESSION: 1. Recent median sternotomy with aortic valve replacement. 2. No complications associated with the surgery are evident. 3. No pneumothorax. 4. No visceral organ injury or hematoma. 5. Hepatic hemangioma, 1.8 cm. 6. No GI tract obstruction. 7. No fractures. Head CT 10/21/24 10:38 IMPRESSION: Negative head CT. Laboratory Results WBC 9.03 10^3/uL (3.29-11.43) 10/21/24 10:46 RBC 4.30 10^6/uL (3.85-5.65) 10/21/24 10:46 Hgb 12.40 g/dL (11.27-16.99) 10/21/24 10:46 Hct 39.3 % (36-47) 10/21/24 10:46 MCV 91.4 fl (85-98) 10/21/24 10:46 MCH 28.8 pg (27-33) 10/21/24 10:46 MCHC 31.6 g/dL (30-55) 10/21/24 10:46 RDW 14.5 % (12.1-15.1) 10/21/24 10:46 Plt Count 445 10^3/cmm (157-399) H 10/21/24 10:46 MPV 8.9 fL (7.4-10.4) 10/21/24 10:46 Neut % (Auto) 58.8 % 10/21/24 10:46 Lymph % (Auto) 30.6 % 10/21/24 10:46 [place] % (Auto) 4.7 % 10/21/24 10:46 Eos % (Auto) 4.9 % 10/21/24 10:46 Baso % (Auto) 0.6 % 10/21/24 10:46 Neut # (Auto) 5.32 10^3/uL (1.8-7.7) 10/21/24 10:46 Lymph # (Auto) 2.8 10^3/uL (0.8-4.8) 10/21/24 10:46 [place] # (Auto) 0.4 10^3/uL (0.2-0.9) 10/21/24 10:46 Eos # (Auto) 0.4 10^3/uL (0.0-0.8) 10/21/24 10:46 Baso # (Auto) 0.1 10^3/uL (0.0-0.1) 10/21/24 10:46 Nucleated RBC % (auto) 0 % 10/21/24 10:46 Nucleated RBCs # 0.0 /100WBC 10/21/24 10:46 PT 31.30 SECONDS (12.1-14.9) H 10/21/24 10:46 INR 2.83 (0.8-1.2) H 10/21/24 10:46 Sodium 143 mmol/L (136-145) 10/21/24 10:46 Potassium 4.2 mmol/L (3.5-5.1) 10/21/24 10:46 Chloride 108 mmol/L (98-107) H 10/21/24 10:46 Carbon Dioxide 24 mmol/L (22-29) 10/21/24 10:46 Anion Gap 15.2 (5-19) 10/21/24 10:46 BUN 14 mg/dL (6-20) 10/21/24 10:46 Creatinine 0.7 mg/dL (0.5-0.9) 10/21/24 10:46 GFR Calculation 91.3 mL/min (90-130) 10/21/24 10:46 Glucose 79 mg/dL (65-115) 10/21/24 10:46 Calculated Osmolality 295 mOsm/kg (285-295) 10/21/24 10:46 Calcium 9.0 mg/dL (8.5-10.5) 10/21/24 10:46 Total Bilirubin 0.2 mg/dL (0.15-1.2) 10/21/24 10:46 AST 14 U/L (0-32) 10/21/24 10:46 ALT 11 U/L (0-33) 10/21/24 10:46 Alkaline Phosphatase 87 U/L (35-105) 10/21/24 10:46 Total Protein 7.3 g/dL (6.6-8.7) 10/21/24 10:46 Albumin 3.7 g/dL (3.5-5.2) 10/21/24 10:46 Globulin 3.6 g/dL (1.3-4.6) 10/21/24 10:46 All radiology interpretation(s) finalized by discharge Discharge Plan Discharge Patient Disposition: Home Clinical Impression: Syncope, near, Closed head injury Condition: Stable Prescriptions: No Action aspirin [Adult Low Dose Aspirin] 81 mg tablet,delayed release (DR/EC) 81 mg PO DAILY lidocaine [DermacinRx Lidocan] 5 % adhesive patch,medicated 1 patch topical DAILY Rx Instructions: leave on most painful area for up to 12 hrs docusate sodium 100 mg capsule 100 mg PO DAILY gabapentin 100 mg capsule 100 mg PO TID metoprolol succinate 25 mg tablet extended release 24 hr 25 mg PO DAILY senna 8.6 mg capsule 8.6 mg PO DAILY warfarin 4 mg tablet 4 mg PO DAILY Qty: 90 2RF Rx Instructions: As instructed by the doctor baclofen 10 mg tablet 10 mg PO BID cyclobenzaprine 10 mg tablet 10 mg PO TID acetaminophen 325 mg tablet 650 mg PO QID PRN (Reason: Pain) epinephrine 0.3 mg/0.3 mL auto-injector See Rx Instructions .ROUTE .COMPLEX Rx Instructions: ;USE TO INJECT INTRAMUSCULARLY NEEDED FOR ANAPHYLAXIS ondansetron 4 mg tablet,disintegrating See Rx Instructions .ROUTE .COMPLEX Rx Instructions: dissolve 1 tablet on tongue then swallow with saliva EVERY 8 HOURS NEEDED FOR NAUSEA AND VOMITING Discharge Orders: Discharge ED (Routine); Ordered 10/21/24 Ordered By: Magali Barnard Referrals: Sierra Law FNP [Primary Care Provider, Nurse Practitioner] Discharge Diet: Advance as tolerated Discharge Activity: Resume usual activity Patient Instructions: Head Injury (ED), Near Syncope (ED) Print Language: Gambian Coding Level of Care Code ED Ken[employer] 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
[2024-10-21] MEDS: sodium chloride 0.9% 1,000 ML 999 ML IV (10:55)
[2024-10-21 10:59] LABS: Basophils # 0.1 10^3/uL (0.0-0.1); Basophils % 0.6 %; Eosinophils # 0.4 10^3/uL (0.0-0.8); Eosinophils % 4.9 %; Hematocrit 39.3 % (36-47); Lymphocytes # 2.8 10^3/uL (0.8-4.8); Lymphocytes % 30.6 %; Mean Corpuscular HGB Conc 31.6 g/dL (30-55); Mean Corpuscular Hemoglobin 28.8 pg (27-33); Mean Corpuscular Volume 91.4 fl (85-98); Mean Platelet Volume 8.9 fL (7.4-10.4); Monocytes # 0.4 10^3/uL (0.2-0.9); Monocytes % 4.7 %; Neutrophils # 5.32 10^3/uL (1.8-7.7); Neutrophils % 58.8 %; Nucleated Red Blood Cells % 0 %; Platelet Count 445 10^3/cmm (157-399); Red Cell Distribution Width 14.5 % (12.1-15.1); White Blood Count 9.03 10^3/uL (3.29-11.43)
[2024-10-21 11:12] LABS: INR 2.83 (0.8-1.2)
[2024-10-21 11:20] LABS: Alanine Aminotransferase 11 U/L (0-33); Albumin Level 3.7 g/dL (3.5-5.2); Alkaline Phosphatase 87 U/L (35-105); Anion Gap 15.2 (5-19); Aspartate Amino Transferase 14 U/L (0-32); Blood Urea Nitrogen 14 mg/dL (6-20); Carbon Dioxide 24 mmol/L (22-29); Chloride 108 mmol/L (98-107); Creatinine Clr Calc Pharmacy 96.6661; Globulin 3.6 g/dL (1.3-4.6); Glomerular Filtration Rate 91.3 mL/min (90-130); Glucose 79 mg/dL (65-115); Osmolality Calculated 295 mOsm/kg (285-295); Potassium 4.2 mmol/L (3.5-5.1); Sodium 143 mmol/L (136-145); Total Bilirubin 0.2 mg/dL (0.15-1.2); Total Protein 7.3 g/dL (6.6-8.7)
[2024-10-21] MEDS: iohexol 350 mg/mL 500 mL Btl (per mL) IV (11:31)
[2024-10-21 11:36] VITALS: PULSE 70; O2SAT 100
[2024-10-21] MEDS: ondansetron 2 mg/ML SDV 2 mL 4 MG IVP (11:44)
[2024-10-21] MEDS: HYDROmorphone 0.5 MG/0.5 ML INJ IVP (11:45)
[2024-10-21 12:34] VITALS: BP 125/75; PULSE 75; O2SAT 99
== END 2024-10-21 12:37 | disposition home or self-care (01) ==
PROVIDERS: Emergency Provider Emergency Medicine; PCP Nurse Practitioner Family
DX: R55 Syncope and collapse (principal); S09.8XXA Other specified injuries of head, initial encounter; Z79.82 Long term (current) use of aspirin; Z79.01 Long term (current) use of anticoagulants; Z72.0 Tobacco use; Z98.890 Other specified postprocedural states; W19.XXXA Unspecified fall, initial encounter
CPT/HCPCS: 36415; 70450; 71260; 72125; 74177; 80053; 85025; 85610; 93005; 96374; 96375; 99285; J1171; J2405; J7030

== ENCOUNTER 2024-11-30 19:30 | Emergency (ER) | payer MEDICAID, SELFPAY ==
[2024-11-30 19:49] VITALS: BP 154/109; PULSE 93; RESP 17; TEMP 36.9; O2SAT 98; BMI 29.7
[2024-11-30 20:11] LABS: Bilirubin Urine Negative (Negative); Blood Urine 3+ (Negative); Glucose Urine UA Negative (Normal); Ketones Urine Negative (Negative); Leukocyte Esterase Urine Trace (Negative); Nitrate Urine Negative (Negative); Protein Urine 1+ (Negative); Specific Gravity, Urine 1.006 (1.005-1.030); Urine Appearance Clear (CLEAR)
[2024-11-30 20:16] LABS: Add Urine Microscopic? YES; Bacteria Urine None Seen /hpf; Hyaline Casts Urine 0-4 /lpf; RBC Urine >100 /hpf (0-2); Squamous Epithelial Cell Urine 0-5 /hpf (0-5); WBC Urine 0-5 /hpf (0-5)
[2024-11-30 20:23] LABS: Urine Color Red (Yellow)
[2024-11-30 20:24] LABS: Add Urine Culture? Yes
[2024-11-30 20:33] LABS: Basophils % 0.4 %; Eosinophils # 0.1 10^3/uL (0.0-0.8); Eosinophils % 1.1 %; Hematocrit 45.8 % (36-47); Lymphocytes # 1.9 10^3/uL (0.8-4.8); Lymphocytes % 27.2 %; Mean Corpuscular HGB Conc 31.4 g/dL (30-55); Mean Corpuscular Hemoglobin 27.9 pg (27-33); Mean Corpuscular Volume 88.6 fl (85-98); Mean Platelet Volume 10.2 fL (7.4-10.4); Monocytes # 0.6 10^3/uL (0.2-0.9); Neutrophils # 4.42 10^3/uL (1.8-7.7); Neutrophils % 63.2 %; Nucleated Red Blood Cells % 0 %; Platelet Count 250 10^3/cmm (157-399); Red Blood Count 5.17 10^6/uL (3.85-5.65); Red Cell Distribution Width 14.8 % (12.1-15.1); White Blood Count 7.01 10^3/uL (3.29-11.43)
--- NOTE | 2024-11-30 20:50 | CTR_ITS ---
PROCEDURE INFORMATION: Exam: CT Abdomen And Pelvis Without Contrast Exam date and time: 11/30/2024 8:58 PM Age: 44 years old Clinical indication: Abdominal pain; Flank; Right; Additional info: Flank pain/hematuria TECHNIQUE: Imaging protocol: Computed tomography of the abdomen and pelvis without contrast. Radiation optimization: All CT scans at this facility use at least one of these dose optimization techniques: automated exposure control; mA and/or kV adjustment per patient size (includes targeted exams where dose is matched to clinical indication); or iterative reconstruction. COMPARISON: CT chest abdpel w/*[id number] 10/21/2024 11:26 AM RADIATION DOSE METRICS: Total DLP (mGy-cm): 656 FINDINGS: Liver: There is a low attenuating lesion involving the dome of the right hepatic lobe measuring 1.6 cm corresponding to known hemangioma. The liver is enlarged. Gallbladder and biliary ducts: Normal. No calcified stones. No ductal dilation. Pancreas: Normal. No ductal dilation. Spleen: Normal. No splenomegaly. Adrenal glands: Normal. No mass. Kidneys and ureters: No renal stones, hydronephrosis or hydroureter. No ureteral stones. Stomach and bowel: No inflammatory change identified involving the GI tract. No signs of bowel obstruction. Fecal stasis present. Appendix: No evidence of appendicitis. Intraperitoneal space: Unremarkable. No free air. No significant fluid collection. Vasculature: Unremarkable. No abdominal aortic aneurysm. Lymph nodes: Unremarkable. No enlarged lymph nodes. Urinary bladder: Unremarkable as visualized. Reproductive: The uterus is surgically absent. Bones/joints: Unremarkable. No acute fracture. Soft tissues: Postoperative changes from ventral hernia repair with mesh. CT/CT kidney stone [id number] IMPRESSION: 1. Negative exam for renal stones and obstructive uropathy. No acute abnormality. 2. Fecal stasis.
--- NOTE | 2024-11-30 20:50 | W.ED.ABDPA2 ---
HPI - Abdominal Pain General: Chief Complaint: Abdominal Pain Stated Complaint: blood in urine,back and abd pain,8wks postop Heart Time Seen by Provider: 11/30/24 20:34 History of Present Illness: 44-year-old female presents to the emergency room complaining of back and abdominal pain with hematuria that began today. Patient is 8 weeks postop from valve surgery she is on warfarin. She last checked her INR about a month ago. No vomiting no diarrhea no fever sweats or chills. Patient had a artificial valve to replace a bicuspid aortic valve. Associated Symptoms: Denies chills, dysuria and fever(s) Related Data Home Medications ?Medication ?Instructions ?Recorded ?Confirmed baclofen 10 mg tablet 10 mg PO BID 08/18/24 10/21/24 aspirin 81 mg tablet,delayed 81 mg PO DAILY 10/15/24 10/21/24 release (Adult Low Dose Aspirin) docusate sodium 100 mg capsule 100 mg PO DAILY 10/15/24 10/21/24 gabapentin 100 mg capsule 100 mg PO TID 10/15/24 10/21/24 lidocaine 5 % topical patch 1 patch topical DAILY 10/15/24 10/21/24 (DermacinRx Lidocan) metoprolol succinate 25 mg 25 mg PO DAILY 10/15/24 10/21/24 tablet,extended release 24 hr sennosides 8.6 mg capsule (senna) 8.6 mg PO DAILY 10/15/24 10/21/24 acetaminophen 325 mg tablet 650 mg PO QID PRN Pain 10/21/24 10/21/24 cyclobenzaprine 10 mg tablet 10 mg PO TID 10/21/24 10/21/24 epinephrine 0.3 mg/0.3 mL See Rx Instructions .Route .COMPLEX 10/21/24 10/21/24 injection, auto-injector ondansetron 4 mg disintegrating See Rx Instructions .Route .COMPLEX 10/21/24 10/21/24 tablet Previous Rx's ?Medication ?Instructions ?Recorded warfarin 4 mg tablet 4 mg PO DAILY #90 tabs 10/15/24 cefpodoxime 200 mg tablet 200 mg PO BID #20 tabs 11/30/24 Allergies Allergy/AdvReac Type Severity Reaction Status Date / Time morphine Allergy ALGY-Hives Verified 10/15/24 14:51 Review of Systems Const: Denies: fever(s) or chills Card: Denies: chest pain Resp: Denies: dyspnea GI: Denies: abdominal pain : Reports: flank pain; Denies: dysuria, urinary frequency or urinary urgency Musc: Denies: neck pain or back pain Skin/Breast: Denies: rash PFSH ED PFSH: Medical History NSVT (nonsustained ventricular tachycardia) Mitral valve regurgitation Aortic valve regurgitation Surgical History S/P partial hysterectomy History of hernia repair Hx of section Family History Brother Hypertension Grandmother Hypertension Maternal Diabetes Maternal Mother Hypertension Stroke Diabetes Breast cancer Grandfather Cancer Maternal--unsure if liver or lung Father Cirrhosis of liver Social History Smoking and tobacco/nicotine status: current every day tobacco/nicotine user Alcohol intake: current Alcohol intake frequency: 3 or more drinks per day Substance/Drug Use: current 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 Marital status: Physical Exam Const: COMMON NORMALS: no acute distress GENERAL APPEARANCE: cooperative and comfortable ORIENTATION/CONSCIOUSNESS: Yes awake, Yes oriented to person, Yes oriented to place and Yes oriented to time HENMT: COMMON NORMALS: normocephalic, atraumatic and hearing grossly normal bilaterally HEAD & SCALP: normocephalic and atraumatic Resp: COMMON NORMALS: normal respiratory effort, No retractions, No use of accessory muscles and clear to auscultation bilaterally AUSCULTATION: clear to auscultation bilaterally Cardio: COMMON NORMALS: regular rate, regular rhythm and No murmurs present (Cardio) RATE: regular rate RHYTHM: regular rhythm GI: COMMON NORMALS: Soft to palpation and No hepatosplenomegaly present AUSCULTATION: Yes normoactive bowel sounds PALPATION: Yes Soft to palpation, No Tenderness to palpation present (GI), No Guarding due to palpation present (GI) and Yes No hepatosplenomegaly present : BLADDER/KIDNEY EXAM: Yes CVA tenderness Back/Pelvis: GENERAL BACK: Yes CVA tenderness Extremity: COMMON NORMALS: normal to inspection, capillary refill normal, no clubbing, cyanosis or edema, no calf tenderness and no pedal edema Neuro: SENSORIUM/ORIENTATION: Yes oriented to person, Yes oriented to place and Yes oriented to time Skin: COMMON NORMALS: no rashes or lesions noted GENERAL SKIN EXAM: no rashes or lesions noted Course Vital Signs: Vital signs: Vital Signs Temperature 98.4 F 11/30/24 19:49 Pulse Rate 85 11/30/24 22:11 Respiratory Rate 16 11/30/24 22:11 Blood Pressure 119/77 11/30/24 22:11 Pulse Oximetry 97 11/30/24 22:11 Oxygen Delivery Me thod Room Air 11/30/24 21:07 MDM - Abdominal Pain Medical Decision Making Hematuria no sign of nephrolithiasis. She is therapeutic with her anticoagulation given her artificial valve. Will start her on antibiotics. Contacted lab for them to culture urine. Patient is not having any discomfort at this time. If blood persists will need to recheck INR and possibly refer to urology referred findings to the patient. Medical Records I reviewed the patient's medical records. Lab Data I reviewed the patient's lab results. 11/30/24 20:24 11/30/24 20:24 Labs/Radiology: Radiology Impressions Abdomen/Pelvis CT 11/30/24 20:50 IMPRESSION: 1. Negative exam for renal stones and obstructive uropathy. No acute abnormality. 2. Fecal stasis. Laboratory Results WBC 7.01 10^3/uL (3.29-11.43) 11/30/24 20:24 RBC 5.17 10^6/uL (3.85-5.65) 11/30/24 20:24 Hgb 14.40 g/dL (11.27-16.99) 11/30/24 20:24 Hct 45.8 % (36-47) 11/30/24 20:24 MCV 88.6 fl (85-98) 11/30/24 20:24 MCH 27.9 pg (27-33) 11/30/24 20:24 MCHC 31.4 g/dL (30-55) 11/30/24 20:24 RDW 14.8 % (12.1-15.1) 11/30/24 20:24 Plt Count 250 10^3/cmm (157-399) 11/30/24 20:24 MPV 10.2 fL (7.4-10.4) 11/30/24 20:24 Neut % (Auto) 63.2 % 11/30/24 20:24 Lymph % (Auto) 27.2 % 11/30/24 20:24 Fill[place] % (Auto) 8.0 % 11/30/24 20:24 Eos % (Auto) 1.1 % 11/30/24 20:24 Baso % (Auto) 0.4 % 11/30/24 20:24 Neut # (Auto) 4.42 10^3/uL (1.8-7.7) 11/30/24 20:24 Lymph # (Auto) 1.9 10^3/uL (0.8-4.8) 11/30/24: Fill[place] # (Auto) 0.6 10^3/uL (0.2-0.9) 11/30/24:24 Eos # (Auto) 0.1 10^3/uL (0.0-0.8) 11/30/24: Baso # (Auto) 0.0 10^3/uL (0.0-0.1) 11/30/24: Nucleated RBC % (auto) 0 % 11/30/24: Nucleated RBCs # 0.0 /100WBC 11/30/24 20: PT 32.40 SECONDS (12.1-14.9) H 11/30/24 20:24 INR 2.96 (0.8-1.2) H 11/30/24 20:24 Sodium 141 mmol/L (136-145) 11/30/24 20:24 Potassium 3.7 mmol/L (3.5-5.1) 11/30/24 20:24 Chloride 107 mmol/L (98-107) 11/30/24 20:24 Carbon Dioxide 22 mmol/L (22-29) 11/30/24 20:24 Anion Gap 15.7 (5-19) 11/30/24 20:24 BUN 8 mg/dL (6-20) 11/30/24 20:24 Creatinine 0.6 mg/dL (0.5-0.9) 11/30/24 20:24 GFR Calculation 109.1 mL/min (90-130) 11/30/24 20:24 Glucose 84 mg/dL (65-115) 11/30/24 20:24 Calculated Osmolality 290 mOsm/kg (285-295) 11/30/24 20:24 Calcium 9.0 mg/dL (8.5-10.5) 11/30/24 20:24 Total Bilirubin 0.2 mg/dL (0.15-1.2) 11/30/24 20:24 AST 18 U/L (0-32) 11/30/24 20:24 ALT 10 U/L (0-33) 11/30/24 20:24 Alkaline Phosphatase 96 U/L (35-105) 11/30/24 20:24 Total Protein 6.8 g/dL (6.6-8.7) 11/30/24 20: Albumin 3.8 g/dL (3.5-5.2) 11/30/24 20: Globulin 3.0 g/dL (1.3-4.6) 11/30/24 20:24 Urine Color Red (Yellow) A 11/30/24 19:55 Urine Appearance Clear (CLEAR) 11/30/24 19:55 Urine pH 8.0 (5-7) A 11/30/24 19:55 Ur Specific [place] 1.006 (1.005-1.030) 11/30/24 19:55 Urine Protein 1+ (Negative) A 11/30/24 19:55 Urine Glucose (UA) Negative (Normal) 11/30/24 19:55 Urine Ketones Negative (Negative) 11/30/24 19:55 Urine Blood 3+ (Negative) A 11/30/24 19:55 Urine Nitrate Negative (Negative) 11/30/24 19:55 Urine Bilirubin Negative (Negative) 11/30/24 19:55 Urine Urobilinogen 1.0 mg/dL (Negative) 11/30/24 19:55 Ur Leukocyte Esterase Trace (Negative) A 11/30/24 19:55 Urine RBC >100 /hpf (0-2) H 11/30/24 19:55 Urine WBC 0-5 /hpf (0-5) 11/30/24 19:55 Ur Squamous Epith Cells 0-5 /hpf (0-5) 11/30/24 19:55 Amorphous Sediment Not Reportable 11/30/24 19:55 Urine Bacteria None seen /hpf (NONE) 11/30/24 19:55 Hyaline Casts 0-4 /lpf H 11/30/24 19:55 All radiology interpretation(s) finalized by discharge Discharge Plan Discharge Patient Disposition: Home Clinical Impression: S/P AVR (aortic valve replacement), Hypertrophic cardiomyopathy, Chronic anticoagulation Condition: Stable Prescriptions: New cefpodoxime 200 mg tablet 200 mg PO BID Qty: 20 0RF Rx Instructions: must administer with a meal/food No Action aspirin [Adult Low Dose Aspirin] 81 mg tablet,delayed release (DR/EC) 81 mg PO DAILY lidocaine [DermacinRx Lidocan] 5 % adhesive patch,medicated 1 patch topical DAILY Rx Instructions: leave on most painful area for up to 12 hrs docusate sodium 100 mg capsule 100 mg PO DAILY gabapentin 100 mg capsule 100 mg PO TID metoprolol succinate 25 mg tablet extended release 24 hr 25 mg PO DAILY senna 8.6 mg capsule 8.6 mg PO DAILY warfarin 4 mg tablet 4 mg PO DAILY Qty: 90 2RF Rx Instructions: As instructed by the doctor baclofen 10 mg tablet 10 mg PO BID cyclobenzaprine 10 mg tablet 10 mg PO TID acetaminophen 325 mg tablet 650 mg PO QID PRN (Reason: Pain) epinephrine 0.3 mg/0.3 mL auto-injector See Rx Instructions .ROUTE .COMPLEX Rx Instructions: ;USE TO INJECT INTRAMUSCULARLY NEEDED FOR ANAPHYLAXIS ondansetron 4 mg tablet,disintegrating See Rx Instructions .ROUTE .COMPLEX Rx Instructions: dissolve 1 tablet on tongue then swallow with saliva EVERY 8 HOURS NEEDED FOR NAUSEA AND VOMITING Discharge Orders: Discharge ED (Routine); Ordered 11/30/24 Ordered By: Jerry Peralta Referrals: Sierra Law FNP [Primary Care Provider, Nurse Practitioner] Discharge Diet: Usual diet Discharge Activity: Increase activity as tolerated Patient Instructions: Opioid Safety, Pain Management Activity Restrictions/Additional Instructions: Thank you for choosing [facility] for your healthcare needs today. It is very important that you follow up as instructed or that you return to the Emergency Department should you have concerns or if your condition changes or worsens in any way. You were seen in the emergency room with complaints of blood in your urine. CT did not show any stones or obstruction. Urine showed blood but there was no white blood cells. We will start you on some antibiotics. Your INR was within therapeutic range. If bleeding continues does not improve with antibiotics follow-up with your primary care doctor for referral to urology. Print Language: Zambian Coding Level of Care Code ED Social Service Director for Camilla Brown
[2024-11-30 20:51] LABS: Alanine Aminotransferase 10 U/L (0-33); Albumin Level 3.8 g/dL (3.5-5.2); Alkaline Phosphatase 96 U/L (35-105); Anion Gap 15.7 (5-19); Aspartate Amino Transferase 18 U/L (0-32); Blood Urea Nitrogen 8 mg/dL (6-20); Carbon Dioxide 22 mmol/L (22-29); Chloride 107 mmol/L (98-107); Creatinine Clr Calc Pharmacy 113.6428; Glomerular Filtration Rate 109.1 mL/min (90-130); Glucose 84 mg/dL (65-115); Osmolality Calculated 290 mOsm/kg (285-295); Potassium 3.7 mmol/L (3.5-5.1); Sodium 141 mmol/L (136-145); Total Bilirubin 0.2 mg/dL (0.15-1.2); Total Protein 6.8 g/dL (6.6-8.7)
[2024-11-30 21:07] VITALS: BP 131/102; PULSE 86; RESP 16; O2SAT 97
[2024-11-30 21:27] LABS: INR 2.96 (0.8-1.2)
[2024-11-30 22:11] VITALS: BP 119/77; PULSE 85; RESP 16; O2SAT 97
== END 2024-11-30 22:10 | disposition home or self-care (01) ==
PROVIDERS: Emergency Medicine; Emergency Provider Family Medicine; PCP Nurse Practitioner Family
DX: I42.2 Other hypertrophic cardiomyopathy (principal); Z79.01 Long term (current) use of anticoagulants; Z95.2 Presence of prosthetic heart valve; R31.9 Hematuria, unspecified; Z79.899 Other long term (current) drug therapy; Z79.82 Long term (current) use of aspirin; F17.200 Nicotine dependence, unspecified, uncomplicated
CPT/HCPCS: 36415; 74176; 80053; 81001; 85025; 85610; 87086; 99284

== ENCOUNTER → 2025-04-05 09:14 | Outpatient (BNVA) | payer MEDICAID, SELFPAY | PROVIDERS: PCP Nurse Practitioner Family; Visit Provider Specialist | DX: M25.512 Pain in left shoulder (principal); G89.29 Other chronic pain | CPT/HCPCS: 73030 ==